=== PATIENT | male | born 1940 | race Caucasian/White ===

== ENCOUNTER 2017-09-05 12:59 | Emergency (ER) | payer MEDICARE, OTHER ==
[2017-09-05 13:29] VITALS: BP 133/52
[2017-09-05] MEDS ORDERED: Take Home: Sulfamethoxazole/Trimethoprim 800-160 MG Tab, 2 Tab Pack PO ONE (13:58)
--- NOTE | 2017-09-05 14:08 | EDM.PDOC ---
ED HPI GENERAL MEDICAL PROBLEM - General Chief Complaint: Genitourinary Problem Stated Complaint: UTI Time Seen by Provider: 09/05/17 13:15 Source of Information: Reports: Patient History Limitations: Reports: No Limitations - History of Present Illness INITIAL COMMENTS - FREE TEXT/NARRATIVE: Patient comes into the emergency department today with a history of 3 or 4 days of foul-smelling urine and cloudy urine. Patient uses a straight catheter to urinate 3-4 times a day. 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 In order to drain out the one pocket he must catheterize 3 times a day to clear that pocket out. He is still able to urinate normally to drain the other bladder pocket. He has a long-standing history with UTIs. His last antibiotic course has been greater than 3 months ago. He last used Bactrim with great success. He would like to evaluate and use this medication again if at all possible. He denies any fever denies any burning denies any low pelvic pain or flank pain denies any nausea vomiting or diarrhea. Onset: Sudden Quality: Reports: Dull, Pressure Severity: Mild - Related Data Allergies Allergy/AdvReac Type Severity Reaction Status Date / Time Iodinated Contrast- Oral and Allergy Severe Anaphylactic Verified 09/05/17 13:20 IV Dye Shock shellfish derived Allergy Severe Anaphylactic Verified 09/05/17 13:20 Shock Lcyadms-Erf-Goi Reductase Allergy Intermediate Liver Verified 09/05/17 13:20 Inhibitor Problems iodine Allergy Unknown Cannot Verified 09/05/17 13:20 Remember Home Meds: Home Meds Sulfamethoxazole/Trimethoprim [Bactrim Ds Tablet] 1 each PO BID 2 Days #4 tablet 09/05/17 [Rx] Past Medical History Genitourinary History: Reports: Renal Disease Other Genitourinary History: Stage 2 Endocrine/Metabolic History: Reports: Diabetes, Type II Oncologic (Cancer) History: Reports: Other (See Below) Other Oncologic History: multiple myeloma Social & Family History - Tobacco Use Smoking Status *Q: Never Smoker - Alcohol Use Days Per Week of Alcohol Use: 0 - Recreational Drug Use Recreational Drug Use: No - Living Situation & Occupation Living situation: Reports: , with Spouse ED ROS GENERAL - Review of Systems Review Of Systems: See Below Constitutional: Reports: No Symptoms HEENT: Reports: No Symptoms Respiratory: Reports: No Symptoms Cardiovascular: Reports: No Symptoms Endocrine: Reports: No Symptoms GI/Abdominal: Reports: No Symptoms : Reports: Urinary Retention, Other (foul smelling urine, cloudy ) Musculoskeletal: Reports: No Symptoms Skin: Reports: No Symptoms ED EXAM, RENAL/ - Physical Exam Exam: See Below Exam Limited By: No Limitations General Appearance: Alert, WD/WN, No Apparent Distress Respiratory/Chest: No Respiratory Distress, No Accessory Muscle Use Cardiovascular: Normal Peripheral Pulses, Regular Rate, Rhythm GI/Abdominal: Normal Bowel Sounds, Soft, Non-Tender, No Distention, No Abnormal Bruit Back Exam: Normal Inspection, Full Range of Motion Extremities: Normal Inspection, Normal Range of Motion, Normal Capillary Refill Neurological: Alert, Oriented, Normal Reflexes Psychiatric: Normal Affect, Normal Mood Skin Exam: Warm, Dry, Intact, Normal Color Course - Vital Signs Last Recorded V/S: Last Vital Signs Temp 37.1 C 09/05/17 13:20 Pulse 79 09/05/17 13:20 Resp 16 09/05/17 13:20 BP 133/52 L 09/05/17 13:20 Pulse Ox 98 09/05/17 13:20 - Orders/Labs/Meds Orders: Active Orders 24 hr Category Date Time Status UA W/MICROSCOPIC [URIN] Stat Lab 09/05/17 13:19 Ordered Sulfamethoxazole/Trimethoprim [Take Home: Sulfameth/ Med 09/05/17 13:58 Once Trimet 800-160MG, 2 Pack] 1 packet PO ONETIME ONE Labs: Laboratory Tests 09/05/17 Range/Units 13:19 Urine Color Yellow (YELLOW) Urine Appearance Cloudy H (CLEAR) Urine pH 5.0 (5.0-8.0) Ur Specific Hiram <=1.005 Urine Protein 100 H (NEGATIVE) mg/dL Urine Glucose (UA) Negative (NEGATIVE) mg/dL Urine Ketones Negative (NEGATIVE) mg/dL Urine Occult Blood Moderate H (NEGATIVE) Urine Nitrite Negative (NEGATIVE) Urine Bilirubin Negative (NEGATIVE) Urine Urobilinogen 0.2 (0.2) EU/dL Ur Leukocyte Esterase Large H (NEGATIVE) Urine RBC 30-40 H (NOT SEEN) /HPF Urine WBC Packed (NOT SEEN) /HPF Ur Squamous Epith Cells Few H (NEGATIVE) /HPF Urine Bacteria Many H (NEGATIVE) /HPF Urine Mucus Not seen (NEGATIVE) /LPF Departure - Departure Time of Disposition: 14:00 Disposition: Home, Self-Care 01 Condition: Good Clinical Impression: UTI (urinary tract infection) Qualifiers: Urinary tract infection type: site unspecified Hematuria presence: without hematuria Qualified Code(s): N39.0 - Urinary tract infection, site not specified - Discharge Information Instructions: Urinary Tract Infection, Adult, Sulfamethoxazole; Trimethoprim, SMX-TMP tablets Referrals: Anny Ribera, [Primary Care Provider] - Additional Instructions: 1. rest 2. increase water intake 3. Can take ibuprofen or Tylenol for pain and discomfort 4. Avoid irritating products 5. Follow up with PCP if not better within a week 6. Did send urine for urine culture will call with results - My Orders Last 24 Hours: My Active Orders 09/05/17 13:19 UA W/MICROSCOPIC [URIN] Stat 09/05/17 13:58 Sulfamethoxazole/Trimethoprim [Take Home: Sulfameth/Trimet 800-160MG, 2 Pack] 1 packet PO ONETIME ONE - Assessment/Plan Last 24 Hours: My Active Orders 09/05/17 13:19 UA W/MICROSCOPIC [URIN] Stat 09/05/17 13:58 Sulfamethoxazole/Trimethoprim [Take Home: Sulfameth/Trimet 800-160MG, 2 Pack] 1 packet PO ONETIME ONE Assessment:: 1. UTI Plan: 1. UA/UC completed in the ER today 2. patient is prescribed Bactrim for 3 days. If culture comes back positive with an organism that is resistant to Bactrim staff will contact the patient and order a different antibiotic per provider who will be on shift 3. Education provided to the patient regarding UTI symptoms and ways to reduce his comfort 4. Patient is advised to follow up with PCP U or urology specialty within the week regarding long-term management if necessary 5. Patient was sent home with 2 Bactrim tablets from the ER today and a prescription for 2 extra days was supplied to be filled on wednesday
== END 2017-09-05 14:15 | disposition home or self-care (01) ==
LOC: VM.ED 12:59
DX: N39.0 Urinary tract infection, site not specified (principal); N32.89 Other specified disorders of bladder; E11.22 Type 2 diabetes mellitus with diabetic chronic kidney disease; N18.2 Chronic kidney disease, stage 2 (mild); Z96.0 Presence of urogenital implants; Z91.041 Radiographic dye allergy status; Z91.013 Allergy to seafood
CPT/HCPCS: 81001; 87086; 87088; 87186; 99283; A9270

== ENCOUNTER 2018-08-22 04:58 | Emergency (ER) | payer MEDICARE, OTHER ==
[2018-08-22] MEDS ORDERED: Sodium Chloride 0.9% 10 ML Syringe FLUSH PRN (05:09)
[2018-08-22] MEDS ORDERED: Furosemide 40 MG/4 ML VIAL IV ONE ×2 (05:11→06:22)
--- NOTE | 2018-08-22 06:06 | EDM.PDOC ---
ED HPI GENERAL MEDICAL PROBLEM - General Chief Complaint: Respiratory Problem Stated Complaint: Shortness of breath Time Seen by Provider: 08/22/18 05:00 Source of Information: Reports: Patient History Limitations: Reports: No Limitations - History of Present Illness INITIAL COMMENTS - FREE TEXT/NARRATIVE: Pt. presents to ER with complaints of respiratory distress. He states that he has had a "cold" for the past several days with cough and chest congestion. He states that he became increasingly short of breath yesterday and last night. Denies any chest pain. No nausea, vomiting, or diarrhea. states that the patient has been chilled. Denies any purulent sputum. Pt. has a history of CAD according to his medical record but he denies this. He also has a history of aortic regurgitation. Last echo shows EF of 60% and dilation of the L ventricle. Pt. was picked up by EMS this AM. He was given a duoneb via EMS. Pt. reports is dyspnea improved since taking the nebulizer. Pt. has a history of chronic peripheral edema and states that this is not worse than normal. He has not been weighing himself. He states that he has been taking his medications as prescribed. Onset Date: 08/21/18 Associated Symptoms: Reports: Shortness of Breath Treatments FISH FRYER: Reports: Breathing Treatments, Oxygen Other Treatments FISH FRYER: Duo neb - Related Data Allergies Allergy/AdvReac Type Severity Reaction Status Date / Time Iodinated Contrast- Oral and Allergy Severe Anaphylactic Verified 08/22/18 05:34 IV Dye Shock shellfish derived Allergy Severe Anaphylactic Verified 08/22/18 05:34 Shock iodine Allergy Unknown Cannot Verified 08/22/18 05:34 Remember Apewdyq-Rht-Fwz Reductase AdvReac Intermediate Liver Verified 08/22/18 05:34 Inhibitor Problems Past Medical History Cardiovascular History: Reports: CAD Genitourinary History: Reports: Renal Disease Other Genitourinary History: Stage 2 Endocrine/Metabolic History: Reports: Diabetes, Type II Oncologic (Cancer) History: Reports: Other (See Below) Other Oncologic History: multiple myeloma Social & Family History - Living Situation & Occupation Living situation: Reports: , with Spouse ED ROS GENERAL - Review of Systems Review Of Systems: See Below Constitutional: Reports: Fever, Chills, Malaise, Fatigue HEENT: Reports: No Symptoms Respiratory: Reports: Shortness of Breath, Cough Cardiovascular: Reports: No Symptoms, Edema, Lightheadedness Endocrine: Reports: No Symptoms GI/Abdominal: Reports: No Symptoms : Reports: No Symptoms Musculoskeletal: Reports: No Symptoms Skin: Reports: No Symptoms Neurological: Reports: No Symptoms Psychiatric: Reports: No Symptoms Hematologic/Lymphatic: Reports: No Symptoms Immunologic: Reports: No Symptoms ED EXAM, GENERAL - Physical Exam Exam: See Below Exam Limited By: No Limitations General Appearance: Alert, WD/WN, No Apparent Distress Throat/Mouth: Normal Inspection, Normal Lips, Normal Teeth, Normal Gums, No Airway Compromise Neck: Normal Inspection, Supple, Non-Tender Respiratory/Chest: No Respiratory Distress, Lungs Clear, Normal Breath Sounds, No Accessory Muscle Use, Chest Non-Tender Cardiovascular: Normal Peripheral Pulses, Regular Rate, Rhythm, No Edema, No Gallop, No JVD, No Murmur, No Rub Peripheral Pulses: 3+: Radial (R) GI/Abdominal: Normal Bowel Sounds, Soft, Non-Tender, No Organomegaly, No Distention (Male) Exam: Deferred Rectal (Males) Exam: Deferred Back Exam: Normal Inspection, Full Range of Motion Extremities: Normal Inspection, Normal Range of Motion Neurological: Alert, Oriented, CN II-XII Intact, Normal Cognition, No Motor/ Sensory Deficits Psychiatric: Normal Affect, Anxious Skin Exam: Warm, Dry, No Rash, Pallor EKG INTERPRETATION Rhythm: NSR [place]: Normal P-Wave: Present QRS: RBBB ST-T: Normal QT: Normal Course - Vital Signs Last Recorded V/S: Last Vital Signs Temp 37.3 C 08/22/18 05:00 Pulse 100 08/22/18 05:00 Resp 20 08/22/18 05:00 BP 165/71 H 08/22/18 05:00 Pulse Ox 96 08/22/18 05:30 - Orders/Labs/Meds Orders: Active Orders 24 hr Category Date Time Status Cardiac Monitoring [RC] CONTINUOUS Care 08/22/18 05:09 Active EKG Documentation Completion [RC] STAT Care 08/22/18 05:09 Active Oxygen Therapy [RC] PRN Care 08/22/18 05:09 Active Chest 1V Frontal [CR] Stat Exams 08/22/18 05:10 Taken CBC WITH AUTO DIFF [HEME] Stat Lab 08/22/18 05:42 Results COMPREHENSIVE METABOLIC PN,CMP [CHEM] Stat Lab 08/22/18 05:42 Received CRP [C-REACTIVE PROTEIN] [CHEM] Stat Lab 08/22/18 05:42 Received LACTIC ACID [CHEM] Stat Lab 08/22/18 05:42 Received MAGNESIUM [CHEM] Stat Lab 08/22/18 05:42 Received MANUAL DIFFERENTIAL QA/NC [HEME] Stat Lab 08/22/18 05:42 Results PHOSPHORUS [CHEM] Stat Lab 08/22/18 05:42 Received PRO B-TYPE NATRIUR PEPT,BNPPRO [CHEM] Stat Lab 08/22/18 05:42 Received TSH ULTRASENSITIVE [CHEM] Stat Lab 08/22/18 05:42 Received Sodium Chloride 0.9% [Saline Flush] Med 08/22/18 05:09 Active 10 ml FLUSH ASDIRECTED PRN Peripheral IV Insertion Adult [OM.PC] Routine Oth 08/22/18 05:10 Ordered Medication Orders Sodium Chloride (Saline Flush) 10 ml FLUSH ASDIRECTED PRN PRN Reason: Keep Vein Open Labs: Laboratory Tests 08/22/18 08/22/18 08/22/18 Range/Units 05:42 05:42 05:48 WBC 4.4 (4.0-10.0) x10^3/uL RBC 2.85 L (4.5-6.0) x10^6/uL Hgb 9.7 L (14.0-18.0) g/dL Hct 29.6 L (40.0-52.0) % MCV 103.9 H (78.0-93.0) fL MCH 34.0 H (26.0-32.0) pg MCHC 32.8 (32.0-36.0) g/dL RDW Coeff of Naz 13.3 (10.0-15.0) % Plt Count 90 L (130-400) x10^3/uL Add Manual Diff Yes PT 11.2 (10.0-12.8) SEC INR 1.0 L (2.0-3.5) POC Troponin I 7.95 H* (0.00-0.08) ng/mL POC Result Comm Called critical res Meds: Medications Generic Name Dose Route Start Last Admin Trade Name Freq PRN Reason Stop Dose Admin Sodium Chloride 10 ml 08/22/18 05:09 Saline Flush FLUSH ASDIRECTED PRN Keep Vein Open Discontinued Medications Generic Name Dose Route Start Last Admin Trade Name Freq PRN Reason Stop Dose Admin Furosemide 40 mg 08/22/18 05:11 Lasix IV 08/22/18 05:12 ONETIME ONE - Radiology Interpretation Free Text/Narrative:: cardiomegaly, no obvious infiltrate or failure pattern. - Re-Assessments/Exams Free Text/Narrative Re-Assessment/Exam: 08/22/18 06:27 Pt. was given 1 duoneb treatment and reported some improvement in dyspnea. Pt. is being given lasix 40mg IV. Free Text/Narrative Re-Assessment/Exam: 08/22/18 06:44 Pt. was given lasix 40mg IV. He was started on heparin 4000u bolus and a 1000u/ hr drip. Departure - Departure Time of Disposition: 06:46 Disposition: Home, Self-Care 01 Clinical Impression: CHF, Congestive heart failure, NSTEMI (non-ST elevated myocardial infarction) - Discharge Information Forms: ED Department Discharge - Problem List Review Problem List Initiated/Reviewed/Updated: Yes - My Orders Last 24 Hours: My Active Orders 08/22/18 05:09 Cardiac Monitoring [RC] CONTINUOUS EKG Documentation Completion [RC] STAT Oxygen Therapy [RC] PRN Sodium Chloride 0.9% [Saline Flush] 10 ml FLUSH ASDIRECTED PRN 08/22/18 05:10 Chest 1V Frontal [CR] Stat Peripheral IV Insertion Adult [OM.PC] Routine 08/22/18 05:42 CBC WITH AUTO DIFF [HEME] Stat COMPREHENSIVE METABOLIC PN,CMP [CHEM] Stat CRP [C-REACTIVE PROTEIN] [CHEM] Stat LACTIC ACID [CHEM] Stat MAGNESIUM [CHEM] Stat MANUAL DIFFERENTIAL QA/NC [HEME] Stat PHOSPHORUS [CHEM] Stat PRO B-TYPE NATRIUR PEPT,BNPPRO [CHEM] Stat TSH ULTRASENSITIVE [CHEM] Stat - Assessment/Plan Last 24 Hours: My Active Orders 08/22/18 05:09 Cardiac Monitoring [RC] CONTINUOUS EKG Documentation Completion [RC] STAT Oxygen Therapy [RC] PRN Sodium Chloride 0.9% [Saline Flush] 10 ml FLUSH ASDIRECTED PRN 08/22/18 05:10 Chest 1V Frontal [CR] Stat Peripheral IV Insertion Adult [OM.PC] Routine 08/22/18 05:42 CBC WITH AUTO DIFF [HEME] Stat COMPREHENSIVE METABOLIC PN,CMP [CHEM] Stat CRP [C-REACTIVE PROTEIN] [CHEM] Stat LACTIC ACID [CHEM] Stat MAGNESIUM [CHEM] Stat MANUAL DIFFERENTIAL QA/NC [HEME] Stat PHOSPHORUS [CHEM] Stat PRO B-TYPE NATRIUR PEPT,BNPPRO [CHEM] Stat TSH ULTRASENSITIVE [CHEM] Stat Plan: Pt. will be transferred via [facility] ground ambulance. Dr. Alcantara accepts the patient in transfer. Will continue telemetry and O2 per NC. Discussed findings with patient and . All questions were answered.
[2018-08-22 06:21] LABS: ANION GAP 19.1 mmol/L (10-20)
[2018-08-22] MEDS ORDERED: Heparin Sodium 5,000 Units/ML Vial IVPUSH ONE ×2 (06:36→06:41)
[2018-08-22] MEDS ORDERED: Heparin Sodium/0.45% NaCl 25,000 UNITS/500 ML BAG IV SCH ×2 (06:45)
--- NOTE | 2018-08-22 08:09 | CR ---
[id number] RAD/RAD Chest PA or AP 1V EXAM: SINGLE VIEW CHEST. INDICATION: SHORTNESS OF BREATH COMPARISON: CORRELATION IS MADE WITH THE EXAM OF MARCH 16, 2018. FINDINGS: The lungs are clear. The cardiomediastinal contour is enlarged but stable. IMPRESSION: NO PNEUMONIA OR EDEMA. Galileo Tripathi MD 08/22/18 0808 Thank you for allowing us to participate in the care of your patient.
[2018-08-22 09:59] VITALS: BP 129/78
== END 2018-08-22 10:20 | disposition home or self-care (01) ==
LOC: VM.ED 04:58
DX: I21.4 Non-ST elevation (NSTEMI) myocardial infarction (principal); I50.9 Heart failure, unspecified; E11.22 Type 2 diabetes mellitus with diabetic chronic kidney disease; N18.2 Chronic kidney disease, stage 2 (mild); I25.10 Atherosclerotic heart disease of native coronary artery without angina pectoris; Z85.828 Personal history of other malignant neoplasm of skin; Z91.013 Allergy to seafood; Z91.09 Other allergy status, other than to drugs and biological substances; Z88.8 Allergy status to other drugs, medicaments and biological substances; Z91.041 Radiographic dye allergy status
CPT/HCPCS: 36415; 71045; 80053; 83605; 83735; 83880; 84100; 84443; 84484; 85025; 85610; 86140; 93005; 93010; 96365; 96366; 96375; 99284-GF; 99285-25; J1644; J1940

== ENCOUNTER 2019-04-15 22:41 | Emergency (ER) | payer MEDICARE, OTHER ==
[2019-04-15 22:49] VITALS: BP 143/64; PULSE 103
[2019-04-15] MEDS ORDERED: Acetaminophen 325 MG Tab PO ONE (22:58)
--- NOTE | 2019-04-15 22:59 | EDM.PDOC ---
ED HPI GENERAL MEDICAL PROBLEM - General Chief Complaint: Fever Stated Complaint: low grade fever Time Seen by Provider: 04/15/19 22:55 Source of Information: Reports: Patient, Family History Limitations: Reports: No Limitations - History of Present Illness INITIAL COMMENTS - FREE TEXT/NARRATIVE: The patient comes in with a fever. He did not take any Tylenol at home. He does have multiple myeloma. His was inquiring about whether or not he got sick when he went to the [facility] for a hamburger. Patient states that that is a possibility. Patient also described to me that he has a complicated bladder and that he has had a history of self cathetering. I did talk to him about prostate issues but he quickly dismissed that and he has a chronic urinary tract infection that he is trying to combat. He has tolerated Bactrim in the past. And with good success. Therefore I was going to put him on that he was unable to give us a urinary specimen. We gave him fluids and water and he was unable to pass his urine. He started sleeping. Chest x-ray was normal. I was concerned about sepsis but he did not have leukocytosis. Patient brought in the urinary specimen the next day and that tested positive for a urinary tract infection culture is pending and I recommended Bactrim. His called back carious of the anabiotic choice and she said that she will be talking to their primary. I also gave him a prescription for and she knew a shot of the Bactrim and tried to reiterate that I did not pick this medication without some Haines and some direction. At any rate I do hope that he will get on the management that he needs. His pulse came down to the 80s after treating his fever. When he left he was afebrile. Having very little suprapubic discomfort or dysuria per say and nothing beyond his baseline. Onset: Today Duration: Getting Worse Location: Reports: Generalized Improves with: Reports: None Worsens with: Reports: None Context: Reports: Sick Contact (maybe today) Associated Symptoms: Reports: Fever/Chills, Loss of Appetite, Malaise - Related Data Allergies Allergy/AdvReac Type Severity Reaction Status Date / Time Iodinated Contrast Media Allergy Severe Anaphylactic Verified 04/15/19 22:43 Shock shellfish derived Allergy Severe Anaphylactic Verified 04/15/19 22:43 Shock iodine Allergy Unknown Cannot Verified 04/15/19 22:43 Remember Clogcsn-Siv-Nhh Reductase AdvReac Intermediate Liver Verified 04/15/19 22:43 Inhibitor Problems Home Meds: Home Meds Betamethasone Dipropionate [Diprosone 0.05% Crm] 1 applic TOP DAILY 09/20/18 [ History] Clotrimazole/Betamethasone Dip [Lotrisone Cream] 1 applic TOP BID PRN 09/20/18 [ History] Cyanocobalamin (Vitamin B-12) [Vitamin B-12] 1 tab PO DAILY 09/20/18 [History] Ergocalciferol (Vitamin D2) [Vitamin D2] 1.25 mg PO Q7D 09/20/18 [History] Gabapentin [Neurontin] 200 mg PO TID 09/20/18 [History] Glucosamine/D3/Boswellia Cris [Glucosamine Daily Complex Tab] 2 tab PO DAILY [History] Isosorbide Dinitrate 20 mg PO TID 09/20/18 [History] L.acidoph,Paracasei, B.lactis [Probiotic] 1 cap PO DAILY 09/20/18 [History] Magnesium Chloride [Mag-64] 64 mg PO QID 09/20/18 [History] Nitroglycerin 0.4 mg SL ASDIRECTED PRN 09/20/18 [History] Rosuvastatin Calcium 20 mg PO BEDTIME 09/20/18 [History] Tamsulosin [Tamsulosin 24 Hr] 0.4 mg PO BEDTIME 09/20/18 [History] Vit B Cmplx NO3/Fa/C/Biot/Zinc [Nephplex Rx] 1 tab PO DAILY 09/20/18 [History] Furosemide [Lasix] 20 mg PO DAILY PRN 04/15/19 [History] Ixazomib Citrate [Ninlaro] 1 tab PO ASDIRECTED 04/15/19 [History] valACYclovir [Valtrex] 1 tab PO DAILY 04/15/19 [History] Sulfamethoxazole/Trimethoprim [Bactrim Ds Tablet] 1 each PO DAILY #10 tablet 12/26 [Rx] Past Medical History Cardiovascular History: Reports: CAD Gastrointestinal History: Reports: GERD Genitourinary History: Reports: Renal Disease Other Genitourinary History: Stage 2 Endocrine/Metabolic History: Reports: Diabetes, Type II Oncologic (Cancer) History: Reports: Other (See Below) Other Oncologic History: multiple myeloma Social & Family History - Tobacco Use Smoking Status *Q: Never Smoker - Living Situation & Occupation Living situation: Reports: , with Spouse ED ROS GENERAL - Review of Systems Review Of Systems: Comprehensive ROS is negative, except as noted in HPI. ED EXAM, GENERAL - Physical Exam Exam: See Below Exam Limited By: No Limitations General Appearance: Alert, Mild Distress Respiratory/Chest: No Respiratory Distress, Lungs Clear Cardiovascular: Normal Peripheral Pulses, Regular Rate, Rhythm GI/Abdominal: Normal Bowel Sounds, Soft, Non-Tender, Other (No pain about the suprapubic area.) Course - Vital Signs Last Recorded V/S: Last Vital Signs Temp 37.6 C 04/16/19 00:50 Pulse 103 H 04/15/19 22:45 Resp 18 04/15/19 22:45 BP 143/64 H 04/15/19 22:45 Pulse Ox 95 04/15/19 22:45 - Orders/Labs/Meds Orders: Active Orders 24 hr Category Date Time Status CULTURE BLOOD [BC] Stat Lab 04/15/19 23:17 Received CULTURE BLOOD [BC] Stat Lab 04/15/19 23:22 Received CULTURE URINE [RM] Stat Lab 04/15/19 23:56 Ordered Blood Culture x2 Reflex Set [OM.PC] Stat Oth 04/15/19 22:56 Ordered Labs: Laboratory Tests 04/15/19 04/15/19 04/15/19 Range/Units 23:17 23:17 23:17 WBC 9.8 (4.0-10.0) x10^3/uL RBC 3.44 L (4.5-6.0) x10^6/uL Hgb 10.9 L (14.0-18.0) g/dL Hct 33.4 L (40.0-52.0) % MCV 97.1 H D (78.0-93.0) fL MCH 31.7 (26.0-32.0) pg MCHC 32.6 (32.0-36.0) g/dL RDW Coeff of Naz 14.9 (10.0-15.0) % Plt Count 154 (130-400) x10^3/uL Neut % (Auto) 83.1 H (50.0-80.0) % Lymph % (Auto) 7.0 L (25.0-50.0) % [place] % (Auto) 9.5 (2.0-11.0) % Eos % (Auto) 0.2 (0.0-4.0) % Baso % (Auto) 0.2 (0.2-1.2) % Sodium 136 (136-145) mmol/L Potassium 5.0 (3.5-5.1) mmol/L Chloride 101 (98-107) mmol/L Carbon Dioxide 20 L (21-32) mmol/L Anion Gap 20.0 (10-20) mmol/L BUN 50 H (7-18) mg/dL Creatinine 3.0 H (0.70-1.30) mg/dL Est Cr Clr Drug Dosing TNP Estimated GFR (MDRD) 20 Glucose 125 H (74-106) mg/dL Lactic Acid 0.9 (0.4-2.0) mmol/L Calcium 9.6 (8.5-10.1) mg/dL Corrected Calcium 10.24 H (8.5-10.1) mg/dL Magnesium 1.6 L (1.8-2.4) mg/dL Total Bilirubin 0.5 (0.2-1.0) mg/dL AST 14 L (15-37) U/L ALT 28 (16-63) U/L Alkaline Phosphatase 95 (46-116) U/L C-Reactive Protein 3.9 H (<=0.9) mg/dL Total Protein 8.0 (6.4-8.2) g/dL Albumin 3.2 L (3.4-5.0) g/dL Globulin 4.8 Albumin/Globulin Ratio 0.67 Meds: Medications Discontinued Medications Generic Name Dose Route Start Last Admin Trade Name Freq PRN Reason Stop Dose Admin Acetaminophen 650 mg 04/15/19 22:58 04/15/19 23:12 Tylenol PO 04/15/19 22:59 650 mg NOW ONE Administration Trimethoprim/Sulfamethoxazole 1 packet 04/16/19 15:28 04/16/19 15:48 Take Home: Sulfameth/Trimet 800-160mg, 2 Pack PO 04/16/19 15:29 1 packet ONETIME ONE Administration Departure - Departure Time of Disposition: 00:47 Disposition: Home, Self-Care 01 Condition: Good Clinical Impression: Dysuria, Febrile illness, acute - Discharge Information *PRESCRIPTION DRUG MONITORING PROGRAM REVIEWED*: Not Applicable *COPY OF PRESCRIPTION DRUG MONITORING REPORT IN PATIENT TRAY: Not Applicable Prescriptions: Sulfamethoxazole/Trimethoprim [Bactrim Ds Tablet] 1 each PO DAILY #10 tablet Referrals: Anny Ribera DO [Primary Care Provider] - Forms: ED Department Discharge Additional Instructions: ED HPI GENERAL MEDICAL PROBLEM - General Chief Complaint: Fever Stated Complaint: low grade fever Time Seen by Provider: 04/15/19 22:55 Source of Information: Reports: Patient, Family History Limitations: Reports: No Limitations - History of Present Illness Onset: Today Duration: Getting Worse Location: Reports: Generalized Improves with: Reports: None Worsens with: Reports: None Context: Reports: Sick Contact (maybe today) Associated Symptoms: Reports: Fever/Chills, Loss of Appetite, Malaise - Related Data Allergies Allergy/AdvReac Type Severity Reaction Status Date / Time Iodinated Contrast Media Allergy Severe Anaphylactic Verified 04/15/19 22:43 Shock shellfish derived Allergy Severe Anaphylactic Verified 04/15/19 22:43 Shock iodine Allergy Unknown Cannot Verified 04/15/19 22:43 Remember Yknhasb-Jzv-Ycq Reductase AdvReac Intermediate Liver Verified 04/15/19 22:43 Inhibitor Problems Home Meds: Home Meds Betamethasone Dipropionate [Diprosone 0.05% Crm] 1 applic TOP DAILY 09/20/18 [ History] Clotrimazole/Betamethasone Dip [Lotrisone Cream] 1 applic TOP BID PRN 09/20/18 [ History] Cyanocobalamin (Vitamin B-12) [Vitamin B-12] 1 tab PO DAILY 09/20/18 [History] Ergocalciferol (Vitamin D2) [Vitamin D2] 1.25 mg PO Q7D 09/20/18 [History] Gabapentin [Neurontin] 200 mg PO TID 09/20/18 [History] Glucosamine/D3/Boswellia Cris [Glucosamine Daily Complex Tab] 2 tab PO DAILY [History] Isosorbide Dinitrate 20 mg PO TID 09/20/18 [History] L.acidoph,Paracasei, B.lactis [Probiotic] 1 cap PO DAILY 09/20/18 [History] Magnesium Chloride [Mag-64] 64 mg PO QID 09/20/18 [History] Nitroglycerin 0.4 mg SL ASDIRECTED PRN 09/20/18 [History] Rosuvastatin Calcium 20 mg PO BEDTIME 09/20/18 [History] Tamsulosin [Tamsulosin 24 Hr] 0.4 mg PO BEDTIME 09/20/18 [History] Vit B Cmplx NO3/Fa/C/Biot/Zinc [Nephplex Rx] 1 tab PO DAILY 09/20/18 [History] Furosemide [Lasix] 20 mg PO DAILY PRN 04/15/19 [History] Ixazomib Citrate [Ninlaro] 1 tab PO ASDIRECTED 04/15/19 [History] valACYclovir [Valtrex] 1 tab PO DAILY 04/15/19 [History] Past Medical History Cardiovascular History: Reports: CAD Gastrointestinal History: Reports: GERD Genitourinary History: Reports: Renal Disease Other Genitourinary History: Stage 2 Endocrine/Metabolic History: Reports: Diabetes, Type II Oncologic (Cancer) History: Reports: Other (See Below) Other Oncologic History: multiple myeloma Social & Family History - Tobacco Use Smoking Status *Q: Never Smoker - Living Situation & Occupation Living situation: Reports: , with Spouse Course - Vital Signs Last Recorded V/S: Last Vital Signs Temp 38.3 C H 04/15/19 22:45 Pulse 103 H 04/15/19 22:45 Resp 18 04/15/19 22:45 BP 143/64 H 04/15/19 22:45 Pulse Ox 95 04/15/19 22:45 - Orders/Labs/Meds Orders: Active Orders 24 hr Category Date Time Status CXR [Chest 1V Frontal] [CR] Stat Exams 04/15/19 22:58 Ordered CBC WITH AUTO DIFF [HEME] Stat Lab 04/15/19 22:56 Ordered COMPREHENSIVE METABOLIC PN,CMP [CHEM] Stat Lab 04/15/19 22:56 Ordered CRP [C-REACTIVE PROTEIN] [CHEM] Stat Lab 04/15/19 22:56 Ordered CULTURE BLOOD [BC] Stat Lab 04/15/19 22:56 Ordered CULTURE BLOOD [BC] Stat Lab 04/15/19 22:56 Ordered LACTIC ACID [CHEM] Stat Lab 04/15/19 22:56 Ordered MAGNESIUM [CHEM] Stat Lab 04/15/19 22:56 Ordered Blood Culture x2 Reflex Set [OM.PC] Stat Oth 04/15/19 22:56 Ordered Meds: Medications Discontinued Medications Generic Name Dose Route Start Last Admin Trade Name Elio PRN Reason Stop Dose Admin Acetaminophen 650 mg 04/15/19 22:58 Tylenol PO 04/15/19 22:59 NOW ONE Departure - Departure Time of Disposition: 22:55 Disposition: Home, Self-Care 01 Condition: Good - Discharge Information *PRESCRIPTION DRUG MONITORING PROGRAM REVIEWED*: Not Applicable *COPY OF PRESCRIPTION DRUG MONITORING REPORT IN PATIENT TRAY: Not Applicable Referrals: Anny Ribera, DO [Primary Care Provider] - Forms: ED Department Discharge - My Orders Last 24 Hours: My Active Orders 04/15/19 22:56 CBC WITH AUTO DIFF [HEME] Stat COMPREHENSIVE METABOLIC PN,CMP [CHEM] Stat CRP [C-REACTIVE PROTEIN] [CHEM] Stat CULTURE BLOOD [BC] Stat CULTURE BLOOD [BC] Stat LACTIC ACID [CHEM] Stat MAGNESIUM [CHEM] Stat Blood Culture x2 Reflex Set [OM.PC] Stat 04/15/19 22:58 CXR [Chest 1V Frontal] [CR] Stat - Assessment/Plan Last 24 Hours: My Active Orders 04/15/19 22:56 CBC WITH AUTO DIFF [HEME] Stat COMPREHENSIVE METABOLIC PN,CMP [CHEM] Stat CRP [C-REACTIVE PROTEIN] [CHEM] Stat CULTURE BLOOD [BC] Stat CULTURE BLOOD [BC] Stat LACTIC ACID [CHEM] Stat MAGNESIUM [CHEM] Stat Blood Culture x2 Reflex Set [OM.PC] Stat 04/15/19 22:58 CXR [Chest 1V Frontal] [CR] Stat Lab work looks good. Chest X-ray appears normal. Take the antibiotics as prescibed. - My Orders Last 24 Hours: My Active Orders 04/15/19 22:56 Blood Culture x2 Reflex Set [OM.PC] Stat 04/15/19 23:17 CULTURE BLOOD [BC] Stat 04/15/19 23:22 CULTURE BLOOD [BC] Stat 04/15/19 23:56 CULTURE URINE [RM] Stat - Assessment/Plan Last 24 Hours: My Active Orders 04/15/19 22:56 Blood Culture x2 Reflex Set [OM.PC] Stat 04/15/19 23:17 CULTURE BLOOD [BC] Stat 04/15/19 23:22 CULTURE BLOOD [BC] Stat 04/15/19 23:56 CULTURE URINE [RM] Stat
[2019-04-15 23:50] LABS: CHLORIDE,CL 101 mmol/L (98-107); SODIUM,NA 136 mmol/L (136-145)
--- NOTE | 2019-04-16 07:10 | CR ---
[id number] RAD/RAD Chest PA or AP 1V EXAM: SINGLE VIEW CHEST. INDICATION: SHORTNESS OF BREATH COMPARISON: CORRELATION IS MADE WITH THE EXAM OF AUGUST 22, 2018 FINDINGS: The lungs are clear. The cardiac silhouette is enlarged but stable IMPRESSION: NO PNEUMONIA OR EDEMA Galileo Tripathi MD 04/16/19 0708 Thank you for allowing us to participate in the care of your patient.
[2019-04-16] MEDS ORDERED: Take Home: Sulfamethoxazole/Trimethoprim 800-160 MG Tab, 2 Tab Pack PO ONE (15:28)
== END 2019-04-16 00:54 | disposition home or self-care (01) ==
LOC: VM.ED 22:41
DX: R50.9 Fever, unspecified (principal); R30.0 Dysuria; E11.9 Type 2 diabetes mellitus without complications; Z88.8 Allergy status to other drugs, medicaments and biological substances; Z91.041 Radiographic dye allergy status; Z91.013 Allergy to seafood
CPT/HCPCS: 36415; 71045; 80053; 83605; 83735; 85025; 86140; 87040; 99284-25; 99284-GF; A9270-GY

== ENCOUNTER 2019-04-17 13:35 | Inpatient (IN) | payer MEDICARE, OTHER ==
[2019-04-17] MEDS ORDERED: Nitroglycerin 0.4 MG Tab.SL SL PRN (17:16)
[2019-04-17] MEDS ORDERED: ZALEPLON 5 MG PO PRN (17:16)
[2019-04-17] MEDS ORDERED: IXAZOMIB CITRATE 3 MG PO SCH (17:30)
[2019-04-17] MEDS ORDERED: Aspirin 81 MG Tab.Chew PO SCH (18:00)
[2019-04-17] MEDS ORDERED: Ergocalciferol (Vitamin D2) 1.25 MG Cap PO SCH (18:00)
[2019-04-17] MEDS: Heparin Sodium 5,000 Units/ML Vial SUBCUT SCH ×2 (18:04→22:19)
[2019-04-17] MEDS: Meropenem 1 GM SDV IVPUSH SCH (18:05)
[2019-04-17] MEDS: SODIUM ZIRCONIUM CYCLOSILICATE 10 GM PO SCH (18:14)
[2019-04-17] MEDS: Magnesium Chloride 64 MG Tab.ER PO SCH (19:27)
[2019-04-17] MEDS: Gabapentin 100 MG Cap PO SCH (19:27)
[2019-04-17] MEDS: Isosorbide Dinitrate 10 MG Tab PO SCH (19:27)
[2019-04-17] MEDS: Sodium Chloride 0.9% 10 ML Syringe FLUSH PRN (19:28)
[2019-04-17] MEDS ORDERED: Gabapentin 100 MG Cap PO SCH (20:00)
[2019-04-17] MEDS ORDERED: atorvaSTATin 40 MG Tab PO SCH (20:00)
[2019-04-17] MEDS ORDERED: Tamsulosin 0.4 MG Cap.ER PO SCH (20:00)
[2019-04-18] MEDS: Heparin Sodium 5,000 Units/ML Vial SUBCUT SCH ×2 (06:27→15:22)
[2019-04-18] MEDS: Sodium Chloride 0.9% 10 ML Syringe FLUSH PRN ×2 (06:27→06:28)
[2019-04-18] MEDS: Meropenem 1 GM SDV IVPUSH SCH (06:27)
[2019-04-18 07:17] LABS: ANION GAP 18.2 mmol/L (10-20)
[2019-04-18] MEDS: Gabapentin 100 MG Cap PO SCH (07:43)
[2019-04-18] MEDS: Isosorbide Dinitrate 10 MG Tab PO SCH ×2 (07:43→11:16)
[2019-04-18] MEDS: Magnesium Chloride 64 MG Tab.ER PO SCH ×3 (07:44→15:22)
[2019-04-18] MEDS ORDERED: Vitamin B Complex Tab.ER PO SCH (08:00)
[2019-04-18] MEDS ORDERED: Lactobacillus Rhamnosus GG (Probiotic) Cap PO SCH (08:00)
[2019-04-18] MEDS ORDERED: valACYclovir 1,000 MG Tab PO SCH (08:00)
[2019-04-18] MEDS ORDERED: Magnesium Sulfate/Water 2 GM in Premix Bag 1 BAG IV ONE (09:12)
--- NOTE | 2019-04-18 10:35 | HP ---
CHIEF COMPLAINT: Urinary tract infection. HISTORY OF PRESENT ILLNESS: This 79-year-old male with multiple myeloma and chronic kidney disease stage 4 with a history of recurrent UTIs with history of urethral stricture. He does straight caths about 4 times at home. He has had previous ESBL, last infection was in December. He had been having a low-grade fever, went into the ER on , but they were unable to get a urine sample. He did collect a specimen, brought it back the next day, which was positive. He admits he is having some burning when he pees normally. He is able to pee some. He pees more as the day goes on, it works better. He has no new low back pain. He has no suprapubic abdominal pain. He has not had any high fevers, but he just does not feel well. Last night he had some pretty bad epigastric pain, but it did not get worse like when he had his heart attack. He tried some soda. It did not help. It lasted maybe an hour. He finally took nitroglycerin and it went away. The patient actually had an [place] back in August. He was recommended for bypass surgery, but given his medical comorbidities, it was decided that he would not have surgery. His EF was 45 to 50% at that time. He has not noticed any trouble breathing. No increased swelling. He actually has nitroglycerin, which he has taken a fair amount of for quite sometime, especially like if he eats later like at 6:30. He is on a new treatment called Ninlaro 1 time a week, which is due today. He has been on this treatment like 6 to 8 weeks for the myeloma. The patient is no longer on steroids. He has quit his Aldactone. He follows with a kidney specialist. Otherwise, he did have 100.4 temp last night. He continues to have urinary frequency. No blood. ALLERGIES: Include contrast dye, iodine, shellfish, statins. MEDICATIONS: His medication list is reviewed and shows Valtrex 500 daily, Ninlaro 3 mg once a week, Neurontin twice a day, Flomax 0.4 at bedtime, Lasix as needed for swelling, Sonata, nitroglycerin, Isordil 20 mg 3 times a day, Sodium Zirconium Cyclosilicate at noon, Drisdol 50,000 units once a week, Culturell 1 cap daily, Crestor 20 mg at bedtime, B12 vitamin, Mag. Other medications include aspirin 81 mg daily. He told the nurse he was taking a probiotic, glucosamine. PAST MEDICAL HISTORY: Includes coronary artery disease and non-ST elevation [place], multivessel disease, 100% RCA. Anemia of chronic kidney disease stage 4, essential hypertension, chronic kidney disease stage 4, diabetic neuropathy and neuropathy with type 2 diabetes, not requiring any medications. Fatty liver disease, gastritis with GERD, hypercalcemia of malignancy in the past, hyperlipidemia, hyperkalemia, mild aortic regurgitation, multiple myeloma, obesity, sleep apnea positional, recurrent UTIs, peripheral vascular disease, urethral stricture. SURGICAL HISTORY: Surgically, the patient had a previous bladder sphincter repair in 1972. Previous colonoscopy. SOCIAL HISTORY: The patient is . He is a retired professor. He lives at home with his . He has never smoked cigarettes, but it appears he smokes cigars on occasion. Does use alcohol on occasion. FAMILY HISTORY: Both parents are . His mother had heart disease and a CABG. REVIEW OF SYSTEMS: General: There has been no major weight changes. No high fevers, but low-grade fevers and some chills. HEENT: No sore throat. Respiratory: No cough. Cardiac: Stated in HPI. No palpitations. GI: Some of that epigastric pain ,but no other nausea or GI symptoms. : As stated in HPI. Otherwise, all systems are reviewed and found to be negative unless otherwise stated. LABORATORY DATA: Lab work did show the troponin elevated at 0.1. His white count was normal at 6.9, hemoglobin 10 which is about his baseline, platelets 157. Glucose 123, BUN 55, creatinine 3.31, recently was 3. Sodium 137, potassium 4.8, chloride 106, bicarb 19, calcium 10. GFR is around 18 in the clinic. EKG reviewed showed normal sinus rhythm, right bundle-branch block and an old anterior infarct which is same as previous EKG. He also had a chest x- ray in the ER which had not showed any acute findings. ASSESSMENT AND PLAN: 1. Complicated urinary tract infection in a patient who does straight catheterizations. 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 At this point, given his history of ESBL, low-grade fevers, I feel he is kind of tired. Fatigue might be contributing somewhat. He is at risk for worsening infection. We will give him some meropenem 0.[address]-elevation myocardial infarction. His chest pain was last night. He is completely asymptomatic right now. I will just put him on DVT prophylaxis doses of heparin and repeat a troponin to see the trend. We will also place him on telemetry. 3. Chronic systolic heart failure. He uses Lasix only p.r.n. I do not feel he is in any heart failure currently, but we will get a proBNP with his next lab work. 4. Chronic kidney disease stage 4 with hyperkalemia. We will continue his home medications. 5. Multiple myeloma. He will receive his weekly medication. I did not see any cause for concern for infections with it. 6. Type 2 diabetes. We will just do some Accu-Cheks and have him on a diabetic diet. 7. Gastroesophageal reflux disease. He is not currently taking any PPI. 8. Neuropathy. He is on Neurontin. 9. Benign prostatic hyperplasia. He is on Flomax. PLAN: The patient will be admitted for acute cares for IV antibiotics. We are awaiting his urine culture, which is already showing gram-negative rods, but the susceptibility should be out tomorrow. We will repeat lab work in the morning. Code level 1, DVT prophylaxis with heparin. MKA: 04/17/2019 21:55:44 MODL: 04/18/2019 01:56:42 /[id number]
--- NOTE | 2019-04-18 11:51 | PN ---
Progress Note for SUE SIMMS Date: 04/18/2019 Room #: VM.204 SUBJECTIVE: This is hospital day #2 for a 79-year-old admitted with a non-ST- elevation GA and a UTI. The patient states he believes the antibiotics are already helping. He is feeling better. He did spike a fever up to 100.9 last evening. He otherwise had no chest pain yesterday, but did have a little trying to get out of bed today. He is not coughing or wheezing. He has no abdominal pain. He has a good appetite. He had a few PVCs on telemetry. He normally takes magnesium at home, it was 1.6 yesterday. OBJECTIVE: Vital Signs: His temperature this morning 98.7, pulse 76, blood pressure 117/53, respiratory rate 16, O2 of 95 on room air. General: He is in no acute distress. Heart: Regular rate and rhythm. S1, S2 without murmur. Lungs: Sounds are clear to auscultation bilaterally without crackles or wheezes. Abdomen: Nondistended, nontender. Extremities: Warm and dry. No edema. Mental Status: Alert and orientated x3. LABORATORY DATA: Lab work does show his white count normal at 5.7, hemoglobin 9.8, platelets 135. Sodium 138, potassium 4.2, chloride 105, bicarb 19, BUN 52, creatinine 3, glucose 131. ProBNP mildly elevated at 1394. Repeat troponin normal now at 0.08, troponin max was 0.1. A urine culture is still showing gram- negative rods. ASSESSMENT: 1. Complicated urinary tract infection with gram-negative rods in a patient who has a history of stricture and does straight catheterizing. Improving now on day 2 IV meropenem. We will continue with the same. His culture results should be available later today. 2. [id number]-fcjileovd myocardial infarction with known coronary artery disease, but not felt to be a coronary artery bypass graft candidate. He had a little bit of angina this morning, but otherwise it has resolved. We will continue to monitor him on telemetry. 3. Chronic systolic heart failure. He has not been using any regular Lasix. I feel his proBNP is probably elevated due to his renal failure. His lungs sound clear. He had a chest x-ray prior to admission that looked okay. We will just continue to monitor. Likely he will be back on his regular Lasix on discharge or p.r.n., which he was doing. 4. Chronic kidney disease, stage 4. Creatinine is at baseline. 5. Multiple myeloma, on treatments. 6. Type 2 diabetes. His blood sugars have not been significantly elevated. 7. Gastroesophageal reflux disease. 8. Neuropathy. 9. BPH, on Flomax. Postvoid residuals were not done as he is already straight catheterizing. PLAN: At this point, the patient will continue acute cares with IV Merrem. We will give him some IV magnesium today. For DVT prophylaxis, he is on heparin. We will get him started on incentive spirometry. He does have nitroglycerin available to take if needed. Anticipate possible discharge home later today. MKA: 04/18/2019 10:55:22 MODL: 04/18/2019 11:43:21 /[id number]
[2019-04-18] MEDS ORDERED: SODIUM ZIRCONIUM CYCLOSILICATE 10 GM PO SCH (12:00)
[2019-04-18] MEDS ORDERED: Meropenem 1 GM in Sodium Chloride 0.9% 100 ML IV ONE (14:00)
[2019-04-18 14:04] VITALS: BP 140/63; PULSE 70
--- NOTE | 2019-04-18 16:44 | PCM.DCSUM1 ---
Discharge Summary - Hospital Course Free Text/Narrative:: Patient admitted from clinic with fever since 04/15 had UA positive on 04/16 clt returned ESBL which he has a history of. He was given IV Merrem. He is now afebrile and feeling better with less dysuria. He normally straight cath at home. He has had many UTi's is on treatment for myeloma which he did receive here. Also had Iv magesium did have PVC's on tele and a little angina this AM but no further significant chest pain and has a known hx of CAD but is not felt to be a candidate for CABG. Troponin initially mildly elevated repeat was 0.8. Lungs were clear and breathing was ok. BNP mildly elevated he had not been using his home lasix. Cr at baseline 3.0 on d/c. No fluids given here. - Discharge Data Discharge Date: 04/18/19 Discharge Disposition: Home, Self-Care 01 Condition: Good - Referral to Home Health Primary Care Physician: Anny Ribera, DO - Discharge Diagnosis/Problem(s) (1) Urinary tract infection due to ESBL Klebsiella SNOMED Code(s): 274528998730908 ICD Code: N39.0 - URINARY TRACT INFECTION, SITE NOT SPECIFIED; B96.89 - OTH BACTERIAL AGENTS THE CAUSE OF DISEASES CLASSD [id number] Status: Acute Priority: High Current Visit: Yes (2) NSTEMI (non-ST elevated myocardial infarction) SNOMED Code(s): 35539791 ICD Code: I21.4 - NON-ST ELEVATION (NSTEMI) MYOCARDIAL INFARCTION Status: Acute Priority: High Current Visit: Yes (3) Hypomagnesemia SNOMED Code(s): 574977262 ICD Code: E83.42 - HYPOMAGNESEMIA Status: Acute Priority: Medium Current Visit: Yes (4) Multiple myeloma SNOMED Code(s): 445940465 ICD Code: C90.00 - MULTIPLE MYELOMA NOT HAVING ACHIEVED REMISSION Status: Chronic Priority: Medium Current Visit: Yes Qualifiers: Multiple myeloma remission status: not in remission Qualified Code(s): C90.00 - Multiple myeloma not having achieved remission (5) CHF, Congestive heart failure SNOMED Code(s): 45216264 ICD Code: I50.9 - HEART FAILURE, UNSPECIFIED Status: Chronic Priority: Medium Current Visit: No (6) Diabetes mellitus type 2 SNOMED Code(s): 58290511 ICD Code: E11.9 - TYPE 2 DIABETES MELLITUS WITHOUT COMPLICATIONS Status: Chronic Priority: Medium Current Visit: No Problem Details: Plan to monitor glucose (7) Renal impairment SNOMED Code(s): 921722342 ICD Code: N28.9 - DISORDER OF KIDNEY AND URETER, UNSPECIFIED Status: Chronic Priority: Medium Current Visit: Yes (8) CAD (coronary artery disease) SNOMED Code(s): 44422160 ICD Code: I25.10 - ATHSCL HEART DISEASE OF [place] CORONARY ARTERY W/O ANG PCTRS Status: Chronic Priority: High Current Visit: Yes Qualifiers: Coronary Disease-Associated Artery/Lesion type: [place] artery [place] vs. transplanted heart: [place] heart Associated angina: with stable angina Qualified Code(s): I25.118 - Atherosclerotic heart disease of [place] coronary artery with other forms of angina pectoris (9) GERD (gastroesophageal reflux disease) SNOMED Code(s): 131807239 ICD Code: K21.9 - GASTRO-ESOPHAGEAL REFLUX DISEASE WITHOUT ESOPHAGITIS Status: Acute Priority: Medium Current Visit: No Qualifiers: Esophagitis presence: without esophagitis Qualified Code(s): K21.9 - Gastro -esophageal reflux disease without esophagitis - Patient Instructions Diet: Usual Diet as Tolerated Activity: As Tolerated Driving: May Drive Today Showering/Bathing: May Shower Notify Provider of: Fever, Increased Pain, Nausea and/or Vomiting - Discharge Plan Prescriptions/Med Rec: levoFLOXacin [Levaquin] 250 mg PO DAILY #12 tab Home Medications: Home Meds Betamethasone Dipropionate [Diprosone 0.05% Crm] 1 applic TOP DAILY PRN [History] Clotrimazole/Betamethasone Dip [Lotrisone Cream] 1 applic TOP BID PRN 09/20/18 [ History] Cyanocobalamin (Vitamin B-12) [Vitamin B-12] 1 tab PO DAILY 09/20/18 [History] Ergocalciferol (Vitamin D2) [Vitamin D2] 1 cap PO Q7D 09/20/18 [History] Glucosamine/D3/Boswellia Cris [Glucosamine Daily Complex Tab] 1 tab PO DAILY [History] Isosorbide Dinitrate 20 mg PO TID 09/20/18 [History] Magnesium Chloride [Mag-64] 64 mg PO QID 09/20/18 [History] Nitroglycerin 0.4 mg SL ASDIRECTED PRN 09/20/18 [History] Rosuvastatin Calcium 20 mg PO BEDTIME 09/20/18 [History] Tamsulosin [Flomax] 0.4 mg PO BEDTIME 09/20/18 [History] Vit B Cmplx NO3/Fa/C/Biot/Zinc [Nephplex Rx] 1 tab PO DAILY 09/20/18 [History] Furosemide [Lasix] 20 mg PO DAILY PRN 04/15/19 [History] Ixazomib Citrate [Ninlaro] 3 mg PO Q7D 04/15/19 [History] valACYclovir [Valtrex] 1 tab PO DAILY 04/15/19 [History] Aspirin 81 mg PO ASDIRECTED 04/17/19 [History] L.acidoph,Paracasei, B.lactis [Probiotic] 1 each PO ASDIRECTED 04/17/19 [History ] Sodium Zirconium Cyclosilicate [Lokelma] 10 gm PO ASDIRECTED 04/17/19 [History] Zaleplon [Sonata] 5 mg PO BEDTIME PRN 04/17/19 [History] Gabapentin [Neurontin] 200 mg PO BID #0 04/18/19 [Rx] levoFLOXacin [Levaquin] 250 mg PO DAILY #12 tab 04/18/19 [Rx] - Discharge Summary/Plan Comment DC Time >30 min.: Yes - General Info Date of Service: 04/18/19 Admission Dx/Problem (Free Text: see dictated note today for exam - Patient Data Vitals - Most Recent: Last Vital Signs Temp 98.5 F 04/18/19 14:00 Pulse 70 04/18/19 14:00 Resp 16 04/18/19 14:00 BP 140/63 04/18/19 14:00 Pulse Ox 98 04/18/19 14:00 Weight - Most Recent: 119.748 kg I&O - Last 24 hours: Intake & Output 04/18/19 04/18/19 04/18/19 06:59 14:59 22:59 Intake Total 320 Balance 320 Lab Results - Last 24 hrs: Laboratory Results - last 24 hr 04/17/19 04/17/19 04/18/19 Range/Units 16:35 19:25 06:40 WBC 5.7 (4.0-10.0) x10^3/uL RBC 3.09 L (4.5-6.0) x10^6/uL Hgb 9.8 L (14.0-18.0) g/dL Hct 30.5 L (40.0-52.0) % MCV 98.7 H (78.0-93.0) fL MCH 31.7 (26.0-32.0) pg MCHC 32.1 (32.0-36.0) g/dL RDW Coeff of Naz 14.9 (10.0-15.0) % Plt Count 135 (130-400) x10^3/uL Neut % (Auto) 72.8 (50.0-80.0) % Lymph % (Auto) 12.1 L (25.0-50.0) % [place] % (Auto) 12.8 H (2.0-11.0) % Eos % (Auto) 2.1 (0.0-4.0) % Baso % (Auto) 0.2 (0.2-1.2) % Sodium (136-145) mmol/L Potassium (3.5-5.1) mmol/L Chloride (98-107) mmol/L Carbon Dioxide (21-32) mmol/L Anion Gap (10-20) mmol/L BUN (7-18) mg/dL Creatinine (0.70-1.30) mg/dL Est Cr Clr Drug Dosing mL/min Estimated GFR (MDRD) Glucose (74-106) mg/dL POC Glucose 163 H 160 H (74-106) mg/dL Calcium (8.5-10.1) mg/dL NT-Pro-B Natriuret Pep (<=450) pg/mL 04/18/19 04/18/19 04/18/19 Range/Units 06:40 06:40 06:41 WBC (4.0-10.0) x10^3/uL RBC (4.5-6.0) x10^6/uL Hgb (14.0-18.0) g/dL Hct (40.0-52.0) % MCV (78.0-93.0) fL MCH (26.0-32.0) pg MCHC (32.0-36.0) g/dL RDW Coeff of Naz (10.0-15.0) % Plt Count (130-400) x10^3/uL Neut % (Auto) (50.0-80.0) % Lymph % (Auto) (25.0-50.0) % [place] % (Auto) (2.0-11.0) % Eos % (Auto) (0.0-4.0) % Baso % (Auto) (0.2-1.2) % Sodium 138 (136-145) mmol/L Potassium 4.2 (3.5-5.1) mmol/L Chloride 105 (98-107) mmol/L Carbon Dioxide 19 L (21-32) mmol/L Anion Gap 18.2 (10-20) mmol/L BUN 52 H (7-18) mg/dL Creatinine 3.0 H (0.70-1.30) mg/dL Est Cr Clr Drug Dosing 19.28 mL/min Estimated GFR (MDRD) 20 Glucose 131 H (74-106) mg/dL POC Glucose 119 H (74-106) mg/dL Calcium 9.1 (8.5-10.1) mg/dL NT-Pro-B Natriuret Pep 1394 H (<=450) pg/mL 04/18/19 Range/Units 11:06 WBC (4.0-10.0) x10^3/uL RBC (4.5-6.0) x10^6/uL Hgb (14.0-18.0) g/dL Hct (40.0-52.0) % MCV (78.0-93.0) fL MCH (26.0-32.0) pg MCHC (32.0-36.0) g/dL RDW Coeff of Naz (10.0-15.0) % Plt Count (130-400) x10^3/uL Neut % (Auto) (50.0-80.0) % Lymph % (Auto) (25.0-50.0) % [place] % (Auto) (2.0-11.0) % Eos % (Auto) (0.0-4.0) % Baso % (Auto) (0.2-1.2) % Sodium (136-145) mmol/L Potassium (3.5-5.1) mmol/L Chloride (98-107) mmol/L Carbon Dioxide (21-32) mmol/L Anion Gap (10-20) mmol/L BUN (7-18) mg/dL Creatinine (0.70-1.30) mg/dL Est Cr Clr Drug Dosing mL/min Estimated GFR (MDRD) Glucose (74-106) mg/dL POC Glucose 155 H (74-106) mg/dL Calcium (8.5-10.1) mg/dL NT-Pro-B Natriuret Pep (<=450) pg/mL Med Orders - Current: Current Medications Aspirin (Aspirin) 81 mg PO WITHDINNER [facility] Last Admin: 04/17/19 18:04 Dose: 81 mg Atorvastatin Calcium (Lipitor) 80 mg PO BEDTIME [facility] Last Admin: 04/17/19 19:27 Dose: 80 mg Ergocalciferol (Vitamin D2) 1.25 mg PO Q7D [facility] Last Admin: 04/17/19 18:06 Dose: Not Given Gabapentin (Neurontin) 200 mg PO BID [facility] Last Admin: 04/18/19 07:43 Dose: 200 mg Heparin Sodium (Porcine) (Heparin Sodium) 5,000 units SUBCUT Q8H [facility] Last Admin: 04/18/19 15:22 Dose: 5,000 units Isosorbide Dinitrate (Isordil) 20 mg PO TID [facility] Last Admin: 04/18/19 11:16 Dose: 20 mg Lactobacillus Rhamnosus (Culturelle) 1 cap PO DAILY [facility] Last Admin: 04/18/19 07:44 Dose: 1 cap Magnesium Chloride (Mag-64) 64 mg PO QID [facility] Last Admin: 04/18/19 15:22 Dose: 64 mg Nitroglycerin (Nitrostat) 0.4 mg SL ASDIRECTED PRN PRN Reason: Chest Pain Ixazomib Citrate [ Ninlaro] 3 Mg # Patient's Own Med# 3 mg PO Q7D [facility] Last Admin: 04/17/19 17:30 Dose: 3 mg Zaleplon 5 Mg # (Patient's Own Med#) 5 mg PO BEDTIME PRN PRN Reason: Insomnia Last Admin: 04/17/19 21:07 Dose: 5 mg Sodium Zirconium Cyclosilicate [ Lokelma] 10 Gm # Patient Own Med# 10 gm PO DAILY@1200 [facility] Last Admin: 04/18/19 11:16 Dose: 10 gm Sodium Chloride (Saline Flush) 10 ml FLUSH ASDIRECTED PRN PRN Reason: Keep Vein Open Last Admin: 04/18/19 06:28 Dose: 10 ml Tamsulosin HCl (Flomax) 0.4 mg PO BEDTIME [facility] Last Admin: 04/17/19 19:27 Dose: 0.4 mg Valacyclovir HCl (Valtrex) 500 mg PO DAILY [facility] Last Admin: 04/18/19 07:44 Dose: 500 mg Vitamin B Complex (Balanced B-50) 1 each PO DAILY [facility] Last Admin: 04/18/19 07:44 Dose: 1 each Discontinued Medications Gabapentin (Neurontin) 200 mg PO TID [facility] Magnesium Sulfate 2 gm/ Premix 50 mls @ 25 mls/hr IV ONETIME ONE Stop: 04/18/19 11:11 Last Admin: 04/18/19 09:30 Dose: 25 mls/hr Meropenem 1 gm/ Sodium (Chloride) 100 mls @ 50 mls/hr IV ONETIME ONE Stop: 04/18/19 15:59 Last Admin: 04/18/19 14:01 Dose: 50 mls/hr Meropenem (Merrem) 0.5 gm IVPUSH Q12H [facility] Last Admin: 04/18/19 06:27 Dose: 0.5 gm Sodium Zirconium Cyclosilicate [ Lokelma] 10 Gm # Patient Own Med# 10 gm PO WITHDINNER [facility] Last Admin: 04/17/19 18:14 Dose: Not Given
== END 2019-04-18 17:00 | disposition home or self-care (01) | DRG 689 ==
LOC: VM.MS 15:20
PROVIDERS: ADMIT Internal Medicine; ATTEND Internal Medicine
DX: N39.0 Urinary tract infection, site not specified (principal); I21.4 Non-ST elevation (NSTEMI) myocardial infarction; I50.22 Chronic systolic (congestive) heart failure; N18.4 Chronic kidney disease, stage 4 (severe); C90.00 Multiple myeloma not having achieved remission; Z68.41 Body mass index [BMI] 40.0-44.9, adult; E87.5 Hyperkalemia; K21.9 Gastro-esophageal reflux disease without esophagitis; N40.0 Benign prostatic hyperplasia without lower urinary tract symptoms; E11.22 Type 2 diabetes mellitus with diabetic chronic kidney disease; B96.1 Klebsiella pneumoniae [K. pneumoniae] as the cause of diseases classified elsewhere; I25.10 Atherosclerotic heart disease of native coronary artery without angina pectoris; E83.42 Hypomagnesemia; I25.118 Atherosclerotic heart disease of native coronary artery with other forms of angina pectoris; D63.1 Anemia in chronic kidney disease; E66.9 Obesity, unspecified; Z79.899 Other long term (current) drug therapy; Z91.013 Allergy to seafood; Z91.041 Radiographic dye allergy status
CPT/HCPCS: 36415; 80048; 82962; 83880; 84484; 85025; A9270-GY; J1644; J2185; J3475; J7050

== ENCOUNTER 2020-04-24 15:48 | Emergency (ER) | payer MEDICARE, OTHER ==
[2020-04-24] MEDS ORDERED: Sodium Chloride 0.9% 10 ML Syringe FLUSH PRN (15:50)
--- NOTE | 2020-04-24 15:53 | EDM.PDOC ---
ED HPI GENERAL MEDICAL PROBLEM - General Stated Complaint: ER Time Seen by Provider: 04/24/20 15:50 Source of Information: Reports: Patient History Limitations: Reports: No Limitations - History of Present Illness INITIAL COMMENTS - FREE TEXT/NARRATIVE: Patient comes to the emergency department today from the cardiac rehab center for evaluation of chest tightness. This patient had a double bypass earlier this fall in February. He has been going to cardiac rehab twice a week. For about the past 3 weeks on his biweekly cardiac rehab session during his physical exertion walking on the treadmill he developed a bandlike chest pressure that is constant around his chest. This typically happens at about 12 to 13 minutes and once he discontinues his physical exercise this resolves. Today when he was ambulating on the treadmill he developed this very similar chest tightness band sensation around his chest at approximately 5 minutes which is not typical for him. He continued to ambulate for the next 2 minutes or so and his pain continued. He sat down and his pain resolved about 5 minutes later for a total of just under 10 minutes of bandlike chest pain. He had no diaphoresis shortness of breath nausea or vomiting. No weakness dizziness lightheadedness. He was brought to the emergency department for further evaluation. Upon arrival the patient is asymptomatic. He has no chest pain chest pressure shortness of breath diaphoresis nausea vomiting. No weakness dizziness lightheadedness. No palpitations. He has felt well over the past couple of days. He has had no acute complaints. No fever no chills. No cough or congestion. No abdominal pain nausea or vomiting. No hematuria dysuria or urinary frequency. No black or tarry stools. No COVID symptoms no COVID exposure. - Related Data Allergies Allergy/AdvReac Type Severity Reaction Status Date / Time Iodinated Contrast Media Allergy Severe Anaphylactic Verified 04/24/20 16:04 Shock shellfish derived Allergy Severe Anaphylactic Verified 04/24/20 16:04 Shock iodine Allergy Unknown Cannot Verified 04/24/20 16:04 Remember Gvungew-Xam-Vcs Reductase AdvReac Intermediate Liver Verified 04/24/20 16:04 Inhibitor Problems Home Meds: Home Meds Betamethasone Dipropionate [Diprosone 0.05% Crm] 1 applic TOP DAILY PRN 09/20/18 [History] Clotrimazole/Betamethasone Dip [Lotrisone Cream] 1 applic TOP DAILY PRN 09/20/18 [History] Ergocalciferol (Vitamin D2) [Vitamin D2] 1 cap PO Q7D 09/20/18 [History] Glucosamine/D3/Boswellia Cris [Glucosamine Daily Complex Tab] 1 tab PO DAILY 09/20/18 [History] Nitroglycerin 0.4 mg SL ASDIRECTED PRN 09/20/18 [History] Tamsulosin [Flomax] 0.4 mg PO BEDTIME 09/20/18 [History] Vit B Cmplx NO3/Fa/C/Biot/Zinc [Nephplex Rx] 1 tab PO ASDIRECTED 09/20/18 [History] Furosemide [Lasix] 20 mg PO DAILY PRN 04/15/19 [History] Ixazomib Citrate [Ninlaro] 2.3 mg PO Q7D 04/15/19 [History] valACYclovir [Valtrex] 1 tab PO DAILY 04/15/19 [History] Aspirin 81 mg PO ASDIRECTED 04/17/19 [History] Sodium Zirconium Cyclosilicate [Lokelma] 10 gm PO ASDIRECTED 04/17/19 [History] Zaleplon [Sonata] 5 mg PO BEDTIME PRN 04/17/19 [History] Ezetimibe 10 mg PO DAILY 01/10/20 [History] Fenofibrate Nanocrystallized [Fenofibrate] 48 mg PO DAILY 01/10/20 [History] Ferrous Sulfate 325 mg PO DAILY 01/10/20 [History] Gabapentin [Neurontin] 200 mg PO TID 01/10/20 [History] Hydrocodone/Acetaminophen [Hydrocodone-Acetamin 5-325 mg] 1 tab PO Q4H PRN 01/10/20 [History] Metoprolol Succinate 50 mg PO DAILY 01/10/20 [History] allopurinoL [Zyloprim] 100 mg PO DAILY 01/10/20 [History] amLODIPine Besylate [Amlodipine Besylate] 5 mg PO DAILY 01/10/20 [History] Past Medical History Cardiovascular History: Reports: CAD Gastrointestinal History: Reports: GERD Genitourinary History: Reports: Renal Disease Other Genitourinary History: Stage 2 Endocrine/Metabolic History: Reports: Diabetes, Type II Oncologic (Cancer) History: Reports: Other (See Below) Other Oncologic History: multiple myeloma Social & Family History - Caffeine Use Caffeine Use: Reports: Coffee, Soda - Living Situation & Occupation Living situation: Reports: , with Spouse ED ROS GENERAL - Review of Systems Review Of Systems: Comprehensive ROS is negative, except as noted in HPI. ED EXAM, GENERAL - Physical Exam Exam: See Below Exam Limited By: No Limitations General Appearance: Alert, WD/WN, No Apparent Distress Ears: Normal External Exam Nose: Normal Inspection Throat/Mouth: Normal Inspection Neck: Normal Inspection Respiratory/Chest: No Respiratory Distress, Lungs Clear Cardiovascular: Normal Peripheral Pulses, Regular Rate, Rhythm, No Edema, No Murmur Peripheral Pulses: 2+: Radial (L), Radial (R), Posterior Tibial (L), Posterior Tibial (R), Dorsalis Pedis (L), Dorsalis Pedis (R) GI/Abdominal: Normal Bowel Sounds, Soft, Non-Tender, Pelvis Stable (Male) Exam: Deferred Rectal (Males) Exam: Deferred Back Exam: Normal Inspection, Full Range of Motion Extremities: Normal Inspection, Normal Range of Motion, Pedal Edema (trace bilateral edema) Neurological: Alert, Oriented, Normal Cognition, No Motor/Sensory Deficits, [place]/Motor Deficit Psychiatric: Normal Affect Skin Exam: Warm, Dry, Intact, Normal Color, No Rash #1 Interpretation EKG Date: 04/24/20 Time: 15:41 Rhythm: NSR Rate (Beats/Min): 81 [place]: Normal P-Wave: Present QRS: RBBB ST-T: Normal QT: Normal Comparison: No Change Course - Vital Signs Last Recorded V/S: Last Vital Signs Temp 98.7 F 04/24/20 15:48 Pulse 80 04/24/20 17:52 Resp 14 04/24/20 17:52 BP 148/72 H 04/24/20 17:52 Pulse Ox 96 04/24/20 17:52 - Orders/Labs/Meds Orders: Active Orders 24 hr Category Date Time Status EKG 12 Lead [EKG Documentation Completion] [RC] URGENT Care 04/24/20 15:50 Active Sodium Chloride 0.9% [Saline Flush] Med 04/24/20 15:50 Active 10 ml FLUSH ASDIRECTED PRN Peripheral IV Insertion Adult [OM.PC] Stat Oth 04/24/20 15:50 Ordered Medication Orders Sodium Chloride (Saline Flush) 10 ml FLUSH ASDIRECTED PRN PRN Reason: Keep Vein Open Labs: Laboratory Tests 04/24/20 04/24/20 04/24/20 Range/Units 16:13 16:13 16:13 WBC 5.6 (4.0-10.0) x10^3/uL RBC 2.98 L (4.5-6.0) x10^6/uL Hgb 9.7 L (14.0-18.0) g/dL Hct 30.4 L (40.0-52.0) % MCV 102.0 H D (78.0-93.0) fL MCH 32.6 H (26.0-32.0) pg MCHC 31.9 L (32.0-36.0) g/dL RDW Coeff of Naz 15.3 H (10.0-15.0) % Plt Count 157 (130-400) x10^3/uL Neut % (Auto) 73.4 (50.0-80.0) % Lymph % (Auto) 13.2 L (25.0-50.0) % [place] % (Auto) 11.3 H (2.0-11.0) % Eos % (Auto) 1.6 (0.0-4.0) % Baso % (Auto) 0.5 (0.2-1.2) % PT 10.1 (9.5-12.3) SEC INR 0.9 L (2.0-3.5) APTT 26.7 (25.6-32.8) SEC Sodium 137 (136-145) mmol/L Potassium 4.5 (3.5-5.1) mmol/L Chloride 104 (98-107) mmol/L Carbon Dioxide 22 (21-32) mmol/L Anion Gap 15.5 (10-20) mmol/L BUN 44 H (7-18) mg/dL Creatinine 3.4 H* (0.70-1.30) mg/dL Est Cr Clr Drug Dosing TNP Estimated GFR (MDRD) 18 Glucose 107 H (74-106) mg/dL Calcium 9.2 (8.5-10.1) mg/dL Corrected Calcium 10.00 (8.5-10.1) mg/dL Total Bilirubin 0.2 (0.2-1.0) mg/dL AST 17 (15-37) U/L ALT 22 (16-63) U/L Alkaline Phosphatase 86 (46-116) U/L Troponin I 0.024 (<=0.056) ng/mL Total Protein 7.3 (6.4-8.2) g/dL Albumin 3.0 L (3.4-5.0) g/dL Globulin 4.3 Albumin/Globulin Ratio 0.70 12/16/20 Range/Units 19:51 WBC (4.0-10.0) x10^3/uL RBC (4.5-6.0) x10^6/uL Hgb (14.0-18.0) g/dL Hct (40.0-52.0) % MCV (78.0-93.0) fL MCH (26.0-32.0) pg MCHC (32.0-36.0) g/dL RDW Coeff of Naz (10.0-15.0) % Plt Count (130-400) x10^3/uL Neut % (Auto) (50.0-80.0) % Lymph % (Auto) (25.0-50.0) % [place] % (Auto) (2.0-11.0) % Eos % (Auto) (0.0-4.0) % Baso % (Auto) (0.2-1.2) % PT (9.5-12.3) SEC INR (2.0-3.5) APTT (25.6-32.8) SEC Sodium (136-145) mmol/L Potassium (3.5-5.1) mmol/L Chloride (98-107) mmol/L Carbon Dioxide (21-32) mmol/L Anion Gap (10-20) mmol/L BUN (7-18) mg/dL Creatinine (0.70-1.30) mg/dL Est Cr Clr Drug Dosing Estimated GFR (MDRD) Glucose (74-106) mg/dL Calcium (8.5-10.1) mg/dL Corrected Calcium (8.5-10.1) mg/dL Total Bilirubin (0.2-1.0) mg/dL AST (15-37) U/L ALT (16-63) U/L Alkaline Phosphatase (46-116) U/L Troponin I 0.029 (<=0.056) ng/mL Total Protein (6.4-8.2) g/dL Albumin (3.4-5.0) g/dL Globulin Albumin/Globulin Ratio Meds: Medications Generic Name Dose Route Start Last Admin Trade Name Freq PRN Reason Stop Dose Admin Sodium Chloride 10 ml 04/24/20 15:50 Saline Flush FLUSH ASDIRECTED PRN Keep Vein Open Discontinued Medications Generic Name Dose Route Start Last Admin Trade Name Freq PRN Reason Stop Dose Admin Aspirin 324 mg 04/24/20 15:53 04/24/20 15:54 Aspirin PO 04/24/20 15:54 324 mg ONETIME ONE Administration - Re-Assessments/Exams Free Text/Narrative Re-Assessment/Exam: 04/24/20 16:26 The patient has no pain on arrival. EKG unchanged from previous in early 2018. No ST elevation or depression when reviewed extemporaneously by myself. 324 oral chewable aspirin given to the patient. 04/24/20 20:35 His initial troponin was within the normal range is 0.024. He does have some chronic renal failure with a creatinine of 3.5. Although this is about his baseline for his creatinine. As he presented shortly after his chest pain although this has resolved in about 10 minutes after the development of it we should repeat his troponin. He rested in the emergency department over the next 4 hours. He had no re currence of chest pain or shortness of breath or no other symptoms. We repeated his troponin it was 0.029 which is not elevating. He has not had any continued chest pain. This is the presentation of stable angina. Although this is still somewhat concerning as he has had an abrupt change in the amount of physical exercise that he is able to tolerate a cardiac rehab. He was able to go about 15 to 20 minutes previously but now he is only at about 7 minutes. We will have him go home and rest tonight and contact his primary care provider tomorrow for consideration of further evaluation and possible stress test or further intervention. He is comfortable with this plan his questions are answered. Departure - Departure Time of Disposition: 20:22 Disposition: Home, Self-Care 01 Clinical Impression: Stable angina CRF (chronic renal failure) Qualifiers: Chronic kidney disease stage: unspecified stage Qualified Code(s): N18.9 - Chronic kidney disease, unspecified Instructions: Angina, [id number] Additional Instructions: Continue with your cardiac rehab. Medications as before. Contact your PCP tomorrow by phone to discuss your continued symptoms of stable angina. Use your nitro as previously for chest pain that does not resolve after discontinuation of physical exertion. Return to the ED if pain not resolved with nitro or discontinuation of the physical exertion. Follow up by phone tomorrow with your PCP with the continued concerns. Sepsis Event Note (ED) - Focused Exam Vital Signs: Vital Signs Temp Pulse Resp BP Pulse Ox 04/24/20 17:52 80 14 148/72 H 96 04/24/20 15:48 98.7 F 76 18 153/70 H 96 - My Orders Last 24 Hours: My Active Orders 04/24/20 15:50 EKG 12 Lead [EKG Documentation Completion] [RC] URGENT Sodium Chloride 0.9% [Saline Flush] 10 ml FLUSH ASDIRECTED PRN Peripheral IV Insertion Adult [OM.PC] Stat - Assessment/Plan Last 24 Hours: My Active Orders 04/24/20 15:50 EKG 12 Lead [EKG Documentation Completion] [RC] URGENT Sodium Chloride 0.9% [Saline Flush] 10 ml FLUSH ASDIRECTED PRN Peripheral IV Insertion Adult [OM.PC] Stat
[2020-04-24] MEDS: Aspirin 81 MG Tab.Chew PO ONE (15:54)
--- NOTE | 2020-04-24 16:29 | CR ---
[id number] RAD/RAD Chest PA And Lateral EXAM: FRONTAL AND LATERAL CHEST INDICATION: CHEST PAIN. COMPARISON: April 15, 2019. DISCUSSION: Mild scarring or atelectasis in the left lung base. Soft tissue attenuation limits assessment, but no infiltrates are identified. Borderline heart size without evidence of congestive heart failure. Sternotomy. No effusions are detected, but the posterior costophrenic angles are excluded from the [id number] of the lateral view. IMPRESSION: 1. Mild left base subsegmental atelectasis or scarring. No definite acute infiltrates. Miguel Guevara MD 04/24/20 [id number] Thank you for allowing us to participate in the care of your patient.
[2020-04-24 16:41] LABS: CHLORIDE,CL 104 mmol/L (98-107); PTT,PARTIAL THROMBOPLSTIN TIME 26.7 SEC (25.6-32.8); SODIUM,NA 137 mmol/L (136-145)
[2020-04-24 16:43] LABS: ANION GAP 15.5 mmol/L (10-20)
[2020-04-24 17:53] VITALS: BP 148/72; PULSE 80
== END 2020-04-24 20:40 | disposition home or self-care (01) ==
LOC: VM.ED 15:48
DX: I20.8 Other forms of angina pectoris (principal); E11.22 Type 2 diabetes mellitus with diabetic chronic kidney disease; N18.9 Chronic kidney disease, unspecified; I25.10 Atherosclerotic heart disease of native coronary artery without angina pectoris; Z91.041 Radiographic dye allergy status; Z91.013 Allergy to seafood; Z91.048 Other nonmedicinal substance allergy status; Z79.82 Long term (current) use of aspirin; Z79.899 Other long term (current) drug therapy
CPT/HCPCS: 36415; 71046; 80053; 84484; 85025; 85610; 85730; 93005; 93010; 99284; 99285-25; A9270-GY

== ENCOUNTER 2020-08-25 01:02 | Inpatient (IN) | payer MEDICARE, OTHER ==
[2020-08-25 02:17] LABS: CHLORIDE,CL 101 mmol/L (98-107); SODIUM,NA 135 mmol/L (136-145)
[2020-08-25 02:18] LABS: ANION GAP 11.4 mmol/L (5-15)
[2020-08-25] MEDS ORDERED: Zolpidem 5 MG Tab PO PRN (03:29)
--- NOTE | 2020-08-25 03:29 | EDM.PDOC ---
ED HPI GENERAL MEDICAL PROBLEM - General Chief Complaint: Genitourinary Problem Stated Complaint: Swelling scrotum/testicles, difficulty self cath Time Seen by Provider: 08/25/20 01:10 Source of Information: Reports: Patient History Limitations: Reports: No Limitations - History of Present Illness INITIAL COMMENTS - FREE TEXT/NARRATIVE: Pt. presents to ER with complaints of scrotum swelling, foreskin edema, and difficulty with self catheterization. Pt. has been self cathing for years due to urethral stricture. Pt. is currently being treated for orchitis with Levaquin. He also has a urinary tract infection. His urine cultures grew resistant e coli and ESBL klebsiella, but resistant to levaquin. Pt. states that he is unable to perform self catheterization due to swelling of the genitalia/foreskin. Denies any fever or chills. No abdominal pain. Denies any chest pain or shortness of breath. Denies any flank pain. Pt. states that he has not been diaphoretic. Onset: Today Location: Reports: Pelvis scrotum/testicles Pain Score (Numeric/FACES): 5 - Related Data Allergies Allergy/AdvReac Type Severity Reaction Status Date / Time Iodinated Contrast Media Allergy Severe Anaphylactic Verified 08/25/20 03:11 Shock shellfish derived Allergy Severe Anaphylactic Verified 08/25/20 03:11 Shock iodine Allergy Unknown Cannot Verified 08/25/20 03:11 Remember Mjqrrzh-Wdh-Mta Reductase AdvReac Intermediate Liver Verified 08/25/20 03:11 Inhibitor Problems Home Meds: Home Meds Betamethasone Dipropionate [Diprosone 0.05% Crm] 1 applic TOP DAILY PRN 09/20/18 [History] Ergocalciferol (Vitamin D2) [Vitamin D2] 50,000 units PO Q7D 09/20/18 [History] Glucosamine/D3/Boswellia Cris [Glucosamine Daily Complex Tab] 1 tab PO DAILY 09/20/18 [History] Nitroglycerin 0.4 mg SL ASDIRECTED PRN 09/20/18 [History] Tamsulosin [Flomax] 0.4 mg PO BEDTIME 09/20/18 [History] Vit B Cmplx NO3/Fa/C/Biot/Zinc [Nephplex Rx] 1 tab PO ASDIRECTED 09/20/18 [History] Furosemide [Lasix] 20 mg PO DAILY PRN 04/15/19 [History] Ixazomib Citrate [Ninlaro] 2.3 mg PO Q7D 04/15/19 [History] valACYclovir [Valtrex] 1 tab PO DAILY 04/15/19 [History] Aspirin 81 mg PO ASDIRECTED 04/17/19 [History] Zaleplon [Sonata] 5 mg PO BEDTIME PRN 04/17/19 [History] Ezetimibe 10 mg PO DAILY 01/10/20 [History] Fenofibrate Nanocrystallized [Fenofibrate] 48 mg PO DAILY 01/10/20 [History] Ferrous Sulfate 325 mg PO DAILY 01/10/20 [History] Gabapentin [Neurontin] 200 mg PO TID 01/10/20 [History] Metoprolol Succinate 12.5 mg PO DAILY 01/10/20 [History] allopurinoL [Zyloprim] 100 mg PO DAILY 01/10/20 [History] Ascorbic Acid [Vitamin C] 500 mg PO DAILY 06/11/20 [History] Calcium Carbonate/Vitamin D3 [Calcium 600-Vit D3 800 Caplet] 1 each PO DAILY 06/11/20 [History] Cyanocobalamin (Vitamin B-12) [B-12] 1,000 mcg PO MOWEFR 06/11/20 [History] D-Mannose 1,500 mg PO DAILY 06/11/20 [History] Sodium Zirconium Cyclosilicate [Lokelma] 10 gm PO 1200 06/11/20 [History] Ubidecarenone [Coq-10] 100 mg PO DAILY 06/11/20 [History] Vitamin E 400 unit PO DAILY 06/11/20 [History] Zinc 50 mg PO DAILY 06/11/20 [History] hydrALAZINE [Apresoline] 12.5 mg PO Q12HR 06/11/20 [History] Past Medical History HEENT History: Reports: Cataract Cardiovascular History: Reports: Angina, CAD, Cardiomyopathy, Heart Failure, High Cholesterol, Hypertension, MO, PVD, Other (See Below) Other Cardiovascular History: aortic regurgitation, abnormal stress test, orthostatic hypotension Respiratory History: Reports: Sleep Apnea Gastrointestinal History: Reports: Fatty Liver, Gastritis, GERD Genitourinary History: Reports: Renal Disease, UTI, Recurrent, Other (See Below) Other Genitourinary History: Stage 2, ED, urethral stricture, acute kidney injury, dysuria Neurological History: Reports: Neuropathy, Diabetic, Neuropathy, Peripheral Endocrine/Metabolic History: Reports: Diabetes, Type II, Hypomagnesemia, Obesity/BMI 30+, Other (See Below) Other Endocrine/Metabolic History: hyperkalemia, gout, hypercalcemia Hematologic History: Reports: Anemia Immunologic History: Reports: Other (See Below) Other Immunologic History: monoclonal paraproteinemia, MGUS, chemotherapy induced neutropenia Oncologic (Cancer) History: Reports: Other (See Below) Other Oncologic History: multiple myeloma - Infectious Disease History Infectious Disease History: Reports: Shingles - Past Surgical History Cardiovascular Surgical History: Reports: Coronary Artery Bypass GI Surgical History: Reports: Colonoscopy Male Surgical History: Reports: Other (See Below) Other Male Surgeries/Procedures: bladder sphincter repair 1972 Social & Family History - Tobacco Use Tobacco Use Status *Q: Unknown Ever Used Tobacco - Caffeine Use Caffeine Use: Reports: Coffee, Soda - Living Situation & Occupation Living situation: Reports: , with Spouse ED ROS GENERAL - Review of Systems Review Of Systems: See Below Constitutional: Reports: No Symptoms. Denies: Fever, Chills, Malaise, Weakness, Fatigue, Diaphoresis HEENT: Reports: No Symptoms Respiratory: Reports: No Symptoms Cardiovascular: Reports: No Symptoms Endocrine: Reports: No Symptoms GI/Abdominal: Reports: No Symptoms : Reports: Other (see hpi) Musculoskeletal: Reports: No Symptoms Skin: Reports: No Symptoms Neurological: Reports: No Symptoms Psychiatric: Reports: No Symptoms Hematologic/Lymphatic: Reports: No Symptoms Immunologic: Reports: No Symptoms ED EXAM, GENERAL - Physical Exam Exam: See Below Exam Limited By: No Limitations General Appearance: Alert, WD/WN, No Apparent Distress Respiratory/Chest: No Respiratory Distress, Lungs Clear, Normal Breath Sounds, No Accessory Muscle Use, Chest Non-Tender Cardiovascular: Normal Peripheral Pulses, Regular Rate, Rhythm, No Edema, No Gallop, No JVD, No Murmur, No Rub Peripheral Pulses: 4+: Radial (L) GI/Abdominal: Soft, Non-Tender, No Organomegaly, No Distention, No Mass (Male) Exam: Scrotal Swelling, Scrotum Tenderness (L), Scrotum Tenderness (R), Testicular Tenderness (L), Testicular Tenderness (R) Rectal (Males) Exam: Deferred Back Exam: Normal Inspection, Full Range of Motion Extremities: Normal Inspection, Normal Range of Motion Neurological: Alert, Oriented, CN II-XII Intact, Normal Cognition, Normal Gait, Normal Reflexes, No Motor/Sensory Deficits Psychiatric: Normal Affect, Normal Mood Skin Exam: Warm, Dry, Intact, No Rash, Pallor Course - Vital Signs Last Recorded V/S: Last Vital Signs Temp 37.4 C 08/25/20 01:02 Pulse 79 08/25/20 01:02 Resp 16 08/25/20 01:02 BP 139/49 L 08/25/20 01:02 Pulse Ox 97 08/25/20 01:02 - Orders/Labs/Meds Orders: Active Orders 24 hr Category Date Time Status Patient Status [ADT] Routine ADT 08/25/20 02:46 Active Bladder Scan [RC] ASDIRECTED Care 08/25/20 01:19 Active CORONAVIRUS COVID-19 ESEQUIEL [MOLEC] Stat Lab 08/25/20 03:00 Received LACTATE SEPSIS W/ REFLEX [CHEM] Stat Lab 08/25/20 01:40 Received Medication Orders Meropenem 500 mg/ Sodium (Chloride) 100 mls @ 33 mls/hr IV Q12H ERNA Labs: Laboratory Tests 08/25/20 08/25/20 08/25/20 Range/Units 01:40 01:40 01:40 WBC 11.3 H (4.0-10.0) x10^3/uL RBC 2.62 L (4.5-6.0) x10^6/uL Hgb 9.8 L (14.0-18.0) g/dL Hct 28.7 L (40.0-52.0) % MCV 109.5 H D (78.0-93.0) fL MCH 37.4 H (26.0-32.0) pg MCHC 34.1 (32.0-36.0) g/dL RDW Coeff of Naz 12.3 (10.0-15.0) % Plt Count 149 (130-400) x10^3/uL Neut % (Auto) 81.1 H (50.0-80.0) % Lymph % (Auto) 6.4 L (25.0-50.0) % Grady % (Auto) 12.0 H (2.0-11.0) % Eos % (Auto) 0.3 (0.0-4.0) % Baso % (Auto) 0.2 (0.2-1.2) % Sodium 135 L (136-145) mmol/L Potassium 4.4 (3.5-5.1) mmol/L Chloride 101 (98-107) mmol/L Carbon Dioxide 27 (21-32) mmol/L Anion Gap 11.4 (5-15) mmol/L BUN 44 H (7-18) mg/dL Creatinine 3.6 H* (0.70-1.30) mg/dL Est Cr Clr Drug Dosing TNP Estimated GFR (MDRD) 16 Glucose 101 H (70-99) mg/dL Calcium 8.8 (8.5-10.1) mg/dL Corrected Calcium 9.68 (8.5-10.1) mg/dL Total Bilirubin 0.3 (0.2-1.0) mg/dL AST 20 (15-37) U/L ALT 19 (16-63) U/L Alkaline Phosphatase 74 (46-116) U/L C-Reactive Protein 6.5 H (<=0.9) mg/dL NT-Pro-B Natriuret Pep 6171 H (<=450) pg/mL Total Protein 7.2 (6.4-8.2) g/dL Albumin 2.9 L (3.4-5.0) g/dL Globulin 4.3 Albumin/Globulin Ratio 0.67 Meds: Medications Generic Name Dose Route Start Last Admin Trade Name Freq PRN Reason Stop Dose Admin Meropenem 500 mg/ Sodium 100 mls @ 33 mls/hr 08/25/20 03:30 Chloride IV Q12H [facility] [place] - Re-Assessments/Exams Free Text/Narrative Re-Assessment/Exam: 08/25/20 03:34 Coude catheter was placed with great difficulty. Once placed, excellent urine return was noted. Departure - Departure Time of Disposition: 03:33 Disposition: Refer to Observation Clinical Impression: Retention of urine, Orchitis, UTI due to extended-spectrum beta lactamase (ESBL) producing Escherichia coli - Discharge Information Sepsis Event Note (ED) - Evaluation Sepsis Screening Result: No Definite Risk - Focused Exam Vital Signs: Vital Signs Temp Pulse Resp BP Pulse Ox 08/25/20 01:02 37.4 C 79 16 139/49 L 97 - My Orders Last 24 Hours: My Active Orders 08/25/20 01:19 Bladder Scan [RC] ASDIRECTED 08/25/20 01:40 LACTATE SEPSIS W/ REFLEX [CHEM] Stat 08/25/20 02:46 Patient Status [ADT] Routine 08/25/20 03:00 CORONAVIRUS COVID-19 ESEQUIEL [MOLEC] Stat - Assessment/Plan Admission H&P: Please use this note as an admission H&P Last 24 Hours: My Active Orders 08/25/20 01:19 Bladder Scan [RC] ASDIRECTED 08/25/20 01:40 LACTATE SEPSIS W/ REFLEX [CHEM] Stat 08/25/20 02:46 Patient Status [ADT] Routine 08/25/20 03:00 CORONAVIRUS COVID-19 ESEQUIEL [MOLEC] Stat Plan: Pt. will be admitted observation. 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 He is a code 2, DNR/DNI. Diabetic diet. Vitals Q 4. Pt. will be started on meropenem. The Klebsiella growin in his urine is susce ptible to meropenem. ID will be contacted in the AM regarding his cultures. Lactic acid will be trended. Pt. wants Sonata for sleep which is not on our formulary. Pt. will be started on ambien.
[2020-08-25] MEDS: Meropenem 500 MG in Sodium Chloride 0.9% 100 ML IV SCH ×2 (04:07→15:10)
[2020-08-25] MEDS ORDERED: Nitroglycerin 0.4 MG Tab.SL SL PRN (09:43)
[2020-08-25] MEDS: Furosemide 20 MG Tab PO SCH (11:20)
[2020-08-25] MEDS: Metoprolol Succinate 25 MG Tab.ER PO SCH (11:20)
[2020-08-25] MEDS: Gabapentin 100 MG Cap PO SCH ×2 (11:20→20:55)
[2020-08-25] MEDS: Allopurinol 100 MG Tab PO SCH (11:21)
[2020-08-25 11:30] LABS: ANION GAP 13.1 mmol/L (5-15)
[2020-08-25] MEDS ORDERED: Heparin Sodium 5,000 Units/ML Vial SUBCUT SCH ×2 (12:00→20:00)
[2020-08-25] MEDS ORDERED: ISOSORBIDE DINITRATE 20 MG PO SCH (12:00)
[2020-08-25] MEDS ORDERED: SODIUM ZIRCONIUM CYCLOSILICATE PO SCH (12:00)
--- NOTE | 2020-08-25 12:50 | HP ---
CHIEF COMPLAINT: Trouble urinating. HISTORY OF PRESENT ILLNESS: This is a 80-year-old with well known history of urinary stricture, who self caths at home, who has been on antibiotics with Levaquin since the 08/12, which he has had in the past. He did undergo an ultrasound on the , which showed the fluid collection, but he was clinically improving, so recommendations were given to complete 3 weeks of antibiotics. In the meantime, his urine culture did come back with resistant bacteria. However, that is not new for him and he has required ertapenem in the past. He is not having any urine symptoms such as burning. He has the Klebsiella and Escherichia coli in his culture. He just said that his scrotum swelled up to the point where he could not pass urine and he had a 1000 of urine output after Mars was placed during the night. He was not having any fever. His white count was mildly elevated at 11.3, but lactic was normal. He is having some scrotal pain. Decision was made to keep him locally to consult with specialists in [place], who recommended continued antibiotics and a repeat ultrasound. ALLERGIES: Contrast media, shellfish, statins, iodine. MEDICATIONS: His medication list is quite extensive and does include allopurinol; aspirin; betamethasone; calcium and D; coenzyme Q10; D-mannose, Zetia 10 mg daily; fenofibrate 48 mg daily; Lasix 20 mg every day as needed for swelling; Neurontin 200 three times a day; hydralazine 12.5 b.i.d.; glucosamine chondroitin; isosorbide 20 mg 3 times a day; Levaquin 250 daily; Lokelma 10 g packet daily; metoprolol 25 mg daily; Ninlaro 2.3 capsule every 1 day per week per chemotherapy cycle, he is due again tomorrow; nitroglycerin as needed for chest pain; Flomax 0.4 daily; Valtrex 500 daily; vitamin C 500; vitamin D 50,000 units daily; vitamin E 400 daily; zolpidem 5 mg as needed for insomnia; he did get an Ambien this morning; zinc 50 mg daily. PAST MEDICAL HISTORY: Includes history of diabetes, but mostly in remission now after treatment for multiple myeloma and weight loss; congestive heart failure; chronic kidney disease with creatinine around 3 at baseline; multiple myeloma, longstanding, on treatment; recurrent UTIs with stricture requiring self- catheterization; GERD; coronary artery disease, status post CABG after a non-ST- elevation SC; history of orchitis back in 2016; obesity; iron-deficiency anemia; fatty liver; essential hypertension; gout; gastritis. PAST SURGICAL HISTORY: The patient has had bypass surgery, colonoscopies, bladder surgery. FAMILY HISTORY: His father had heart disease, kidney disease, and diabetes. Mother had heart disease. Both parents are . SOCIAL HISTORY: He does smoke some cigars and use occasional alcohol. He is . He is retired. REVIEW OF SYSTEMS: General: The patient has not had any fever or chills. He has not had any weight changes. HEENT: No trouble swallowing. Cardiac: No chest pain. No palpitations. Respiratory: No cough. No shortness of breath. GI: No nausea, vomiting, diarrhea. : He has had the scrotal swelling and pain, and trouble passing urine. Otherwise, all systems reviewed and found to be negative unless otherwise stated. PHYSICAL EXAMINATION: Vital Signs: This a.m., temp 99.1, pulse 75, blood pressure 122/45, respiratory rate 20, O2 96% on room air. General: He is in no acute distress. Heart: Regular rate and rhythm. S1, S2. He has a murmur. Lungs: Lung sounds are clear to auscultation bilaterally without crackles or wheezes. Abdomen: Positive bowel sounds. Soft, nondistended, nontender. Extremities: Warm and dry. No edema. : He does have a scrotum that is slightly red. Left scrotum is soft, no swelling. Right testicle is firm, hard, and tender. His penis is normal, not significantly swollen, with a catheter in place which is draining clear urine. Mental Status: He is alert, he is orientated x3. It should also be noted that he is not on any steroids. LABORATORY DATA: Lactic had been normal x2. White count this morning down to 10, hemoglobin 10, platelets 138. Sodium 135, potassium 4.1, chloride 102, bicarbonate 24, BUN 45, creatinine 3.5, improved slightly. Glucose 104. CRP up slightly to 7.8. COVID testing on admission negative. ASSESSMENT AND PLAN: 1. Orchitis with a small abscess by ultrasound. Discussed with Urology and Infectious Disease. Ultimately, he will need surgery. However, it is not emergent and we would like to have him medically optimized. Therefore, we will treat him with IV meropenem and repeat an ultrasound tomorrow. 2. Acute on chronic renal failure. He has had a slight bump in creatinine. This is presumably due to his retention. It is already coming down. He has not gotten any extra IV fluids. Given his history of heart failure, we will just monitor this. 3. Chronic combined systolic and diastolic heart failure. He is on p.r.n. Lasix. Given his edema in his scrotum, I will continue it daily. 4. Multiple myeloma, on treatments. He is due for treatment tomorrow. We can reach out to his oncologist to see if there is any reason to hold it given that he has active infection. 5. History of gout. We will continue his allopurinol. 6. Chronic anemia. His hemoglobin is stable. 7. Essential hypertension. He is on his blood pressure medications. Blood pressure is controlled. 8. Hyperlipidemia. We will continue his Zetia. 9. Coronary artery disease. We will continue his medical management. 10. Diabetes well controlled PLAN: The patient is admitted now to acute cares for IV antibiotics. Repeat ultrasound and lab monitoring. For deep venous thrombosis prophylaxis given his decreased GFR, we will put him on heparin twice daily as he has had no signs of active bleeding. He is a code level 2. MKA: 08/25/2020 11:42:03 MODL: 08/25/2020 12:45:24 /[id number] MTDGaston
[2020-08-25] MEDS: Isosorbide Dinitrate 10 MG Tab PO SCH ×2 (15:10→20:51)
[2020-08-25] MEDS: hydrALAZINE 25 MG Tab PO SCH (20:52)
[2020-08-25] MEDS: Tamsulosin 0.4 MG Cap.ER PO SCH (20:54)
[2020-08-25] MEDS: ZALEPLON 5 MG PO PRN (21:46)
[2020-08-26] MEDS: Meropenem 500 MG in Sodium Chloride 0.9% 100 ML IV SCH ×2 (03:55→15:45)
[2020-08-26 07:51] LABS: ANION GAP 14.4 mmol/L (5-15)
[2020-08-26] MEDS: Isosorbide Dinitrate 10 MG Tab PO SCH ×3 (09:10→20:43)
[2020-08-26] MEDS: Gabapentin 100 MG Cap PO SCH ×3 (09:11→20:42)
[2020-08-26] MEDS: Allopurinol 100 MG Tab PO SCH (09:11)
[2020-08-26] MEDS: Metoprolol Succinate 25 MG Tab.ER PO SCH (09:11)
[2020-08-26] MEDS: Furosemide 20 MG Tab PO SCH (09:12)
[2020-08-26] MEDS: hydrALAZINE 25 MG Tab PO SCH ×2 (09:12→20:43)
[2020-08-26] MEDS: Ezetimibe 10 MG Tab PO SCH (09:12)
[2020-08-26] MEDS: VALACYCLOVIR 500 MG PO SCH (09:13)
--- NOTE | 2020-08-26 12:31 | US ---
[id number] US/US Scrotum and Testicle Exam: US Scrotum and Testicle Indication:ORCHITIS. Comparison: No prior imaging for comparison. Discussion/Impression: Right testicle measures 19 x 19 x 27 mm. 17 x 16 x 23 mm exophytic solid-appearing mass arising from the right testicle. There is internal mineralization within the mass. There appears to be vascularity within the mass as well. Surgical consultation recommended. Visualize normal right testicle parenchyma demonstrates normal color Doppler flow and spectral waveform morphology. Left testicle measures 15 x 18 x 13 mm with normal color flow and spectral waveform morphology. Echogenicity is slightly heterogeneous. However, no underlying mass. No epididymal abnormality. Ruel Jaramillo MD 08/26/20 0076 Thank you for allowing us to participate in the care of your patient.
--- NOTE | 2020-08-26 17:20 | PN ---
Progress Note for [facility]UE SIMMS Date: 08/26/2020 Room #: VM.203 SUBJECTIVE: This is hospital day #2 on a 80-year-old admitted with an orchitis on the right testicle. He underwent an ultrasound today which did not show any increase in size of this 17 x 16 x 23 mm exophytic solid appearing mass arising from the right testicle. Urology is waiting for images to be sent down to [place] to review. Eventually, he will need surgery, but he has been afebrile. He still has discomfort in the area, but it has not been worsening pain. He has been on IV antibiotics and his white count has improved. Urine function has also slightly improved with the Mars catheter in. He has had good oral intake. Otherwise, he is due for his treatment today, [place] for multiple myeloma. I have reached out to his oncologist regarding that. The patient is on day #2 full day of meropenem. OBJECTIVE: Vital Signs: This morning, the patient's temperature is 97.9, pulse 80, blood pressure 158/69, respiratory rate 17, O2 of 97% on room air. General: He is in no acute distress. Heart: Regular rate and rhythm with murmur noted. Lungs: Sounds are clear to auscultation bilaterally without crackles or wheezes. Abdomen: Nondistended, nontender. Extremities: Warm and dry. No edema. Genitourinary: Catheter in place. His right testicle is palpated, it is tender and red and firm. Did not appreciate any warmth so through the glove. Mental Status: He is alert, he is orientated x3. LABORATORY DATA: White count went up slightly to 10.8, hemoglobin stable at 10.3, platelets 138. Sodium 133, potassium 4.4, chloride 100, bicarb 23, BUN 47, creatinine 3.4, glucose 105, calcium 8.9. ASSESSMENT AND PLAN: 1. Orchitis, failing outpatient antibiotics. We will get a repeat ultrasound today and determine when his surgery will be planned or whether he needs an acute transfer. He will continue IV meropenem. 2. Essential hypertension, elevated. We will increase his Isordil to 20 mg t.i.d. that is what he was taking at home. 3. Acute on chronic renal failure probably due to urinary retention. This is improving. He has not even gotten any fluids. 4. Chronic combined systolic and diastolic heart failure. The patient is known EF of 50%, recently improved. We will continue with his furosemide. 5. Dyslipidemia. He is on his Zetia. 6. Multiple myeloma. He is due for treatment today. I have reached out to Oncology. 7. Chronic anemia, stable. 8. History of gout. He is on allopurinol. 9. Coronary artery disease, on medical management. 10.Diabetes, well controlled, not on any medications. The patient will continue acute cares with IV antibiotics. We have stopped heparin for DVT prophylaxis as he did have some bloody urine in his catheter bag. We will repeat lab work tomorrow. We will get him on some SCDs. MKA: 08/26/2020 16:35:27 MODL: 08/26/2020 17:15:25 /[id number]
[2020-08-26] MEDS: Tamsulosin 0.4 MG Cap.ER PO SCH (20:42)
[2020-08-26] MEDS: ZALEPLON 5 MG PO PRN (22:44)
[2020-08-27] MEDS: Meropenem 500 MG in Sodium Chloride 0.9% 100 ML IV SCH ×2 (03:27→03:28)
[2020-08-27 07:19] LABS: ANION GAP 15.5 mmol/L (5-15)
[2020-08-27] MEDS: VALACYCLOVIR 500 MG PO SCH (09:15)
[2020-08-27] MEDS: Metoprolol Succinate 25 MG Tab.ER PO SCH (09:23)
[2020-08-27] MEDS: Gabapentin 100 MG Cap PO SCH ×2 (09:23→13:16)
[2020-08-27] MEDS: Isosorbide Dinitrate 10 MG Tab PO SCH ×2 (09:23→13:16)
[2020-08-27] MEDS: hydrALAZINE 25 MG Tab PO SCH (09:24)
[2020-08-27] MEDS: Allopurinol 100 MG Tab PO SCH (09:24)
[2020-08-27] MEDS: Ezetimibe 10 MG Tab PO SCH (09:24)
[2020-08-27 09:26] VITALS: PULSE 99
[2020-08-27] MEDS: Furosemide 20 MG Tab PO SCH (09:26)
[2020-08-27] MEDS ORDERED: Ertapenem 1 GM Vial IVPUSH SCH (13:00)
[2020-08-27 13:18] VITALS: BP 160/85
--- NOTE | 2020-08-27 13:49 | DISCH ---
PRIMARY DISCHARGE DIAGNOSES: 1. Urinary retention due to scrotal swelling. 2. Orchitis with abscess, planning to undergo surgical treatment. 3. Cpqgl-ws-zirbxpe renal failure. Discharging creatinine is 3.6 with a GFR of 16. His baseline creatinine is around 3.1 with GFR of 19. 4. Multiple myeloma on treatments, but holding that until after his surgical treatment. He did not get Ninlaro on Wednesday. 5. Essential hypertension with elevated blood pressures. He had been taking lower doses of Isordil. 6. Coronary artery disease, stable without any angina. He is status post a CABG. 7. Diet-controlled diabetes. Blood sugars were excellent during his stay. He did not require any insulin. 8. Chronic diastolic heart failure. EF is 50%. He had no symptoms of heart failure. He was diuresing extremely well. 9. Dyslipidemia. 10.History of gout. 11.Chronic anemia with stable hemoglobin. 12.Mild hematuria. This was noted after getting heparin for deep venous thrombosis prophylaxis. He had no further doses after Wednesday. 13.Obesity. 14.Remote history of orchitis, like 5 years ago. REASON FOR ADMISSION: On the date of admission, this 80-year-old male who had been receiving outpatient Levaquin for orchitis since 08/16/2020 came into the ER because of increased scrotal swelling and inability to void. He has had some history of urethral stricture, so normally does straight cath. The patient had not had any urinary symptoms, but has had previous recurrent UTIs. His culture did grow the ESBL Klebsiella and E. coli, but he was clinically improving, so antibiotics were not changed. However, when he came into the emergency room, his white count was elevated to 11.3, and therefore he was placed on IV meropenem. Discussion was had with ID and Infectious Disease. An outpatient surgical treatment for this was arranged. The plan was to get an ultrasound on Wednesday, which we did, which did not show a significant worsening of the abscess. Otherwise, the patient would have been acutely transferred. The patient is feeling much better and catheter will be left in place until his surgery. The patient is feeling like he will be able to return home. His creatinine that was up to 3.6 on admission did trend down to 3.4, is up to 3.6 again today. He has had excellent urine output and did have good intake over 2 L on the and out 5 L, but yesterday only around 1000 of intake and out 2.5. He has been receiving Lasix daily here to help with his edema and he has had mildly elevated blood pressures as well. No chest pain. No coughing. No breathing trouble. The patient is eating and drinking well 100% of his meals. He has had bowel movements. He does have pain in his scrotal area. He has not even taken any pain pills for it, but may have Tylenol if needed for discomfort. The patient is also on Flomax. Decision was made since he was discharging to switch him over to ertapenem today 500 mg at 1 o'clock and to get another dose tomorrow at 1 p.m. and surgery on where he will visit with the urologist prior to surgery. He also has followup with his oncologist, Dr. Gordon on Wednesday, but that may need to be rescheduled and the patient's treatments are on hold until after surgery. Further antibiotics will be determined by the Urology and Infectious Disease. PHYSICAL EXAMINATION: Vital Signs: Discharging vitals included temperature 98.9, pulse 77, blood pressure 157/66, respiratory rate 20, and O2 of 95% on room air. His T-max in the last 24 hours was 99.4 at 2 a.m. General: He is in no acute distress. Heart: Regular rate and rhythm. S1, S2 with murmur noted. Lungs: Lung sounds are clear to auscultation bilaterally without crackles or wheezes. Abdomen: Positive bowel sounds. Soft, nondistended, nontender. Extremities: Warm and dry. No edema. Mental Status: He is alert. He is orientated x3. Genitourinary: Scrotum is examined. There is just some fine redness just in the scrotum itself. Penis and suprapubic area and legs all normal. No redness there. No open sores. He does have tenderness to that firm area that is just possibly slightly larger than yesterday moving into the sort of the left side now, but had mostly been on the right. DISCHARGE PLANS AND INSTRUCTIONS: The patient will return for IV ertapenem tomorrow. He will have surgery for possible orchiectomy, but at least abscess clearing on . A Mars catheter is to be left in place and it will be removed by the surgeon either at surgery or a couple of days after surgery. The patient may take Tylenol for pain. He has followup lab work due from his oncologist the end of this week or early next week depending if he reschedules. Greater than 30 minutes spent on the discharge process. MKA: 08/27/2020 13:00:20 MODL: 08/27/2020 13:40:53 /[id number]
== END 2020-08-27 15:10 | disposition home or self-care (01) | DRG 728 ==
LOC: VM.ED 01:02 → VM.MS 02:46 → UNDOADMOB 02:50 → VM.MS 02:50 → OBSVTOIN 10:48
PROVIDERS: ADMIT Internal Medicine; ATTEND Internal Medicine
DX: N39.0 Urinary tract infection, site not specified (principal); B96.20 Unspecified Escherichia coli [E. coli] as the cause of diseases classified elsewhere; B96.89 Other specified bacterial agents as the cause of diseases classified elsewhere; N45.2 Orchitis; Z16.23 Resistance to quinolones and fluoroquinolones; N17.9 Acute kidney failure, unspecified; I13.0 Hypertensive heart and chronic kidney disease with heart failure and stage 1 through stage 4 chronic kidney disease, or unspecified chronic kidney disease; E78.00 Pure hypercholesterolemia, unspecified; I42.9 Cardiomyopathy, unspecified; L25.2 Unspecified contact dermatitis due to dyes; I73.9 Peripheral vascular disease, unspecified; I35.1 Nonrheumatic aortic (valve) insufficiency; G47.30 Sleep apnea, unspecified; K21.9 Gastro-esophageal reflux disease without esophagitis; K76.0 Fatty (change of) liver, not elsewhere classified; E11.40 Type 2 diabetes mellitus with diabetic neuropathy, unspecified; E11.42 Type 2 diabetes mellitus with diabetic polyneuropathy; I50.42 Chronic combined systolic (congestive) and diastolic (congestive) heart failure; D47.2 Monoclonal gammopathy; C90.00 Multiple myeloma not having achieved remission; N18.9 Chronic kidney disease, unspecified; R33.9 Retention of urine, unspecified; N18.2 Chronic kidney disease, stage 2 (mild); I25.10 Atherosclerotic heart disease of native coronary artery without angina pectoris; Z95.1 Presence of aortocoronary bypass graft; E11.22 Type 2 diabetes mellitus with diabetic chronic kidney disease; Z88.8 Allergy status to other drugs, medicaments and biological substances; Z91.041 Radiographic dye allergy status; Z91.013 Allergy to seafood; Z79.82 Long term (current) use of aspirin; Z79.899 Other long term (current) drug therapy; E78.5 Hyperlipidemia, unspecified; M10.9 Gout, unspecified; D64.9 Anemia, unspecified; R31.9 Hematuria, unspecified; E66.9 Obesity, unspecified; Z20.822 Contact with and (suspected) exposure to COVID-19
CPT/HCPCS: 36415; 51702; 76870; 80048; 80053; 82947; 83605; 83880; 85025; 85652; 86140; 99284; 99284-25; A9270-GY; J1335; J1644; J2185; U0002

== ENCOUNTER 2020-08-29 20:25 | Emergency (ER) | payer MEDICARE, OTHER ==
--- NOTE | 2020-08-29 21:16 | EDM.PDOC ---
ED HPI GENERAL MEDICAL PROBLEM - General Time Seen by Provider: 08/29/20 20:38 Source of Information: Reports: Patient - History of Present Illness INITIAL COMMENTS - FREE TEXT/NARRATIVE: Coleman is a 80 y/o male who comes to the ER and is concerned that his marcelo catheter os not really draining much. He had an outpatient surgery today about 2 pm that removed one of his testicles. He is supposed to have the marcelo in place until Wednesday when he returns to the Urology office. He denies being uncomfortable, but was concerned that he had very little output. He denies any trauma to the catheter. After arriving to the ER he remembered that he had not taken his diuretics like usual because of his surgery today. - Related Data Allergies Allergy/AdvReac Type Severity Reaction Status Date / Time Iodinated Contrast Media Allergy Severe Anaphylactic Verified 08/28/20 13:34 Shock shellfish derived Allergy Severe Anaphylactic Verified 08/28/20 13:34 Shock iodine Allergy Unknown Cannot Verified 08/28/20 13:34 Remember Topvvkp-Cwa-Ilb Reductase AdvReac Intermediate Liver Verified 08/28/20 13:34 Inhibitor Problems Home Meds: Home Meds Betamethasone Dipropionate [Diprosone 0.05% Crm] 1 applic TOP DAILY PRN 09/20/18 [History] Ergocalciferol (Vitamin D2) [Vitamin D2] 50,000 units PO Q7D 09/20/18 [History] Glucosamine/D3/Boswellia Cris [Glucosamine Daily Complex Tab] 1 tab PO DAILY 09/20/18 [History] Nitroglycerin 0.4 mg SL ASDIRECTED PRN 09/20/18 [History] Tamsulosin [Flomax] 0.4 mg PO BEDTIME 09/20/18 [History] Vit B Cmplx NO3/Fa/C/Biot/Zinc [Nephplex Rx] 1 tab PO ASDIRECTED 09/20/18 [History] Furosemide [Lasix] 20 mg PO DAILY PRN 04/15/19 [History] Ixazomib Citrate [Ninlaro] 2.3 mg PO Q7D 04/15/19 [History] valACYclovir [Valtrex] 1 tab PO DAILY 04/15/19 [History] Aspirin 81 mg PO ASDIRECTED 04/17/19 [History] Zaleplon [Sonata] 5 mg PO BEDTIME PRN 12/09/19 [History] Ezetimibe 10 mg PO DAILY 01/10/20 [History] Fenofibrate Nanocrystallized [Fenofibrate] 48 mg PO DAILY 01/10/20 [History] Gabapentin [Neurontin] 200 mg PO TID 01/10/20 [History] Metoprolol Succinate 25 mg PO DAILY 01/10/20 [History] allopurinoL [Zyloprim] 100 mg PO DAILY 01/10/20 [History] Ascorbic Acid [Vitamin C] 500 mg PO DAILY 06/11/20 [History] Calcium Carbonate/Vitamin D3 [Calcium 600-Vit D3 800 Caplet] 1 each PO DAILY 06/11/20 [History] Cyanocobalamin (Vitamin B-12) [B-12] 1,000 mcg PO MOWEFR 06/11/20 [History] D-Mannose 1,500 mg PO DAILY 06/11/20 [History] Sodium Zirconium Cyclosilicate [Lokelma] 10 gm PO 1200 06/11/20 [History] Ubidecarenone [Coq-10] 100 mg PO DAILY 06/11/20 [History] Vitamin E 400 unit PO DAILY 06/11/20 [History] Zinc 50 mg PO DAILY 06/11/20 [History] hydrALAZINE [Apresoline] 12.5 mg PO Q12HR 06/11/20 [History] Isosorbide Dinitrate 20 mg PO TID 08/25/20 [History] Ertapenem [INVanz] 0.5 gm IVPUSH DAILY@1300 vial 08/27/20 [Rx] Past Medical History HEENT History: Reports: Cataract Cardiovascular History: Reports: Angina, CAD, Cardiomyopathy, Heart Failure, High Cholesterol, Hypertension, [place], PVD, Other (See Below) Other Cardiovascular History: aortic regurgitation, abnormal stress test, orthostatic hypotension Respiratory History: Reports: Sleep Apnea Gastrointestinal History: Reports: Fatty Liver, Gastritis, GERD Genitourinary History: Reports: Renal Disease, UTI, Recurrent, Other (See Below) Other Genitourinary History: Stage 2, ED, urethral stricture, acute kidney injury, dysuria Neurological History: Reports: Neuropathy, Diabetic, Neuropathy, Peripheral Endocrine/Metabolic History: Reports: Diabetes, Type II, Hypomagnesemia, Obesity/BMI 30+, Other (See Below) Other Endocrine/Metabolic History: hyperkalemia, gout, hypercalcemia Hematologic History: Reports: Anemia Immunologic History: Reports: Other (See Below) Other Immunologic History: monoclonal paraproteinemia, MGUS, chemotherapy induced neutropenia Oncologic (Cancer) History: Reports: Other (See Below) Other Oncologic History: multiple myeloma - Infectious Disease History Infectious Disease History: Reports: Shingles - Past Surgical History Cardiovascular Surgical History: Reports: Coronary Artery Bypass GI Surgical History: Reports: Colonoscopy Male Surgical History: Reports: Other (See Below) Other Male Surgeries/Procedures: bladder sphincter repair 1973 Social & Family History - Caffeine Use Caffeine Use: Reports: Coffee - Living Situation & Occupation Living situation: Reports: , with Spouse Review of Systems - Review of Systems Review Of Systems: See Below Constitutional: Reports: No Symptoms Eyes: Reports: No Symptoms Ears: Reports: No Symptoms Nose: Reports: No Symptoms Mouth/Throat: Reports: No Symptoms Respiratory: Reports: No Symptoms Cardiovascular: Reports: No Symptoms GI/Abdominal: Reports: No Symptoms Genitourinary: Reports: Other (Decreased urine output) Musculoskeletal: Reports: No Symptoms Skin: Reports: No Symptoms Neurological: Reports: No Symptoms Psychiatric: Reports: No Symptoms ED EXAM, GENERAL - Physical Exam Exam: See Below General Appearance: Alert, WD/WN, No Apparent Distress (Elderly male) Course - Vital Signs Text/Narrative:: 2037 The patient was seen by the PIPE PRODUCTION WORKER. RN scanned bladder x2 and noted 349ml and 263ml with scanner. Marcelo was flushed and had good return into collection bag. Suspect his output is less today due to his CKD and the fact that he has not take his diuretics as usual due to surgery. Patient was reassured to continue with marcelo cares and follow up with Urology as instructed. He left the ER in stable condition after written instructions were given. Departure - Departure Time of Disposition: 21:14 Disposition: Home, Self-Care 01 Condition: Good Clinical Impression: Marcelo catheter in place CRF (chronic renal failure) Qualifiers: Chronic kidney disease stage: unspecified stage Qualified Code(s): N18.9 - Chronic kidney disease, unspecified - Discharge Information Instructions: Indwelling Urinary Catheter Care, Adult Additional Instructions: -Continue marcelo cares as instructed -Resume medications as prescribed -Keep follow up appts -Return to the ER for any concerns
[2020-08-30 00:11] VITALS: BP 120/51; PULSE 67
== END 2020-08-29 21:25 | disposition home or self-care (01) ==
LOC: VM.ED 20:25
DX: I13.0 Hypertensive heart and chronic kidney disease with heart failure and stage 1 through stage 4 chronic kidney disease, or unspecified chronic kidney disease (principal); I50.9 Heart failure, unspecified; N18.2 Chronic kidney disease, stage 2 (mild); E11.22 Type 2 diabetes mellitus with diabetic chronic kidney disease; E11.42 Type 2 diabetes mellitus with diabetic polyneuropathy; I25.10 Atherosclerotic heart disease of native coronary artery without angina pectoris; E78.00 Pure hypercholesterolemia, unspecified; M10.9 Gout, unspecified; E66.9 Obesity, unspecified; Z68.37 Body mass index [BMI] 37.0-37.9, adult; Z91.041 Radiographic dye allergy status; Z91.013 Allergy to seafood; Z91.048 Other nonmedicinal substance allergy status; Z79.82 Long term (current) use of aspirin; Z79.899 Other long term (current) drug therapy
CPT/HCPCS: 51700; 99283-25; 99284

== ENCOUNTER 2020-08-30 04:13 | Emergency (ER) | payer MEDICARE, OTHER ==
--- NOTE | 2020-08-30 04:50 | EDM.PDOC ---
ED HPI GENERAL MEDICAL PROBLEM - General Chief Complaint: Genitourinary Problem Stated Complaint: Catheter not draining Time Seen by Provider: 08/30/20 04:26 Source of Information: Reports: Patient - History of Present Illness INITIAL COMMENTS - FREE TEXT/NARRATIVE: Coleman is a 80 y/o male who returns to the ER with his marcelo catheter not draining any urine. He was just in earlier this evening and the catheter was flushed. He has not had any output since leaving and he has been getting more uncomfortable. - Related Data Allergies Allergy/AdvReac Type Severity Reaction Status Date / Time Iodinated Contrast Media Allergy Severe Anaphylactic Verified 08/30/20 00:10 Shock shellfish derived Allergy Severe Anaphylactic Verified 08/30/20 00:10 Shock iodine Allergy Unknown Cannot Verified 08/30/20 00:10 Remember Cmfqsvq-Jff-Jbt Reductase AdvReac Intermediate Liver Verified 08/30/20 00:10 Inhibitor Problems Home Meds: Home Meds Betamethasone Dipropionate [Diprosone 0.05% Crm] 1 applic TOP DAILY PRN 09/20/18 [History] Ergocalciferol (Vitamin D2) [Vitamin D2] 50,000 units PO Q7D 09/20/18 [History] Glucosamine/D3/Boswellia Cris [Glucosamine Daily Complex Tab] 1 tab PO DAILY 09/20/18 [History] Nitroglycerin 0.4 mg SL ASDIRECTED PRN 09/20/18 [History] Tamsulosin [Flomax] 0.4 mg PO BEDTIME 09/20/18 [History] Vit B Cmplx NO3/Fa/C/Biot/Zinc [Nephplex Rx] 1 tab PO ASDIRECTED 09/20/18 [History] Furosemide [Lasix] 20 mg PO DAILY PRN 04/15/19 [History] Ixazomib Citrate [Ninlaro] 2.3 mg PO Q7D 04/15/19 [History] valACYclovir [Valtrex] 1 tab PO DAILY 04/15/19 [History] Aspirin 81 mg PO ASDIRECTED 04/17/19 [History] Zaleplon [Sonata] 5 mg PO BEDTIME PRN 04/17/19 [History] Ezetimibe 10 mg PO DAILY 01/10/20 [History] Fenofibrate Nanocrystallized [Fenofibrate] 48 mg PO DAILY 01/10/20 [History] Gabapentin [Neurontin] 200 mg PO TID 01/10/20 [History] Metoprolol Succinate 25 mg PO DAILY 01/10/20 [History] allopurinoL [Zyloprim] 100 mg PO DAILY 01/10/20 [History] Ascorbic Acid [Vitamin C] 500 mg PO DAILY 06/11/20 [History] Calcium Carbonate/Vitamin D3 [Calcium 600-Vit D3 800 Caplet] 1 each PO DAILY 06/11/20 [History] Cyanocobalamin (Vitamin B-12) [B-12] 1,000 mcg PO MOWEFR 06/11/20 [History] D-Mannose 1,500 mg PO DAILY 06/11/20 [History] Sodium Zirconium Cyclosilicate [Lokelma] 10 gm PO 1200 06/11/20 [History] Ubidecarenone [Coq-10] 100 mg PO DAILY 06/11/20 [History] Vitamin E 400 unit PO DAILY 06/11/20 [History] Zinc 50 mg PO DAILY 06/11/20 [History] hydrALAZINE [Apresoline] 12.5 mg PO Q12HR 06/11/20 [History] Isosorbide Dinitrate 20 mg PO TID 08/25/20 [History] Ertapenem [INVanz] 0.5 gm IVPUSH DAILY@1300 vial 08/27/20 [Rx] Past Medical History HEENT History: Reports: Cataract Cardiovascular History: Reports: Angina, CAD, Cardiomyopathy, Heart Failure, High Cholesterol, Hypertension, [place], PVD, Other (See Below) Other Cardiovascular History: aortic regurgitation, abnormal stress test, orthostatic hypotension Respiratory History: Reports: Sleep Apnea Gastrointestinal History: Reports: Fatty Liver, Gastritis, GERD Genitourinary History: Reports: Renal Disease, UTI, Recurrent, Other (See Below) Other Genitourinary History: Stage 2, ED, urethral stricture, acute kidney injury, dysuria Neurological History: Reports: Neuropathy, Diabetic, Neuropathy, Peripheral Endocrine/Metabolic History: Reports: Diabetes, Type II, Hypomagnesemia, Obesity/BMI 30+, Other (See Below) Other Endocrine/Metabolic History: hyperkalemia, gout, hypercalcemia Hematologic History: Reports: Anemia Immunologic History: Reports: Other (See Below) Other Immunologic History: monoclonal paraproteinemia, MGUS, chemotherapy induced neutropenia Oncologic (Cancer) History: Reports: Other (See Below) Other Oncologic History: multiple myeloma - Infectious Disease History Infectious Disease History: Reports: Shingles - Past Surgical History Cardiovascular Surgical History: Reports: Coronary Artery Bypass GI Surgical History: Reports: Colonoscopy Male Surgical History: Reports: Other (See Below) Other Male Surgeries/Procedures: bladder sphincter repair 1972 Social & Family History - Caffeine Use Caffeine Use: Reports: Coffee - Living Situation & Occupation Living situation: Reports: , with Spouse Review of Systems - Review of Systems Review Of Systems: See Below Constitutional: Reports: No Symptoms Eyes: Reports: No Symptoms Ears: Reports: No Symptoms Nose: Reports: No Symptoms Mouth/Throat: Reports: No Symptoms Respiratory: Reports: No Symptoms Cardiovascular: Reports: No Symptoms GI/Abdominal: Reports: No Symptoms Genitourinary: Reports: Other (marcelo not draining) Musculoskeletal: Reports: No Symptoms Skin: Reports: No Symptoms ED EXAM, GENERAL - Physical Exam Exam: See Below General Appearance: Alert, WD/WN, No Apparent Distress (Elderly male) Ears: Hearing Grossly Normal Nose: Normal Inspection Throat/Mouth: Normal Lips, Normal Teeth, Normal Voice Head: Atraumatic, Normocephalic Respiratory/Chest: No Respiratory Distress GI/Abdominal: Distended, Tender (Male) Exam: Other (Surgical drain intact) Rectal (Males) Exam: Deferred Extremities: Normal Inspection Neurological: Alert, Oriented, CN II-XII Intact Psychiatric: Normal Affect Skin Exam: Warm, Dry, Intact, Normal Color Course - Vital Signs Text/Narrative:: 0427 The patient was seen by the BEVERAGE MANAGER. RN used bladder scanner and noted 750ml in bladder. Marcelo was then manipulated and balloon deflated and re-inflated and then noted flores urine flowing in tubing. Noted 1300ml of urine in collection bag and patient reported relief of abdominal tenderness. He was given discharge instructions and left the ER in stable condition. Departure - Departure Time of Disposition: 04:50 Disposition: Home, Self-Care 01 Condition: Good Clinical Impression: Marcelo catheter in place - Discharge Information Instructions: Indwelling Urinary Catheter Care, Adult Additional Instructions: -Continue post op instructions. -Keep follow ups as scheduled -Return as needed to ER
[2020-08-30 05:38] VITALS: BP 148/55; PULSE 67
== END 2020-08-30 04:58 | disposition home or self-care (01) ==
LOC: VM.ED 04:13
DX: T83.091A Other mechanical complication of indwelling urethral catheter, initial encounter (principal); I25.10 Atherosclerotic heart disease of native coronary artery without angina pectoris; I11.0 Hypertensive heart disease with heart failure; I50.9 Heart failure, unspecified; E78.00 Pure hypercholesterolemia, unspecified; I25.2 Old myocardial infarction; E11.40 Type 2 diabetes mellitus with diabetic neuropathy, unspecified; E66.9 Obesity, unspecified; Z95.1 Presence of aortocoronary bypass graft; Z68.30 Body mass index [BMI] 30.0-30.9, adult; Z79.82 Long term (current) use of aspirin; Z79.899 Other long term (current) drug therapy; Z91.041 Radiographic dye allergy status; Z91.013 Allergy to seafood; Z88.8 Allergy status to other drugs, medicaments and biological substances
CPT/HCPCS: 99283

== ENCOUNTER 2020-09-01 03:15 | Emergency (ER) | payer MEDICARE, OTHER ==
--- NOTE | 2020-09-01 03:58 | EDM.PDOC ---
ED HPI GENERAL MEDICAL PROBLEM - General Chief Complaint: Genitourinary Problem Stated Complaint: urinary cath not draining Time Seen by Provider: 09/01/20 03:49 Source of Information: Reports: Patient, Family - History of Present Illness INITIAL COMMENTS - FREE TEXT/NARRATIVE: Coleman is a 80 y/o male who returns again to night with his marcelo plugged and not draining very well. He had it placed on after a Urology procedure. He has had to come the ER twice already to have it irrigated. Seems to be the same issue again. - Related Data Allergies Allergy/AdvReac Type Severity Reaction Status Date / Time Iodinated Contrast Media Allergy Severe Anaphylactic Verified 08/30/20 05:38 Shock shellfish derived Allergy Severe Anaphylactic Verified 08/30/20 05:38 Shock iodine Allergy Unknown Cannot Verified 08/30/20 05:38 Remember Dwsbljo-Tdx-Wbi Reductase AdvReac Intermediate Liver Verified 08/30/20 05:38 Inhibitor Problems Home Meds: Home Meds Betamethasone Dipropionate [Diprosone 0.05% Crm] 1 applic TOP DAILY PRN 09/20/18 [History] Ergocalciferol (Vitamin D2) [Vitamin D2] 50,000 units PO Q7D 09/20/18 [History] Glucosamine/D3/Boswellia Cris [Glucosamine Daily Complex Tab] 1 tab PO DAILY 09/20/18 [History] Nitroglycerin 0.4 mg SL ASDIRECTED PRN 09/20/18 [History] Tamsulosin [Flomax] 0.4 mg PO BEDTIME 09/20/18 [History] Vit B Cmplx NO3/Fa/C/Biot/Zinc [Nephplex Rx] 1 tab PO ASDIRECTED 09/20/18 [History] Furosemide [Lasix] 20 mg PO DAILY PRN 04/15/19 [History] Ixazomib Citrate [Ninlaro] 2.3 mg PO Q7D 04/15/19 [History] valACYclovir [Valtrex] 1 tab PO DAILY 04/15/19 [History] Aspirin 81 mg PO ASDIRECTED 04/17/19 [History] Zaleplon [Sonata] 5 mg PO BEDTIME PRN 04/17/19 [History] Ezetimibe 10 mg PO DAILY 01/10/20 [History] Fenofibrate Nanocrystallized [Fenofibrate] 48 mg PO DAILY 01/10/20 [History] Gabapentin [Neurontin] 200 mg PO TID 01/10/20 [History] Metoprolol Succinate 25 mg PO DAILY 01/10/20 [History] allopurinoL [Zyloprim] 100 mg PO DAILY 01/10/20 [History] Ascorbic Acid [Vitamin C] 500 mg PO DAILY 06/11/20 [History] Calcium Carbonate/Vitamin D3 [Calcium 600-Vit D3 800 Caplet] 1 each PO DAILY 06/11/20 [History] Cyanocobalamin (Vitamin B-12) [B-12] 1,000 mcg PO MOWEFR 06/11/20 [History] D-Mannose 1,500 mg PO DAILY 06/11/20 [History] Sodium Zirconium Cyclosilicate [Lokelma] 10 gm PO 1200 06/11/20 [History] Ubidecarenone [Coq-10] 100 mg PO DAILY 06/11/20 [History] Vitamin E 400 unit PO DAILY 06/11/20 [History] Zinc 50 mg PO DAILY 06/11/20 [History] hydrALAZINE [Apresoline] 12.5 mg PO Q12HR 06/11/20 [History] Isosorbide Dinitrate 20 mg PO TID 08/25/20 [History] Ertapenem [INVanz] 0.5 gm IVPUSH DAILY@1300 vial 08/27/20 [Rx] Past Medical History HEENT History: Reports: Cataract Cardiovascular History: Reports: Angina, CAD, Cardiomyopathy, Heart Failure, High Cholesterol, Hypertension, [place], PVD, Other (See Below) Other Cardiovascular History: aortic regurgitation, abnormal stress test, orthostatic hypotension Respiratory History: Reports: Sleep Apnea Gastrointestinal History: Reports: Fatty Liver, Gastritis, GERD Genitourinary History: Reports: Renal Disease, UTI, Recurrent, Other (See Below) Other Genitourinary History: Stage 2, ED, urethral stricture, acute kidney injury, dysuria Neurological History: Reports: Neuropathy, Diabetic, Neuropathy, Peripheral Endocrine/Metabolic History: Reports: Diabetes, Type II, Hypomagnesemia, Obesity/BMI 30+, Other (See Below) Other Endocrine/Metabolic History: hyperkalemia, gout, hypercalcemia Hematologic History: Reports: Anemia Immunologic History: Reports: Other (See Below) Other Immunologic History: monoclonal paraproteinemia, MGUS, chemotherapy induced neutropenia Oncologic (Cancer) History: Reports: Other (See Below) Other Oncologic History: multiple myeloma - Infectious Disease History Infectious Disease History: Reports: Shingles - Past Surgical History Cardiovascular Surgical History: Reports: Coronary Artery Bypass GI Surgical History: Reports: Colonoscopy Male Surgical History: Reports: Other (See Below) Other Male Surgeries/Procedures: bladder sphincter repair 1972 Social & Family History - Caffeine Use Caffeine Use: Reports: Coffee - Living Situation & Occupation Living situation: Reports: , with Spouse Review of Systems - Review of Systems Review Of Systems: See Below Constitutional: Reports: No Symptoms Eyes: Reports: No Symptoms Ears: Reports: No Symptoms Nose: Reports: No Symptoms Mouth/Throat: Reports: No Symptoms Respiratory: Reports: No Symptoms Cardiovascular: Reports: No Symptoms GI/Abdominal: Reports: No Symptoms Genitourinary: Reports: Other (marcelo not draining) Musculoskeletal: Reports: No Symptoms Skin: Reports: No Symptoms Neurological: Reports: No Symptoms Psychiatric: Reports: No Symptoms ED EXAM, GENERAL - Physical Exam Exam: See Below General Appearance: Alert, WD/WN, No Apparent Distress (Elderly male) Head: Atraumatic, Normocephalic Respiratory/Chest: No Respiratory Distress GI/Abdominal: Soft, Non-Tender, Other (obese, difficult to assess bladder distention) (Male) Exam: Other (indwelling marcelo intact) Rectal (Males) Exam: Deferred Extremities: Normal Inspection Neurological: Alert, Oriented, CN II-XII Intact, Normal Cognition, No Motor/Sensory Deficits Skin Exam: Warm, Dry, Intact, Normal Color Course - Vital Signs Text/Narrative:: 0349 The patient was seen by the BUSINESS INITIATIVES MANAGER. RN scanned bladder and reported 700ml present. RN then irrigated and readjusted the marcelo and immediately got 100ml of clear yellow urine returned in the collection bag. Patient and his were given instructions and he left the ER in stable condition. Departure - Departure Time of Disposition: 04:05 Disposition: Home, Self-Care 01 Preliminary Cause of *Q: Cardiac Arrest Condition: Good Clinical Impression: Obstructed Marcelo catheter Qualifiers: Encounter type: subsequent encounter Qualified Code(s): T83.091D - Other mec hanical complication of indwelling urethral catheter, subsequent encounter - Discharge Information Instructions: Indwelling Urinary Catheter Care, Adult Forms: ED Department Discharge Additional Instructions: -Keep appt with Urology as scheduled -Make sure marcelo continues to drain -Continue post op cares as instructed -Return as needed to the ER
== END 2020-09-01 04:06 | disposition home or self-care (01) ==
LOC: VM.ED 03:15
DX: T83.091D Other mechanical complication of indwelling urethral catheter, subsequent encounter (principal); I25.10 Atherosclerotic heart disease of native coronary artery without angina pectoris; I11.0 Hypertensive heart disease with heart failure; I50.9 Heart failure, unspecified; I25.2 Old myocardial infarction; E78.00 Pure hypercholesterolemia, unspecified; E11.40 Type 2 diabetes mellitus with diabetic neuropathy, unspecified; E66.9 Obesity, unspecified; K21.9 Gastro-esophageal reflux disease without esophagitis; Z95.1 Presence of aortocoronary bypass graft; Z91.041 Radiographic dye allergy status; Z79.82 Long term (current) use of aspirin; Z79.899 Other long term (current) drug therapy; Z91.013 Allergy to seafood; Z88.8 Allergy status to other drugs, medicaments and biological substances; Z68.30 Body mass index [BMI] 30.0-30.9, adult
CPT/HCPCS: 51700; 99283; 99283-25

== ENCOUNTER 2021-03-16 16:36 | Inpatient (IN) | payer MEDICARE, OTHER ==
[2021-03-16] MEDS ORDERED: cefTRIAXone 1 GM Vial IVPUSH ONE (16:55)
--- NOTE | 2021-03-16 17:02 | EDM.PDOC ---
ED HPI GENERAL MEDICAL PROBLEM - General Stated Complaint: FEVER Time Seen by Provider: 03/16/21 16:52 Source of Information: Reports: Family - History of Present Illness INITIAL COMMENTS - FREE TEXT/NARRATIVE: Coleman is a 81 y/o male who is brought to the ER by his . She reports that they were at a concert in [place] this afternoon when he all of a sudden became confused and felt warm. He had been fine earlier this AM. He has gotten the COVID vaccine, denies any known exposures. His brought him right to the ER. - Related Data Allergies Allergy/AdvReac Type Severity Reaction Status Date / Time Iodinated Contrast Media Allergy Severe Anaphylactic Verified 03/16/21 19:45 Shock shellfish derived Allergy Severe Anaphylactic Verified 03/16/21 19:45 Shock iodine Allergy Unknown Cannot Verified 03/16/21 19:45 Remember Rtptxtk-UMI-DgF Reductase AdvReac Intermediate Liver Verified 03/16/21 19:45 Inhibitor Problems [Oiiwjmg-Zny-Trl Reductase Inhibitor] Home Meds: Home Meds Betamethasone Dipropionate [Diprosone 0.05% Crm] 1 applic TOP DAILY PRN 09/20/18 [History] Ergocalciferol (Vitamin D2) [Vitamin D2] 50,000 units PO Q7D 09/20/18 [History] Glucosamine/D3/Boswellia Cris [Glucosamine Daily Complex Tab] 1 tab PO DAILY 09/20/18 [History] Nitroglycerin 0.4 mg SL ASDIRECTED PRN 09/20/18 [History] Tamsulosin [Flomax] 0.4 mg PO BEDTIME 09/20/18 [History] Vit B Cmplx NO3/Fa/C/Biot/Zinc [Nephplex Rx] 1 tab PO ASDIRECTED 09/20/18 [History] Furosemide [Lasix] 20 mg PO DAILY PRN 04/15/19 [History] Ixazomib Citrate [Ninlaro] 2.3 mg PO Q7D 04/15/19 [History] valACYclovir [Valtrex] 1 tab PO DAILY 04/15/19 [History] Aspirin 81 mg PO ASDIRECTED 04/17/19 [History] Zaleplon [Sonata] 5 mg PO BEDTIME PRN 04/17/19 [History] Ezetimibe 10 mg PO DAILY 01/10/20 [History] Fenofibrate Nanocrystallized [Fenofibrate] 48 mg PO DAILY 01/10/20 [History] Gabapentin [Neurontin] 200 mg PO TID 01/10/20 [History] Metoprolol Succinate 25 mg PO DAILY 01/10/20 [History] allopurinoL [Zyloprim] 100 mg PO DAILY 01/10/20 [History] Ascorbic Acid [Vitamin C] 500 mg PO DAILY 06/11/20 [History] Calcium Carbonate/Vitamin D3 [Calcium 600-Vit D3 800 Caplet] 1 each PO DAILY 06/11/20 [History] Cyanocobalamin (Vitamin B-12) [B-12] 1,000 mcg PO MOWEFR 06/11/20 [History] D-Mannose 1,500 mg PO DAILY 06/11/20 [History] Sodium Zirconium Cyclosilicate [Lokelma] 10 gm PO 1200 06/11/20 [History] Ubidecarenone [Coq-10] 100 mg PO DAILY 06/11/20 [History] Vitamin E 400 unit PO DAILY 06/11/20 [History] Zinc 50 mg PO DAILY 06/11/20 [History] hydrALAZINE [Apresoline] 12.5 mg PO Q12HR 06/11/20 [History] Isosorbide Dinitrate 20 mg PO TID 08/25/20 [History] Ertapenem [INVanz] 0.5 gm IVPUSH DAILY@1300 vial 08/27/20 [Rx] Past Medical History HEENT History: Reports: Cataract Cardiovascular History: Reports: Angina, CAD, Cardiomyopathy, Heart Failure, High Cholesterol, Hypertension, CA, PVD, Other (See Below) Other Cardiovascular History: aortic regurgitation, abnormal stress test, orthostatic hypotension Respiratory History: Reports: Sleep Apnea Gastrointestinal History: Reports: Fatty Liver, Gastritis, GERD Genitourinary History: Reports: Renal Disease, UTI, Recurrent, Other (See Below) Other Genitourinary History: Stage 2, ED, urethral stricture, acute kidney injury, dysuria Neurological History: Reports: Neuropathy, Diabetic, Neuropathy, Peripheral Endocrine/Metabolic History: Reports: Diabetes, Type II, Hypomagnesemia, Obesity/BMI 30+, Other (See Below) Other Endocrine/Metabolic History: hyperkalemia, gout, hypercalcemia Hematologic History: Reports: Anemia Immunologic History: Reports: Other (See Below) Other Immunologic History: monoclonal paraproteinemia, MGUS, chemotherapy induced neutropenia Oncologic (Cancer) History: Reports: Other (See Below) Other Oncologic History: multiple myeloma - Infectious Disease History Infectious Disease History: Reports: Shingles - Past Surgical History Cardiovascular Surgical History: Reports: Coronary Artery Bypass GI Surgical History: Reports: Colonoscopy Male Surgical History: Reports: Other (See Below) Other Male Surgeries/Procedures: bladder sphincter repair 1973 Social & Family History - Family History Family Medical History: No Pertinent Family History - Caffeine Use Caffeine Use: Reports: Coffee - Living Situation & Occupation Living situation: Reports: , with Spouse Review of Systems - Review of Systems Review Of Systems: See Below Constitutional: Reports: Fever, Weakness Eyes: Reports: No Symptoms Ears: Reports: No Symptoms Nose: Reports: No Symptoms Mouth/Throat: Reports: No Symptoms Respiratory: Reports: No Symptoms GI/Abdominal: Reports: No Symptoms Genitourinary: Reports: No Symptoms Musculoskeletal: Reports: No Symptoms Skin: Reports: No Symptoms Neurological: Reports: Confusion, Weakness Psychiatric: Reports: No Symptoms ED EXAM, GENERAL - Physical Exam Exam: See Below General Appearance: Alert, WD/WN (Elderly male, neatly dressed and sitting in wheelchair, very weak and hard to trasnfer to cart. Does not answer anything more than yes or no.) Eye Exam: Bilateral Eye: PERRL Ears: Normal External Exam, Normal Canal, Hearing Grossly Normal, Normal TMs Nose: Normal Inspection, Normal Mucosa Throat/Mouth: Normal Inspection, Normal Lips, Normal Oropharynx, Normal Voice Head: Atraumatic, Normocephalic Neck: Normal Inspection, Supple Respiratory/Chest: No Respiratory Distress, No Accessory Muscle Use, Crackles (RLL) Cardiovascular: Normal Peripheral Pulses, Regular Rate, Rhythm, No Murmur GI/Abdominal: Normal Bowel Sounds, Soft, Non-Tender (Male) Exam: Deferred Rectal (Males) Exam: Deferred Back Exam: Normal Inspection Extremities: Normal Inspection, Normal Range of Motion, Normal Capillary Refill, Other (LO hose on) Neurological: Alert, CN II-XII Intact, Slow to Respond Skin Exam: Dry, Intact, Normal Color, Increased Warmth Lymphatic: No Adenopathy Course - Vital Signs Text/Narrative:: [id number] The patient was seen by the [employer]. Labs, CXR, and EKG ordered. Suspect sepsis with fever of 104.1 and Ceftriaxone 1 gm IVP ordered following exam. 1805 Mars placed due to history of urinary retention. UA sent. [address] bartolo Ribera. Will obtain CTs of Head and Abd/Pelvis. APAP 650mg rectally given. [address], reports pending. Patient moved to Acute Care unit for admission. See orders per Dr Anny Ribera. Last Recorded V/S: Last Vital Signs Temp 40.3 C H 03/16/21 19:41 Pulse 102 H 03/16/21 16:45 Resp 24 H 03/16/21 16:45 BP 149/54 H 03/16/21 16:45 Pulse Ox 96 03/16/21 16:45 - Orders/Labs/Meds Orders: Active Orders 24 hr Category Date Time Status Mars Catheter Insertion [Insert Urinary Catheter] [OM. Care 03/16/21 18:30 Ordered PC] Q24H Urinary Catheter Assessment [RC] ASDIRECTED Care 03/16/21 18:29 Active Abdomen Pelvis wo Cont [CT] Stat Exams 03/16/21 19:19 Taken Head wo Cont [CT] Stat Exams 03/16/21 19:19 Taken CULTURE BLOOD [BC] Routine Lab 03/16/21 17:15 Received CULTURE BLOOD [BC] Stat Lab 03/16/21 17:09 Results CULTURE URINE [RM] Stat Lab 03/16/21 18:45 Received Sodium Chloride 0.9% [Saline Flush] Med 03/16/21 16:54 Active 10 ml FLUSH ASDIRECTED PRN Blood Culture x2 Reflex Set [OM.PC] Stat Oth 03/16/21 16:54 Ordered Saline Lock Insert [OM.PC] Stat Oth 03/16/21 16:54 Ordered Medication Orders Sodium Chloride (Sodium Chloride 0.9% 10 Ml Syringe) 10 ml FLUSH ASDIRECTED PRN PRN Reason: Keep Vein Open Labs: Laboratory Tests 03/16/21 03/16/21 03/16/21 Range/Units 16:59 17:15 17:15 WBC 8.6 (4.0-10.0) x10^3/uL RBC 2.84 L (4.5-6.0) x10^6/uL Hgb 10.9 L (14.0-18.0) g/dL Hct 31.2 L (40.0-52.0) % MCV 109.9 H (78.0-93.0) fL MCH 38.4 H (26.0-32.0) pg MCHC 34.9 (32.0-36.0) g/dL RDW Coeff of Naz 12.1 (10.0-15.0) % Plt Count 128 L (130-400) x10^3/uL Immature Gran % (Auto) 0.10 (0.00-0.43) % Neut % (Auto) 93.1 H (50.0-80.0) % Lymph % (Auto) 4.8 L (25.0-50.0) % [place] % (Auto) 1.6 L (2.0-11.0) % Eos % (Auto) 0.2 (0.0-4.0) % Baso % (Auto) 0.2 (0.2-1.2) % Neut # (Auto) 8.0 H (1.8-7.7) x10^3/uL Lymph # (Auto) 0.4 L (1.0-4.8) x10^3/uL [place] # (Auto) 0.1 (0.0-0.8) x10^3/uL Eos # (Auto) 0.0 (0.0-0.5) x10^3/uL Baso # (Auto) 0.0 (0.0-0.2) x10^3/uL Immature Gran # (Auto) 0.01 (0.00-0.07) x10^3/uL PT 10.2 (9.9-12.5) SEC INR 0.9 L (2.0-3.5) APTT 21.8 L (25.6-32.8) SEC Sodium (136-145) mmol/L Potassium (3.5-5.1) mmol/L Chloride (98-107) mmol/L Carbon Dioxide (21-32) mmol/L Anion Gap (5-15) mmol/L BUN (7-18) mg/dL Creatinine (0.70-1.30) mg/dL Est Cr Clr Drug Dosing Estimated GFR (MDRD) Glucose (70-99) mg/dL Lactic Acid (0.4-2.0) mmol/L Calcium (8.5-10.1) mg/dL Corrected Calcium (8.5-10.1) mg/dL Magnesium (1.8-2.4) mg/dL Total Bilirubin (0.2-1.0) mg/dL AST (15-37) U/L ALT (16-63) U/L Alkaline Phosphatase (46-116) U/L Troponin I High Sens (<=76) ng/L C-Reactive Protein (<=0.9) mg/dL NT-Pro-B Natriuret Pep (<=450) pg/mL Total Protein (6.4-8.2) g/dL Albumin (3.4-5.0) g/dL Globulin Albumin/Globulin Ratio Procalcitonin (0.1-0.50) ng/mL Urine Color (YELLOW) Urine Appearance (CLEAR) Urine pH (5.0-8.0) Ur Specific [place] Urine Protein (NEGATIVE) mg/dL Urine Glucose (UA) (NEGATIVE) mg/dL Urine Ketones (NEGATIVE) mg/dL Urine Occult Blood (NEGATIVE) Urine Nitrite (NEGATIVE) Urine Bilirubin (NEGATIVE) Urine Urobilinogen (0.2) EU/dL Ur Leukocyte Esterase (NEGATIVE) U Hyaline Cast (Auto) Urine RBC (NOT SEEN) /HPF Urine WBC (NOT SEEN) /HPF Ur Squamous Epith Cells (NOT SEEN) /HPF Amorphous Sediment Urine Bacteria (NOT SEEN) /HPF Urine Mucus (NOT SEEN) /LPF Influenza Type A RNA Negative (NEGATIVE) Influenza Type B RNA Negative (NEGATIVE) SARS-CoV-2 RNA (ESEQUIEL) Negative (NEGATIVE) 03/16/21 03/16/21 03/16/21 Range/Units 17:15 17:15 17:15 WBC (4.0-10.0) x10^3/uL RBC (4.5-6.0) x10^6/uL Hgb (14.0-18.0) g/dL Hct (40.0-52.0) % MCV (78.0-93.0) fL MCH (26.0-32.0) pg MCHC (32.0-36.0) g/dL RDW Coeff of Naz (10.0-15.0) % Plt Count (130-400) x10^3/uL Immature Gran % (Auto) (0.00-0.43) % Neut % (Auto) (50.0-80.0) % Lymph % (Auto) (25.0-50.0) % [place] % (Auto) (2.0-11.0) % Eos % (Auto) (0.0-4.0) % Baso % (Auto) (0.2-1.2) % Neut # (Auto) (1.8-7.7) x10^3/uL Lymph # (Auto) (1.0-4.8) x10^3/uL [place] # (Auto) (0.0-0.8) x10^3/uL Eos # (Auto) (0.0-0.5) x10^3/uL Baso # (Auto) (0.0-0.2) x10^3/uL Immature Gran # (Auto) (0.00-0.07) x10^3/uL PT (9.9-12.5) SEC INR (2.0-3.5) APTT (25.6-32.8) SEC Sodium 142 (136-145) mmol/L Potassium 4.5 (3.5-5.1) mmol/L Chloride 106 (98-107) mmol/L Carbon Dioxide 24 (21-32) mmol/L Anion Gap 16.5 H (5-15) mmol/L BUN 56 H (7-18) mg/dL Creatinine 3.7 H* (0.70-1.30) mg/dL Est Cr Clr Drug Dosing TNP Estimated GFR (MDRD) 16 Glucose 95 (70-99) mg/dL Lactic Acid 2.0 (0.4-2.0) mmol/L Calcium 9.1 (8.5-10.1) mg/dL Corrected Calcium 9.7 (8.5-10.1) mg/dL Magnesium 1.7 L (1.8-2.4) mg/dL Total Bilirubin 0.4 (0.2-1.0) mg/dL AST 16 (15-37) U/L ALT 25 (16-63) U/L Alkaline Phosphatase 91 (46-116) U/L Troponin I High Sens 26 (<=76) ng/L C-Reactive Protein < 0.2 (<=0.9) mg/dL NT-Pro-B Natriuret Pep 2462 H (<=450) pg/mL Total Protein 7.2 (6.4-8.2) g/dL Albumin 3.2 L (3.4-5.0) g/dL Globulin 4.0 Albumin/Globulin Ratio 0.80 Procalcitonin 0.05 L (0.1-0.50) ng/mL Urine Color (YELLOW) Urine Appearance (CLEAR) Urine pH (5.0-8.0) Ur Specific [place] Urine Protein (NEGATIVE) mg/dL Urine Glucose (UA) (NEGATIVE) mg/dL Urine Ketones (NEGATIVE) mg/dL Urine Occult Blood (NEGATIVE) Urine Nitrite (NEGATIVE) Urine Bilirubin (NEGATIVE) Urine Urobilinogen (0.2) EU/dL Ur Leukocyte Esterase (NEGATIVE) U Hyaline Cast (Auto) Urine RBC (NOT SEEN) /HPF Urine WBC (NOT SEEN) /HPF Ur Squamous Epith Cells (NOT SEEN) /HPF Amorphous Sediment Urine Bacteria (NOT SEEN) /HPF Urine Mucus (NOT SEEN) /LPF Influenza Type A RNA (NEGATIVE) Influenza Type B RNA (NEGATIVE) SARS-CoV-2 RNA (ESEQUIEL) (NEGATIVE) 03/16/21 Range/Units 18:45 WBC (4.0-10.0) x10^3/uL RBC (4.5-6.0) x10^6/uL Hgb (14.0-18.0) g/dL Hct (40.0-52.0) % MCV (78.0-93.0) fL MCH (26.0-32.0) pg MCHC (32.0-36.0) g/dL RDW Coeff of Naz (10.0-15.0) % Plt Count (130-400) x10^3/uL Immature Gran % (Auto) (0.00-0.43) % Neut % (Auto) (50.0-80.0) % Lymph % (Auto) (25.0-50.0) % [place] % (Auto) (2.0-11.0) % Eos % (Auto) (0.0-4.0) % Baso % (Auto) (0.2-1.2) % Neut # (Auto) (1.8-7.7) x10^3/uL Lymph # (Auto) (1.0-4.8) x10^3/uL [place] # (Auto) (0.0-0.8) x10^3/uL Eos # (Auto) (0.0-0.5) x10^3/uL Baso # (Auto) (0.0-0.2) x10^3/uL Immature Gran # (Auto) (0.00-0.07) x10^3/uL PT (9.9-12.5) SEC INR (2.0-3.5) APTT (25.6-32.8) SEC Sodium (136-145) mmol/L Potassium (3.5-5.1) mmol/L Chloride (98-107) mmol/L Carbon Dioxide (21-32) mmol/L Anion Gap (5-15) mmol/L BUN (7-18) mg/dL Creatinine (0.70-1.30) mg/dL Est Cr Clr Drug Dosing Estimated GFR (MDRD) Glucose (70-99) mg/dL Lactic Acid (0.4-2.0) mmol/L Calcium (8.5-10.1) mg/dL Corrected Calcium (8.5-10.1) mg/dL Magnesium (1.8-2.4) mg/dL Total Bilirubin (0.2-1.0) mg/dL AST (15-37) U/L ALT (16-63) U/L Alkaline Phosphatase (46-116) U/L Troponin I High Sens (<=76) ng/L C-Reactive Protein (<=0.9) mg/dL NT-Pro-B Natriuret Pep (<=450) pg/mL Total Protein (6.4-8.2) g/dL Albumin (3.4-5.0) g/dL Globulin Albumin/Globulin Ratio Procalcitonin (0.1-0.50) ng/mL Urine Color Light yellow (YELLOW) Urine Appearance Cloudy H (CLEAR) Urine pH 7.0 (5.0-8.0) Ur Specific [place] 1.020 Urine Protein >=300 H (NEGATIVE) mg/dL Urine Glucose (UA) Negative (NEGATIVE) mg/dL Urine Ketones Negative (NEGATIVE) mg/dL Urine Occult Blood Trace-intact H (NEGATIVE) Urine Nitrite Negative (NEGATIVE) Urine Bilirubin Negative (NEGATIVE) Urine Urobilinogen 0.2 (0.2) EU/dL Ur Leukocyte Esterase Moderate H (NEGATIVE) U Hyaline Cast (Auto) Few Urine RBC 5-10 H (NOT SEEN) /HPF Urine WBC 40-50 H (NOT SEEN) /HPF Ur Squamous Epith Cells Few H (NOT SEEN) /HPF Amorphous Sediment Occasional Urine Bacteria Many H (NOT SEEN) /HPF Urine Mucus Few H (NOT SEEN) /LPF Influenza Type A RNA (NEGATIVE) Influenza Type B RNA (NEGATIVE) SARS-CoV-2 RNA (ESEQUIEL) (NEGATIVE) Meds: Medications Generic Name Dose Route Start Last Admin Trade Name Freq PRN Reason Stop Dose Admin Sodium Chloride 10 ml 03/16/21 16:54 Sodium Chloride 0.9% 10 Ml Syringe FLUSH ASDIRECTED PRN Keep Vein Open Discontinued Medications Generic Name Dose Route Start Last Admin Trade Name Freq PRN Reason Stop Dose Admin Acetaminophen 650 mg 03/16/21 19:14 03/16/21 19:41 Acetaminophen 650 Mg Supp RECTAL 03/16/21 19:15 650 mg NOW ONE Administration Ceftriaxone Sodium 1 gm 03/16/21 16:55 03/16/21 17:15 Ceftriaxone 1 Gm Vial IVPUSH 03/16/21 16:56 1 gm STAT ONE Administration Ertapenem 1 gm 03/16/21 20:16 Ertapenem 1 Gm Vial IVPUSH 03/16/21 20:17 STAT ONE Sodium Chloride 1,000 mls @ 999 mls/hr 03/16/21 17:10 Normal Saline IV 03/16/21 18:10 ONETIME ONE Departure - Departure Time of Disposition: 20:21 Disposition: Admitted As Inpatient 68 Condition: Good Clinical Impression: Confusion Fever Qualifiers: Fever type: unspecified Qualified Code(s): R50.9 - Fever, unspecified - Discharge Information Sepsis Event Note (ED) - Focused Exam Vital Signs: Vital Signs Temp Pulse Resp BP Pulse Ox 03/16/21 19:00 40.3 C H 03/16/21 16:45 40.4 C H 102 H 24 H 149/54 H 96 - Problem List & Annotations (1) Confusion SNOMED Code(s): 884538025 Code(s): R41.0 - DISORIENTATION, UNSPECIFIED Status: Acute Current Visit: Yes Annotation/Comment:: Head CT pending. Can be secondary to fever. (2) Fever SNOMED Code(s): 616660803 Code(s): R50.9 - FEVER, UNSPECIFIED Status: Acute Current Visit: Yes Annotation/Comment:: Lactic Acid=2.0, Neuts=93.1%. Fever 103-104.5 in ER. APAP given. Blood Cx pending. Abd/Pelvis CT to exclude other differentials. Suspect UTI, received Ceftriaxone in ER. Qualifiers: Fever type: unspecified Qualified Code(s): R50.9 - Fever, unspecified - Problem List Review Problem List Initiated/Reviewed/Updated: Yes - My Orders Last 24 Hours: My Active Orders 03/16/21 16:54 Sodium Chloride 0.9% [Saline Flush] 10 ml FLUSH ASDIRECTED PRN Blood Culture x2 Reflex Set [OM.PC] Stat Saline Lock Insert [OM.PC] Stat 03/16/21 17:09 CULTURE BLOOD [BC] Stat 03/16/21 17:15 CULTURE BLOOD [BC] Routine 03/16/21 18:29 Urinary Catheter Assessment [RC] ASDIRECTED 03/16/21 18:30 Mars Catheter Insertion [Insert Urinary Catheter] [OM.PC] Q24H 03/16/21 18:45 CULTURE URINE [RM] Stat 03/16/21 19:19 Abdomen Pelvis wo Cont [CT] Stat Head wo Cont [CT] Stat - Assessment/Plan Last 24 Hours: My Active Orders 03/16/21 16:54 Sodium Chloride 0.9% [Saline Flush] 10 ml FLUSH ASDIRECTED PRN Blood Culture x2 Reflex Set [OM.PC] Stat Saline Lock Insert [OM.PC] Stat 03/16/21 17:09 CULTURE BLOOD [BC] Stat 03/16/21 17:15 CULTURE BLOOD [BC] Routine 03/16/21 18:29 Urinary Catheter Assessment [RC] ASDIRECTED 03/16/21 18:30 Mars Catheter Insertion [Insert Urinary Catheter] [OM.PC] Q24H 03/16/21 18:45 CULTURE URINE [RM] Stat 03/16/21 19:19 Abdomen Pelvis wo Cont [CT] Stat Head wo Cont [CT] Stat Plan: Admit to Acute Care. Dr Anny Ribera to manage patient.
[2021-03-16] MEDS ORDERED: Sodium Chloride 0.9% 1,000 ML IV ONE (17:10)
[2021-03-16 17:47] LABS: PTT,PARTIAL THROMBOPLSTIN TIME 21.8 SEC (25.6-32.8)
[2021-03-16 18:00] LABS: ANION GAP 16.5 mmol/L (5-15); CHLORIDE,CL 106 mmol/L (98-107); SODIUM,NA 142 mmol/L (136-145)
[2021-03-16 18:16] LABS: CORONAVIRUS COVID-19 NAA NEGATIVE (NEGATIVE)
--- NOTE | 2021-03-16 18:41 | CR ---
[id number] RAD/RAD Chest PA or AP 1V EXAM: RAD Chest PA or AP 1V INDICATION: FEVER,CONFUSION. COMPARISON: April 24, 2020. DISCUSSION: Median sternotomy wires. Cardiomediastinal silhouette is normal in size and contour. No infiltrate, effusion, pneumothorax, or edema. IMPRESSION: No acute cardiopulmonary abnormality. Matias Wild DO 03/16/21 1950 Thank you for allowing us to participate in the care of your patient.
[2021-03-16] MEDS ORDERED: Acetaminophen 650 MG Supp RECTAL ONE (19:14)
[2021-03-16] MEDS ORDERED: Ertapenem 1 GM Vial IVPUSH ONE (20:16)
[2021-03-16] MEDS: Sodium Chloride 0.9% 10 ML Syringe FLUSH PRN (21:00)
[2021-03-16] MEDS ORDERED: Sodium Chloride 0.9% 1,000 ML IV SCH (21:30)
[2021-03-16] MEDS ORDERED: VANCOmycin 1.5 GM/300 ML 1.5 GM in Premix Bag 1 BAG IV ONE (21:37)
[2021-03-16] MEDS ORDERED: Acetaminophen 650 MG Supp RECTAL PRN (22:23)
[2021-03-16] MEDS: Metoprolol Tartrate 5 MG/5 ML SDV IVPUSH SCH (22:35)
--- NOTE | 2021-03-16 23:55 | HP ---
CHIEF COMPLAINT: Fever and confusion. HISTORY OF PRESENT ILLNESS: This is a well known 81-year-old male with multiple myeloma on treatment, Ninlaro, due to start a cycle again this week, who had an acute onset of fever and sounds like feeling cold and chilled around 3 to 4 p.m. They had been at a concert in [place] and he started to get a little sleepy and then his said he was a little bit more confused. She brought him straight back to [place] to the ER, and in fact his temp was a 104.7. He denies that he is in any pain. He is a little bit more alert when I saw him than when he presented to the ER. He is able to answer questions yes or no and open his eyes, but not really answer questions in more detail. denies that he has been otherwise sick with any cough or trouble breathing. He had his 3rd COVID dose on 02/28. His COVID and influenza testing were negative. His last admission back in August, he had orchitis and required meropenem as he does have a history of extended spectrum beta-lactamase resistant Klebsiella. He also has recurrent UTIs and self caths at home. ALLERGIES: Include iodinated contrast, shellfish, iodine. MEDICATIONS: Ninlaro 2.3 mg on days 1, 8, 15, and 28 each cycle; hydralazine 25 mg twice daily; copper tablets; Sonata; Zetia 10 mg daily; Tricor 48 mg daily; gabapentin 200 three times a day; Isordil 10 mg 3 times a day; Lokelma packets; allopurinol 100 daily; Lasix 20 mg as needed for swelling; bicarb 1300 t.i.d.; Nephlex daily; Flomax 0.4 at bedtime; D-mannose 1500 daily. PAST MEDICAL HISTORY: Includes multiple myeloma; coronary artery disease, status post CABG; history of diabetes, mostly in remission after weight loss from myeloma; congestive heart failure, EF 50%; chronic kidney disease; baseline creatinine over 3; recurrent UTIs with urinary tract stricture requiring self- catheterization; GERD; history of orchitis previously in 2015; obesity; iron- deficiency anemia; fatty liver disease; essential hypertension; gout; and gastritis. PAST SURGICAL HISTORY: He has had orchiectomy for infection in August. He has had a heart bypass. He has had bladder surgery for the strictures. He has had colonoscopies. FAMILY HISTORY: His father of heart disease. He had kidney disease and diabetes. Mother had heart disease. Both . SOCIAL HISTORY: He does smoke some cigars on occasion. Uses alcohol. He is . He is retired. REVIEW OF SYSTEMS: Unobtainable due to patient's clinical condition. PHYSICAL EXAMINATION: Vital Signs: Current temperature 101.6, T-max 104.7 at 4:45, pulse 102, blood pressure 157/75, respiratory rate 16, and O2 of 89 on room air, previously 96 on arrival. Did receive 1 L of fluids. General: He is in no acute distress. Heart: Regular rate and rhythm. S1, S2 with a murmur noted, which is not new. Lungs: Lung sounds are decreased with poor respiratory effort but no crackles, no wheezes. Abdomen: Positive bowel sounds. Soft, nondistended, nontender. Extremities: Warm and dry. Genitourinary: Scrotum area is examined. Groin folds, there is no redness, no wounds. He also has a Mars in place. Urine is yellow, no blood. Mental Status: He is somnolent. He is able to open his eyes, answer questions. Pupils are equal, red, reactive to light. HEENT: His tongue is dry, but he has no redness or irritation in his throat. IMAGING: Head CT, no acute findings. Chest x-ray, no infiltrates to suggest pneumonia. CT of the abdomen limited by no contrast due to renal failure and allergies. He did have a fluid collection in the left lower quadrant posterior to the bladder, possibly a diverticulum or abscess measuring 1.6 x 4.9 cm. EKG, he had sinus tachycardia with a right bundle-branch block. He has extensive ST changes with ST depression changes. White count 8.6, hemoglobin 10.9, platelets 128. INR 0.9. He actually had 93.1% neutrophils. Sodium 142, potassium 4.5, chloride 106, bicarb 24, BUN 56, creatinine 3.7, nearly identical to his August lab work. Glucose 95, lactic 2, calcium 9.1, magnesium 1.7, bilirubin 0.4, AST 16, ALT 25, alkaline phosphatase 91. Troponin 26. CRP less than 0.2. ESR was not done yet, the one I thought was from August. ProBNP 2462. Troponin is again normal 26. Albumin 3.2. Procalcitonin 0.05. Urine has 5 to 10 rbcs and 40 to 50 wbcs. Again negative COVID and influenza testing. ASSESSMENT AND PLAN: 1. Sepsis with fever and leukocytosis. Source is bladder infection. We will continue IV antibiotics with addition of ertapenem. He already got Rocephin in the ER and due to his severe symptoms, I have given him 1 dose of vancomycin empirically. 2. Chronic kidney disease, stage 4. Creatinine stable. 3. Multiple myeloma on treatments. 4. Confusion, likely due to the fever. Seems to be mentating or at least responding more now that it is coming down. We will continue supportive cares. 5. Heart murmur with known aortic regurgitation. Blood cultures are pending. 6. Coronary artery disease. He is not having any chest pain. I will place him on telemetry. 7. Essential hypertension. He is too somnolent to take medications. I will give him his Lopressor IV. 8. Chronic diastolic heart failure. Ejection fraction is 50%. He is not in any heart failure currently, but for his next liter of fluids, I will give him 100 mL/h and we will monitor in's and out's with his Mars. 9. Recurrent urinary tract infection and urethral stricture. Mars has already been placed. We will continue this for strict in's and out's. We have cultured blood and urine. We will continue IV antibiotics with ertapenem and vancomycin, IV fluids. was updated on the plan of care. The patient is a code level 3. For DVT prophylaxis, I will place him on heparin due to his renal function. MKA: 03/16/2021 22:22:22 MODL: 03/16/2021 23:51:15 /[id number]
[2021-03-17] MEDS: Metoprolol Tartrate 5 MG/5 ML SDV IVPUSH SCH (05:38)
[2021-03-17 07:39] LABS: ANION GAP 16.5 mmol/L (5-15)
--- NOTE | 2021-03-17 07:46 | CT ---
[id number] CT/CT Abdomen Pelvis WO IV Exam: CT Abdomen Pelvis WO IV Clinical Data: FEVER COMPARISON: NO PREVIOUS SIMILAR EXAM IS AVAILABLE FINDINGS: There are gallstones The gallbladder is not distended The small bowel is slightly distended. There is a Mars catheter in the urinary bladder. There is no free air There is diverticular disease of the sigmoid colon There is minimal stranding of the mesenteric fat surrounding the sigmoid colon. The appendix appears normal. There are bilateral renal cysts with no hydronephrosis. The liver and spleen, aorta, adrenals, and pancreas show no acute abnormalities There is a 2 cm hypodensity in the left lower quadrant on image 129, series 2. This could represent a small abscess. IMPRESSION: DIVERTICULOSIS WITH PROBABLE EARLY DIVERTICULITIS QUESTION OF SMALL LEFT LOWER QUADRANT ABSCESS CONSIDER FOLLOW-UP CAT SCAN WITH ORAL CONTRAST Galileo Tripathi MD 03/17/21 [id number] Thank you for allowing us to participate in the care of your patient.
--- NOTE | 2021-03-17 07:49 | CT ---
[id number] CT/CT Head WO IV EXAM: CT Head WO IV CLINICAL DATA: FEVER CHANGE IN MENTAL STATUS COMPARISON: No previous similar exam is available for comparison. FINDINGS: There is an air-fluid level in the left frontal sinus. There is opacification of the left maxillary sinus. The superior ophthalmic veins are prominent. There is no mass or mass effect There is no hemorrhage or hydrocephalus There are no extra-axial fluid collections Report provided at time of exam. IMPRESSION: Left frontal sinusitis Left maxillary sinus opacification Prominent superior ophthalmic vein bilaterally Consider follow-up contrast CT Question raised if there is any evidence to suggest cavernous sinus thrombosis Galileo Tripathi MD 03/17/21 0748 Thank you for allowing us to participate in the care of your patient.
[2021-03-17] MEDS: Sodium Chloride 0.9% 10 ML Syringe FLUSH PRN ×2 (08:59→18:25)
[2021-03-17] MEDS: Heparin Sodium 5,000 Units/ML Vial SUBCUT SCH ×2 (09:00→20:33)
[2021-03-17] MEDS ORDERED: Nitroglycerin 0.4 MG Tab.SL SL PRN (10:51)
[2021-03-17] MEDS ORDERED: Furosemide 20 MG Tab PO PRN (10:51)
[2021-03-17] MEDS ORDERED: BETAMETHASONE DIPROPIONATE TOP PRN (10:51)
[2021-03-17] MEDS ORDERED: Zolpidem 5 MG Tab PO PRN (11:19)
[2021-03-17] MEDS ORDERED: Cyanocobalamin (Vitamin B12) 1,000 MCG Tab PO SCH (11:30)
[2021-03-17] MEDS ORDERED: ISOSORBIDE DINITRATE 20 MG PO SCH (12:00)
[2021-03-17] MEDS: Allopurinol 100 MG Tab PO SCH (12:05)
[2021-03-17] MEDS: Isosorbide Dinitrate 10 MG Tab PO SCH ×2 (12:05→20:33)
[2021-03-17] MEDS: Calcium Carbonate/Vitamin D3 1250 MG-5 MCG Tab PO SCH (12:05)
[2021-03-17] MEDS: Sodium Bicarbonate 650 MG Tab PO SCH ×2 (12:06→20:35)
[2021-03-17] MEDS: Gabapentin 100 MG Cap PO SCH ×2 (12:06→20:35)
--- NOTE | 2021-03-17 12:18 | PN ---
Progress Note for SUE SIMMS Date: 03/17/2021 Room #: VM.212 SUBJECTIVE: This is hospital day #2 on a 81-year-old admitted with 104.7 fever and confusion last night with working diagnosis of severe sepsis which started approximately yesterday with chills, and his got him to the emergency room within hours. He was not very alert last night, answering only a few questions, but this morning, he is up. He is answering questions. He has already ate breakfast. He is denying any pain. He did say that he was having some increased urination during the night as his only change. He normally does use some straight cathing and had had recurrent urinary tract infections, but has not had one since around August when he actually had orchitis. He has not had any cough. No shortness of breath. He was given IV Rocephin, IV ertapenem, and IV vancomycin last night, and his fever did resolve. Mars catheter was placed which is draining well with no blood. CT was suspicious for a bladder abscess versus diverticulum. OBJECTIVE: Vital Signs: This morning, his temperature is 98.4, pulse 68, blood pressure 99/47, respiratory rate 18, and O2 of 95% on 2 L. General: He is in no acute distress. Heart: Regular rate and rhythm. S1 and S2. He does have a murmur. Lungs: Lung sounds are decreased, but no crackles. No wheezes. Abdomen: Positive bowel sounds. It is soft, nondistended, and nontender. Extremities: Warm and dry. No edema. Mental Status: He is alert, orientated x3, answering all questions appropriately. LABORATORY DATA: His lab work today did show his white count up to 15.5, it was normal on admission; hemoglobin 10, which is stable; platelets 112, which is stable. ESR is 77. His sodium is 143; potassium 4.5; chloride 110; bicarbonate 21; BUN 54; creatinine 3.7, stable since yesterday; and glucose 107. Lactic 1.1 on repeat. Calcium 8.6. Magnesium was 1.7 on admission. Bilirubin 0.4, AST 45, ALT 29, and alkaline phosphatase 64. CK 464. CRP up to 5.6. Albumin 2.8, decreased. Procalcitonin up to 31 from 0.05. Urine had 40 to 50 wbc's and is already growing gram-negative rods. Blood cultures are also showing 2/3 gram- negative rods at 7 a.m. this morning, so within probably about 12 hours. ASSESSMENT: 1. Gram-negative bacteremia with urine the likely source. He has had extended spectrum beta-lactamase Klebsiella in the past which ertapenem should cover, so we will continue with that 500 daily adjusted for renal function. He has actually had also E coli in his urine in the past as well. 2. Urinary retention due to some urethral strictures. For now, we will keep the Mars in place. 3. Multiple myeloma. He is due to start his treatment cycle again today. I have reached out to Oncology. The medication is actually not even available currently as it did not come in the mail. 4. Hyperglycemia in the past with diabetes. We are monitoring Accu-Cheks. Blood sugars are acceptable. He is on no medications for that. 5. Mildly elevated CK. He is given IV fluids. We have been holding his cholesterol medications. 6. Coronary artery disease. He has not had any chest pain. 7. Mild hypoxia with chronic diastolic heart failure. He has Lasix p.r.n. His last EF in May was 50%. We have stopped his IV fluids. He is eating and drinking on his own. 8. Essential hypertension. He will continue his home medications, but hold if any hypotension. 9. Anemia due to chronic kidney disease. 10.Chronic kidney disease, stage 4. His creatinine is at baseline. 11.For deep venous thrombosis prophylaxis, he is on heparin. PLAN: The patient will continue on acute cares with IV antibiotics to now include ertapenem. We will discontinue vancomycin due to gram negatives already in the urine. Anticipate he will need at least a couple days of IV antibiotics while awaiting culture and potentially even outpatient IV antibiotics due to his ESBL history. Overall, he is clinically improved, and we will continue to follow lab work with repeat procalcitonin also tomorrow. MKA: 03/17/2021 11:47:58 MODL: 03/17/2021 12:12:13 /[id number]
[2021-03-17] MEDS: Cyanocobalamin (Vitamin B12) 1,000 MCG Tab PO SCH (13:04)
[2021-03-17] MEDS: SODIUM ZIRCONIUM CYCLOSILICATE PO SCH (13:04)
[2021-03-17] MEDS: Aspirin 81 MG Tab.Chew PO SCH (18:21)
[2021-03-17] MEDS: Ertapenem 1 GM Vial IVPUSH SCH (18:22)
[2021-03-17] MEDS: Tamsulosin 0.4 MG Cap.ER PO SCH (20:33)
[2021-03-17] MEDS: hydrALAZINE 25 MG Tab PO SCH (20:34)
[2021-03-18 07:09] LABS: ANION GAP 16.3 mmol/L (5-15)
[2021-03-18] MEDS: Gabapentin 100 MG Cap PO SCH ×3 (07:57→20:15)
[2021-03-18] MEDS: valACYclovir 1,000 MG Tab PO SCH (07:57)
[2021-03-18] MEDS: Sodium Bicarbonate 650 MG Tab PO SCH ×3 (07:58→20:15)
[2021-03-18] MEDS: hydrALAZINE 25 MG Tab PO SCH ×2 (07:58→20:20)
[2021-03-18] MEDS: Zinc Sulfate 220 MG Cap PO SCH (08:01)
[2021-03-18] MEDS: Isosorbide Dinitrate 10 MG Tab PO SCH ×3 (08:01→20:20)
[2021-03-18] MEDS: Allopurinol 100 MG Tab PO SCH (08:02)
[2021-03-18] MEDS: Calcium Carbonate/Vitamin D3 1250 MG-5 MCG Tab PO SCH (08:03)
[2021-03-18] MEDS: Metoprolol Succinate 25 MG Tab.ER PO SCH (08:06)
[2021-03-18] MEDS: Heparin Sodium 5,000 Units/ML Vial SUBCUT SCH ×2 (08:09→20:16)
[2021-03-18] MEDS: CHONDROITIN PO SCH (08:12)
[2021-03-18] MEDS: COPPER GLUCONATE 2 MG PO SCH (08:12)
[2021-03-18] MEDS: GLUCOSAMINE PO SCH (08:12)
[2021-03-18] MEDS: D MANNOSE 1 GM PO SCH (08:12)
[2021-03-18] MEDS ORDERED: buPROPion 100 MG Tab.SR PO ONE (09:29)
[2021-03-18] MEDS: UBIDECARENONE 100 MG PO SCH (09:51)
[2021-03-18] MEDS: Folic Acid/Vitamin B Complex With C Cap PO SCH (09:51)
--- NOTE | 2021-03-18 10:14 | PN ---
Progress Note for SUE SIMMS Date: 03/18/2021 Room #: VM.212 SUBJECTIVE: This is hospital day #3 on a 81-year-old admitted with severe sepsis due to gram-negative bacteremia from a UTI. His urine culture did grow ESBL Klebsiella and E coli. His blood cultures were positive for E coli. He has been afebrile now with last T-max of 101.6 at 8 p.m. on 03/16. He has had some 99 fevers. He is having a little mild shortness of breath. He is requiring 1 L of oxygen. A little bit of a cough, but no pneumonia on his initial x-ray. He is not having any pain other than discomfort and not being able to rest well in the bed. He says he has been having some dreams like he is working on a computer. He has not gotten any of his Ambien. He has taken Sonata in the past at home. He is willing to try something here to help rest better. He also was very paranoid that his was sort of out to get him killed even though the discussion I had with him was related to the fact that his advance directive paperwork was on file in the clinic and if he were to deteriorate with his acute medical condition when he came in that there was no bed in the state to send him to. had reported he had been sort of more irritable even before he got sick. He does have a Mars catheter in place, it is draining well. He is off IV fluids. He is eating 100% of his meals. His urine output has been excellent, but he has not quite gotten out of bed yet. OBJECTIVE: Vital Signs: Today, his temperature is 98.5, pulse 70, blood pressure 142/66, respiratory rate 16, and O2 of 95 on 1 L. General: He is in no acute distress. Heart: Regular rate and rhythm with murmur. Lungs: Sounds are clear to auscultation bilaterally without crackles or wheezes. Abdomen: Nondistended. Positive bowel sounds. Soft, nontender. Extremities: Warm and dry. No edema. Mental Status: He is alert. He is orientated x3. He is conversing appropriately. LABORATORY DATA: Lab work shows white count 6.4, hemoglobin 9.5, platelets 104. Sodium 140; potassium 4.3; chloride 107; bicarb 21; BUN 51; creatinine 3.5, improved; glucose 112; calcium 9.2. Procalcitonin still 35.2. ASSESSMENT AND PLAN: 1. Escherichia coli bacteremia secondary to urinary tract infection. 2. Complicated urinary tract infection with Escherichia coli and Klebsiella extended spectrum beta-lactamase, on day #3 of ertapenem. 3. Severe sepsis due to bacteremia and urinary tract infection, resolving. 4. Multiple myeloma, due to start treatments, but recommended to wait until his infection improves. 5. Delirium due to his acute infection, probably underlying depression. He is agreeable to try something. I will give him a dose of Wellbutrin this morning. I will also have Seroquel p.r.n. tonight instead of the Ambien. 6. Urinary retention with urethral strictures. Mars catheter in place. We will likely remove tomorrow for a voiding trial before discharge. He also does self-cath at home. 7. Hyperglycemia and history of diabetes. Blood sugars have been excellent. 8. Mildly elevated CK. He has been on cholesterol pills. This was likely due to his acute infection. We will repeat a level tomorrow and restart medications if able. 9. Coronary artery disease. 10.Cough and mild hypoxia. We will get a chest x-ray today. 11.Chronic diastolic heart failure. His Lasix is p.r.n. His ejection fraction is 50%. We will check a proBNP. 12.Essential hypertension, controlled. 13.Anemia due to chronic kidney disease. 14.Chronic kidney disease, stage 4. Creatinine is at baseline. 15.Deep venous thrombosis prophylaxis, on heparin. PLAN: Patient will continue with acute cares. He will continue on IV ertapenem. He will need at least a 7-day course. I anticipate his discharge will be as soon as tomorrow, and he may need to just return for outpatient IV antibiotics. We will continue to redirect him and focus on mood, and I will update his again later today. Patient does elect to be a code level 1. MKA: 03/18/2021 09:35:26 MODL: 03/18/2021 10:06:33 /[id number]
--- NOTE | 2021-03-18 11:25 | CR ---
[id number] RAD/RAD Chest PA And Lateral EXAM: RAD Chest PA And Lateral INDICATION: COUGH. COMPARISON: March 16, 2021. DISCUSSION: Cardiomegaly. Central vascular enlargement suggesting pulmonary hypertension without current evidence of edema. Hyperinflation compatible chronic obstructive pulmonary disease. No effusions. Sternotomy. IMPRESSION: 1. No acute findings. Miguel Guevara MD 03/18/21 1124 Thank you for allowing us to participate in the care of your patient.
[2021-03-18] MEDS: Magnesium Oxide 400 MG Tab PO SCH (11:43)
[2021-03-18] MEDS: SODIUM ZIRCONIUM CYCLOSILICATE PO SCH (11:58)
[2021-03-18] MEDS: Ertapenem 1 GM Vial IVPUSH SCH (19:11)
[2021-03-18] MEDS: Aspirin 81 MG Tab.Chew PO SCH (19:11)
[2021-03-18] MEDS ORDERED: QUEtiapine 25 MG Tab PO SCH (20:00)
[2021-03-18] MEDS: Tamsulosin 0.4 MG Cap.ER PO SCH (20:15)
[2021-03-18] MEDS: Sodium Chloride 0.9% 10 ML Syringe FLUSH PRN (20:18)
[2021-03-19] MEDS ORDERED: ALPRAZolam 0.5 MG Tab PO ONE (01:12)
[2021-03-19 07:41] LABS: ANION GAP 15.8 mmol/L (5-15)
[2021-03-19] MEDS: Heparin Sodium 5,000 Units/ML Vial SUBCUT SCH (08:10)
[2021-03-19] MEDS: valACYclovir 1,000 MG Tab PO SCH (08:12)
[2021-03-19] MEDS: Calcium Carbonate/Vitamin D3 1250 MG-5 MCG Tab PO SCH (08:12)
[2021-03-19] MEDS: Metoprolol Succinate 25 MG Tab.ER PO SCH (08:12)
[2021-03-19] MEDS: Cyanocobalamin (Vitamin B12) 1,000 MCG Tab PO SCH (08:13)
[2021-03-19] MEDS: Zinc Sulfate 220 MG Cap PO SCH (08:13)
[2021-03-19] MEDS: hydrALAZINE 25 MG Tab PO SCH (08:13)
[2021-03-19] MEDS: Gabapentin 100 MG Cap PO SCH ×2 (08:13→11:29)
[2021-03-19] MEDS: Magnesium Oxide 400 MG Tab PO SCH (08:14)
[2021-03-19] MEDS: Sodium Bicarbonate 650 MG Tab PO SCH ×2 (08:14→11:29)
[2021-03-19] MEDS: Allopurinol 100 MG Tab PO SCH (08:14)
[2021-03-19] MEDS: Isosorbide Dinitrate 10 MG Tab PO SCH ×2 (08:15→11:30)
[2021-03-19] MEDS: Folic Acid/Vitamin B Complex With C Cap PO SCH (08:16)
[2021-03-19] MEDS: CHONDROITIN PO SCH (08:16)
[2021-03-19] MEDS: GLUCOSAMINE PO SCH (08:16)
[2021-03-19] MEDS: D MANNOSE 1 GM PO SCH (08:16)
[2021-03-19] MEDS: UBIDECARENONE 100 MG PO SCH (08:17)
[2021-03-19] MEDS ORDERED: buPROPion 100 MG Tab.SR PO SCH (09:15)
[2021-03-19] MEDS: COPPER GLUCONATE 2 MG PO SCH (09:47)
[2021-03-19] MEDS: Ertapenem 1 GM Vial IVPUSH SCH (11:32)
[2021-03-19] MEDS: SODIUM ZIRCONIUM CYCLOSILICATE PO SCH (11:33)
[2021-03-19] MEDS: Aspirin 81 MG Tab.Chew PO SCH (17:03)
[2021-03-19] MEDS ORDERED: QUEtiapine 25 MG Tab PO PRN (19:06)
[2021-03-19] MEDS ORDERED: Sodium Chloride 0.9% 1,000 ML IV SCH (19:15)
--- NOTE | 2021-03-19 19:41 | PN ---
Progress Note for SUE SIMMS Date: 03/19/2021 Room #: VM.212 SUBJECTIVE: This is hospital day #4 on a 81-year-old admitted with severe sepsis and gram-negative bacteremia with E. coli, and an E. coli and ESBL Klebsiella UTI. The patient has been afebrile since admission when he was 104.7. His white count did normalize. His procalcitonin is coming down. However, he was a little bit more agitated last night. He was started on Wellbutrin in the morning. He was very much wanting to go home. He got some Seroquel at bedtime, and then he got a dose of Xanax during the night, and he is completely sedated and sleeping this morning. I went back to see him later with his , and he was more alert. He did take his pills this morning but did not eat much today. He was able to answer questions appropriately, and decision was made that he was not medically stable for discharge. The patient was agreeable to this. He did say he just sort of hurt all over. He did have that elevated CK level and his cholesterol medications have been on hold. He has been getting IV Invanz, day #4. He will need that for a 1-week course. Catheter has been draining well. He normally straight caths at home and does have a history of recurrent UTIs. OBJECTIVE: Vital Signs: Currently, his temperature is 99, pulse 60, blood pressure 112/57, respiratory rate 20, and O2 of 94% on room air. General: He is in no acute distress. Heart: Regular rate and rhythm. S1 and S2 with murmur. Lungs: Sounds are clear to auscultation bilaterally without crackles or wheezes. Abdomen: Positive bowel sounds. Soft, nondistended, and nontender. Extremities: Warm and dry. No edema. Mental Status: He is alert. He recognizes his . He answers yes or no, but he does fall back to sleep quite easily. He does not have underlying sleep apnea. He has been here before, and he has been quite sleepy like this as well. LABORATORY DATA: Lab work did show him to have a white count of 8.9, hemoglobin 10.2, platelets 107, and ESR 105. Sodium 139; potassium 4.8; chloride 106; bicarb 22; BUN 48; creatinine 3.3, which has improved; and glucose 116. Magnesium 2. CK down to 358. ProBNP 162,081. Yesterday, x-ray did not show any pneumonia, some pulmonary vascular congestion, but he was able to be weaned off oxygen, and procalcitonin down to 25. ASSESSMENT: 1. Severe sepsis secondary to Escherichia coli bacteremia. 2. Escherichia coli bacteremia secondary to urinary tract infection. 3. Complicated urinary tract infection with Escherichia coli and Klebsiella extended spectrum beta lactamase on day #4 ertapenem, we will plan for 1- week course. 4. Multiple myeloma, due to start treatments, but awaiting at least until the end of his antibiotic course, discussed with Oncology. 5. Delirium due to his acute infection with increased sedation today, likely due to the Seroquel and Xanax he received last night. Therefore, we will place him on 6.25 p.r.n. of Seroquel and avoid further benzos. 6. Mood disorder. We had started him on Wellbutrin yesterday morning, however, this was just SR, and I do not think this contributed to his agitation, as he had already been having more difficulty with sleeping. He got one dose yesterday morning. We will hold tonight's dose and resume likely for discharge. 7. Obesity. 8. Essential hypertension. 9. Chronic diastolic heart failure. He is not currently needing any Lasix, but it is available p.r.n. 10.Deep venous thrombosis prophylaxis, on heparin. 11.Chronic kidney disease, stage 4. 12.Anemia of chronic kidney disease. 13.History of coronary artery disease and coronary artery bypass grafting. 14.Elevated CK. We will start IV fluids. We will continue holding his cholesterol pills. 15.Hyperglycemia with history of diabetes. 16.Urinary retention with urethral stricture. The Mars will remain in place until he is returning home and straight cathing. PLAN: The patient will continue acute cares with IV ertapenem. We will restart IV fluids 125 per hour, and hopefully he will be able to be discharged home tomorrow. Otherwise, he should work with therapies in case he is in need of a swing bed stay. MKA: 03/19/2021 19:10:40 MODL: 03/19/2021 19:34:51 /[id number]
[2021-03-20] MEDS: hydrALAZINE 25 MG Tab PO SCH ×3 (00:11→19:39)
[2021-03-20] MEDS: Sodium Bicarbonate 650 MG Tab PO SCH ×4 (00:11→19:39)
[2021-03-20] MEDS: Tamsulosin 0.4 MG Cap.ER PO SCH ×2 (00:11→19:39)
[2021-03-20] MEDS: Gabapentin 100 MG Cap PO SCH ×4 (00:11→19:38)
[2021-03-20] MEDS: Heparin Sodium 5,000 Units/ML Vial SUBCUT SCH ×3 (00:12→21:35)
[2021-03-20] MEDS: Isosorbide Dinitrate 10 MG Tab PO SCH ×4 (00:13→19:39)
[2021-03-20 07:36] LABS: ANION GAP 14.7 mmol/L (5-15)
[2021-03-20] MEDS: valACYclovir 1,000 MG Tab PO SCH (08:54)
[2021-03-20] MEDS: Allopurinol 100 MG Tab PO SCH (08:55)
[2021-03-20] MEDS: Metoprolol Succinate 25 MG Tab.ER PO SCH (08:55)
[2021-03-20] MEDS: Calcium Carbonate/Vitamin D3 1250 MG-5 MCG Tab PO SCH (08:55)
[2021-03-20] MEDS: Magnesium Oxide 400 MG Tab PO SCH (08:55)
[2021-03-20] MEDS: Zinc Sulfate 220 MG Cap PO SCH (08:56)
[2021-03-20] MEDS: CHONDROITIN PO SCH (08:56)
[2021-03-20] MEDS: COPPER GLUCONATE 2 MG PO SCH (08:56)
[2021-03-20] MEDS: D MANNOSE 1 GM PO SCH (08:56)
[2021-03-20] MEDS: GLUCOSAMINE PO SCH (08:56)
[2021-03-20] MEDS: UBIDECARENONE 100 MG PO SCH (08:57)
[2021-03-20] MEDS: Folic Acid/Vitamin B Complex With C Cap PO SCH (08:57)
--- NOTE | 2021-03-20 09:53 | PN ---
Progress Note for SUE SIMMS Date: 03/20/2021 Room #: VM.212 SUBJECTIVE: The patient is more alert today. He is still calm. He had gotten quite confused with some Ativan that had been given to him the evening before when he was admitted on 03/16/2021. He had come in with fever and confusion and he is known to have chronic kidney disease, so he was placed on IV antibiotics of ertapenem and vancomycin on admission. The plan is for the patient to eventually go home. He was on heparin as he was not as alert. OBJECTIVE: Vital Signs: His temperature is 36.7, pulse 68, blood pressure is 165/67, his sats are 95 on room air, respiratory rate is 18. General: The patient is calmly lying in bed, somewhat quiet. He will answer slowly to questions. Nurse says he is much better, improved with mentation. Heart: Regular rate. Lungs: Clear. Abdomen: Soft. LABORATORY DATA: To note, his lab today shows his white blood cell count 5.7, hemoglobin has dropped to 9.5, segs are 74, lymphs 10, eosinophils 12. Venous blood gases showed pH 7.43, venous pCO2 of 34, venous PO2 of 66, bicarb 22, sats are 94. His sodium is 138, potassium 4.7, creatinine is stable at 3.2, BUN is stable at 51, glucose is 107, calcium 10.6. LFTs are normal. CK is greatly improved to 167 from 358. Procalcitonin is improved to 15.2. IMPRESSION: 1. Confusion, improving. 2. Severe sepsis secondary to Escherichia coli bacteremia. 3. Urinary tract infection. 4. Multiple myeloma. 5. Chronic kidney disease, stage 4, stable. 6. Mood disorder. PLAN: We will have the patient be up, moving around. He is still on ertapenem today and is to be on this at discharge as well per Dr Jagjit Ribera.. Hopefully the patient can be discharged home tomorrow. We will also saline lock his IV fluids right now. GM03/20/2021 09:19:36 MODL: 03/20/2021 09:47:52 /[id number] NADEGE
[2021-03-20] MEDS: Ertapenem 1 GM Vial IVPUSH SCH (12:27)
[2021-03-20] MEDS: SODIUM ZIRCONIUM CYCLOSILICATE PO SCH (12:28)
[2021-03-20] MEDS: Aspirin 81 MG Tab.Chew PO SCH (17:32)
[2021-03-20] MEDS: Sodium Chloride 0.9% 10 ML Syringe FLUSH PRN (19:38)
[2021-03-21 07:33] LABS: ANION GAP 14.4 mmol/L (5-15)
[2021-03-21] MEDS: valACYclovir 1,000 MG Tab PO SCH (08:45)
[2021-03-21] MEDS: Cyanocobalamin (Vitamin B12) 1,000 MCG Tab PO SCH (08:45)
[2021-03-21] MEDS: Zinc Sulfate 220 MG Cap PO SCH (08:45)
[2021-03-21] MEDS: Magnesium Oxide 400 MG Tab PO SCH (08:46)
[2021-03-21] MEDS: Metoprolol Succinate 25 MG Tab.ER PO SCH (08:46)
[2021-03-21] MEDS: Calcium Carbonate/Vitamin D3 1250 MG-5 MCG Tab PO SCH (08:47)
[2021-03-21] MEDS: Allopurinol 100 MG Tab PO SCH (08:47)
[2021-03-21] MEDS: Sodium Bicarbonate 650 MG Tab PO SCH (08:47)
[2021-03-21] MEDS: Isosorbide Dinitrate 10 MG Tab PO SCH (08:48)
[2021-03-21] MEDS: hydrALAZINE 25 MG Tab PO SCH (08:48)
[2021-03-21] MEDS: Gabapentin 100 MG Cap PO SCH (08:49)
[2021-03-21] MEDS: D MANNOSE 1 GM PO SCH (08:49)
[2021-03-21] MEDS: UBIDECARENONE 100 MG PO SCH (08:50)
[2021-03-21] MEDS: GLUCOSAMINE PO SCH (08:50)
[2021-03-21] MEDS: CHONDROITIN PO SCH (08:50)
[2021-03-21] MEDS: Folic Acid/Vitamin B Complex With C Cap PO SCH (08:50)
[2021-03-21] MEDS: Heparin Sodium 5,000 Units/ML Vial SUBCUT SCH (08:52)
[2021-03-21] MEDS: COPPER GLUCONATE 2 MG PO SCH (08:56)
--- NOTE | 2021-03-21 09:31 | PN ---
Progress Note for SUE SIMMS Date: 03/21/2021 Room #: VM.212 SUBJECTIVE: Subjectively, he is much more alert, clear. He was able to go home. Because of the type of infection he has which is gram-negative bacteremia, he needs to have a total of 1 week course of antibiotics. Otherwise, patient feels able to go home. No concerns have been noted overnight. OBJECTIVE: Vital Signs: His temperature is 36.6, pulse is 60. His blood pressure is down to 129/60. Respiratory rate 20. Saturations are 95%. General: He is alert. Heart: Regular rate and rhythm. Lungs: Clear to auscultation. Abdomen: Soft. labs were stable. IMPRESSION: 1. Severe sepsis secondary to E coli bacteremia. 2. Confusion, resolved. 3. Urinary tract infection. 4. Multiple myeloma. 5. Chronic kidney disease stage 4. 6. Mood disorder. PLAN: The patient will be discharged home. He will receive outpatient infusions of Invanz 0.5 mg IV daily until to include 03/24. He is to follow up to see Dr. Anny Ribera in a week's time in the clinic for recheck. GM03/21/2021 08:30:12 MODL: 03/21/2021 09:25:33 /[id number] NADEGE
[2021-03-21] MEDS: Ertapenem 1 GM Vial IVPUSH SCH (10:34)
[2021-03-21 11:50] VITALS: BP 102/48; PULSE 67
--- NOTE | 2021-03-21 13:05 | DISCH ---
DISCHARGE DIAGNOSES: 1. Severe sepsis secondary to Escherichia coli bacteremia. 2. Escherichia coli bacteremia secondary to urinary tract infection. 3. Complicated urinary tract infection with Escherichia coli and Klebsiella. 4. Multiple myeloma. 5. Delirium. 6. Mood disorder. 7. Obesity. 8. Hypertension. 9. Chronic diastolic heart failure. 10.Chronic kidney disease, stage 4. 11.Anemia of chronic disease. 12.History of coronary artery disease. 13.Elevated CK. 14.Hyperglycemia. 15.Urinary retention with urethral stricture. SUMMARY OF ADMIT HISTORY AND PHYSICAL: The patient presented on 03/16/2021 to the emergency department, was found to be having a fever. He suddenly became confused. The patient has been getting dialysis. He was found in the ER to have a temperature of 40.3, pulse 102, respirations 24, blood pressure 149/54, sats 96. Lab showed white blood cell count 8.6, hemoglobin 10.9, platelets 128, 93 segs, 4 lymphocytes, INR 0.9. Negative for influenza A and B. Negative for COVID. Sodium 142, potassium 4.5, creatinine 3.7, GFR 16, BUN 56, glucose 95, lactic acid 2.0, magnesium 1.7. LFTs normal. Troponin normal at 26. CRP less than 2. ProBNP 2462. Procalcitonin 0.05. Urinalysis, cloudy protein, moderate leukocyte esterase, 5 to 10 red blood cells, 40 to 50 white blood cells, many bacteria. The patient received a shot of Rocephin as well as Invanz 1 g IV hydration. SUMMARY OF HOSPITAL COURSE: He was admitted to Acute Care under Dr. Anny Ribera's service. He was on heparin for DVT prophylaxis due to his renal function. The patient is code level 3. The patient on 03/17/2021 was noted to be a little more alert, answering questions. He normally does straight cathing at home, but a Mars was placed due to comfort cares as well as infection. He did have a CT of his abdomen which was suspicious for bladder abscess versus diverticulum. He had vancomycin also started on admission, but this was discontinued. Then, the patient had some restlessness and concerns about his mood. He had switched to becoming code level 1. He did have some difficulty sleeping, so he was started on Wellbutrin again. The patient had gotten overly sedated from some Ativan that was given to help him sleep. The patient at home apparently had been on some Seroquel. By 03/20/2021, he was a little bit more awake, but needed to have him up walking around. By 03/21/2021, he was back to his baseline self. Cultures did come back positive that were taken on 03/16/2021, came back positive on 03/18/2021 showing both Klebsiella pneumonia and E. coli that was both sensitive to ertapenem, that was a urine culture, and then blood cultures came back positive for E. coli. Because of concern with E. coli, he would require 7 days of IV antibiotics and it showed sensitivity to ertapenem. Lab summary showed that his white blood cell count otherwise stayed normal. His hemoglobin at the time of discharge on 03/21/2021 was 10.3. The patient did have venous blood gases on 03/20/2021 which showed pH 7.43, pCO2 of 34, venous PO2 of 66, venous bicarb 22, sats were 94%. The patient's sodium on 03/21/2021 was 138, potassium 4.5, creatinine stable at 3.3, BUN 54, bicarb 24, glucose 107, his CRP was 10.1 up from less than 0.2 on day of admission. The patient's procalcitonin level had been 0.05 on admission, had maxed out on 03/18/2021 up to 35.3 and then had improved by 03/20/2021 to 15.24. The patient's ammonia level had been checked, it was 35 on 03/20/2021. The patient's magnesium had improved to 2.0 by 03/19/2021. RADIOLOGY SUMMARY: Chest x-ray; no acute pulmonary abnormality. Repeat chest x- ray done on 03/18/2021 showed no acute findings. CT of head done on 03/16/2021 came back showing air-fluid level in left frontal sinus, opacified left maxillary sinus. No mass or mass effect noted in brain. No hemorrhage or hydrocephalus. No extra fluid collection. It said consider followup contrast CT for prominent superior ophthalmic veins bilaterally. Abdominal CT done on 03/16/2021 came back showing diverticulosis with probable early diverticulitis, questionable small left lower quadrant abscess. Consider followup CT scan with oral contrast. MEDICATIONS: At the time of discharge will be Diprosone 0.05% cream 1 applicator topical daily as needed, vitamin D 98775 units every 7 days, Flomax 0.4 mg at bedtime, vitamin B- complex 1 pill daily, nitroglycerin 0.4 sublingual q.5 minutes x3 p.r.n., Valtrex 500 mg 1 pill daily, Lasix 40 mg 1 pill daily as needed, aspirin 81 mg daily, Sonata 5 mg at bedtime as needed, allopurinol 100 mg 1 pill daily, metoprolol succinate 25 mg 1 pill daily, fenofibrate 48 mg 1 pill daily, Zetia 10 mg 1 pill daily, Neurontin 200 mg 1 pill 3 times a day, vitamin B12 1000 mcg every Wednesday, Wednesday, Wednesday, Lokelma 10 g daily, D- mannose 1 g powder 1500 mg daily, vitamin C 500 mg daily, vitamin E 400 units daily, CoQ 100 mg 1 pill daily, calcium with vitamin D 600/800 one pill daily. Hydralazine 25 mg, takes half a pill twice a day. Sodium bicarb 650 mg tablets, he takes 2 pills 3 times a day. Copper gluconate 2 mg daily, isosorbide dinitrate 10 mg 1 pill 3 times a day, glucosamine chondroitin 1 pill daily. Ninlaro 2.5 mg capsules, takes 1 pill daily as directed. Zinc 30 mg 1 pill daily. Ertapenem will be 0.5 mg IV push daily at noon through 03/24/2021, then stop. Magnesium 400 mg 1 pill daily, Wellbutrin SR 100 mg 1 pill twice a day. The patient is to follow up with Dr. Anny Ribera in a weeks' time in the clinic for recheck. The patient's code level status at the time of discharge was full code. Over 30 min time was spent in doing discharge planning for pt. GM03/21/2021 11:40:21 MODL: 03/21/2021 12:53:11 /[id number] NADEGE
== END 2021-03-21 11:05 | disposition home or self-care (01) | DRG 871 ==
LOC: VM.ED 16:36 → VM.MS 19:22
PROVIDERS: ADMIT Internal Medicine; ATTEND Internal Medicine
DX: R41.0 Disorientation, unspecified (principal); R50.9 Fever, unspecified; A41.51 Sepsis due to Escherichia coli [E. coli]; G93.41 Metabolic encephalopathy; N18.2 Chronic kidney disease, stage 2 (mild); I50.9 Heart failure, unspecified; N39.0 Urinary tract infection, site not specified; C90.00 Multiple myeloma not having achieved remission; I13.0 Hypertensive heart and chronic kidney disease with heart failure and stage 1 through stage 4 chronic kidney disease, or unspecified chronic kidney disease; I50.32 Chronic diastolic (congestive) heart failure; N18.4 Chronic kidney disease, stage 4 (severe); I42.9 Cardiomyopathy, unspecified; F05 Delirium due to known physiological condition; R65.20 Severe sepsis without septic shock; A41.59 Other Gram-negative sepsis; F39 Unspecified mood [affective] disorder; E66.9 Obesity, unspecified; D63.1 Anemia in chronic kidney disease; Z20.822 Contact with and (suspected) exposure to COVID-19; N35.919 Unspecified urethral stricture, male, unspecified site; R33.9 Retention of urine, unspecified; E11.22 Type 2 diabetes mellitus with diabetic chronic kidney disease; E11.65 Type 2 diabetes mellitus with hyperglycemia; I35.1 Nonrheumatic aortic (valve) insufficiency; I25.10 Atherosclerotic heart disease of native coronary artery without angina pectoris; E78.00 Pure hypercholesterolemia, unspecified; I73.9 Peripheral vascular disease, unspecified; G47.30 Sleep apnea, unspecified; K21.9 Gastro-esophageal reflux disease without esophagitis; K76.0 Fatty (change of) liver, not elsewhere classified; E11.42 Type 2 diabetes mellitus with diabetic polyneuropathy; M10.9 Gout, unspecified; D47.2 Monoclonal gammopathy; Z95.1 Presence of aortocoronary bypass graft; Z91.041 Radiographic dye allergy status; Z91.013 Allergy to seafood; Z79.82 Long term (current) use of aspirin; Z79.899 Other long term (current) drug therapy; I25.2 Old myocardial infarction; Z68.37 Body mass index [BMI] 37.0-37.9, adult; Z88.8 Allergy status to other drugs, medicaments and biological substances
CPT/HCPCS: 0240U; 36415; 51702; 70450; 71045; 71046; 74176; 80048; 80053; 81001; 82140; 82550; 82803; 82947; 83605; 83735; 83880; 84145; 84484; 85025; 85610; 85652; 85730; 86140; 87040; 87077; 87086; 87088; 87186; 93005; 93010; 94760; 96374; 97161-GP; 99284; 99285-25; A9270-GY; J0696; J1335; J1644; J3370; J7030

== ENCOUNTER 2021-06-05 15:35 | Inpatient (IN) | payer MEDICARE, OTHER ==
[2021-06-05] MEDS ORDERED: Sodium Chloride 0.9% 10 ML Syringe FLUSH PRN (15:46)
[2021-06-05] MEDS ORDERED: cefTRIAXone 2 GM Vial IVPUSH ONE (16:39)
[2021-06-05] MEDS ORDERED: Lactated Ringers 1,000 ML IV ONE ×2 (16:43→17:12)
[2021-06-05 16:47] LABS: ANION GAP 18.5 mmol/L (5-15); CHLORIDE,CL 99 mmol/L (98-107); SODIUM,NA 136 mmol/L (136-145)
[2021-06-05] MEDS ORDERED: Aspirin 81 MG Tab.Chew PO ONE (16:55)
[2021-06-05] MEDS ORDERED: Piperacillin/Tazobactam 2.25 GM in Sodium Chloride 0.9% 100 ML IV STA (17:09)
[2021-06-05] MEDS ORDERED: Lactated Ringers 1,000 ML IV SCH (18:15)
[2021-06-05] MEDS ORDERED: Non-Formulary Medication 1 Each (Betamethasone Dipropionate [Diprosone 0.05% Crm] 15 GM Tu TOP PRN (19:49)
[2021-06-05] MEDS ORDERED: Nitroglycerin 0.4 MG Tab.SL SL PRN (19:49)
[2021-06-05] MEDS ORDERED: Furosemide 20 MG Tab PO PRN (19:49)
[2021-06-05] MEDS ORDERED: IXAZOMIB CITRATE 2.3 MG PO SCH (20:00)
[2021-06-05] MEDS: Lactated Ringers 1,000 ML IV SCH (20:20)
[2021-06-05] MEDS: hydrALAZINE 25 MG Tab PO SCH (20:41)
[2021-06-05] MEDS: Isosorbide Dinitrate 10 MG Tab PO SCH (20:43)
[2021-06-05] MEDS: Tamsulosin 0.4 MG Cap.ER PO SCH (20:43)
[2021-06-05] MEDS: Gabapentin 100 MG Cap PO SCH (20:43)
[2021-06-05] MEDS: buPROPion 100 MG Tab.SR PO SCH (20:44)
[2021-06-05] MEDS: Sodium Bicarbonate 650 MG Tab PO SCH (20:44)
[2021-06-05] MEDS: Heparin Sodium 5,000 Units/ML Vial SUBCUT SCH (20:45)
[2021-06-05] MEDS: Acetaminophen 325 MG Tab PO PRN (20:46)
[2021-06-06] MEDS: Lactated Ringers 1,000 ML IV SCH (03:41)
[2021-06-06] MEDS: Piperacillin/Tazobactam 3.375 GM in Sodium Chloride 0.9% 100 ML IV SCH ×2 (06:16→17:43)
[2021-06-06] MEDS: Acetaminophen 325 MG Tab PO PRN ×3 (06:24→21:56)
[2021-06-06] MEDS: Isosorbide Dinitrate 10 MG Tab PO SCH ×3 (07:31→19:38)
[2021-06-06] MEDS: Gabapentin 100 MG Cap PO SCH ×3 (07:31→19:39)
[2021-06-06] MEDS: hydrALAZINE 25 MG Tab PO SCH ×2 (07:32→19:39)
[2021-06-06] MEDS: Calcium Carbonate/Vitamin D3 1250 MG-5 MCG Tab PO SCH (07:33)
[2021-06-06] MEDS: buPROPion 100 MG Tab.SR PO SCH ×2 (07:34→19:39)
[2021-06-06] MEDS: Metoprolol Succinate 25 MG Tab.ER PO SCH (07:34)
[2021-06-06] MEDS: Allopurinol 100 MG Tab PO SCH (07:34)
[2021-06-06] MEDS: Ezetimibe 10 MG Tab PO SCH (07:34)
[2021-06-06] MEDS: Sodium Bicarbonate 650 MG Tab PO SCH ×3 (07:34→19:38)
[2021-06-06] MEDS: Ascorbic Acid 500 MG Tab PO SCH (07:34)
[2021-06-06] MEDS: valACYclovir 1,000 MG Tab PO SCH (07:37)
[2021-06-06] MEDS: FENOFIBRATE NANOCRYSTALLIZED 48 MG PO SCH (07:40)
[2021-06-06] MEDS: VITAMIN E PO SCH (07:41)
[2021-06-06] MEDS: [UNRECOGNIZED DRUG - REMARK] PO SCH (07:41)
[2021-06-06 07:46] LABS: ANION GAP 15.4 mmol/L (5-15)
[2021-06-06] MEDS ORDERED: Ergocalciferol (Vitamin D2) 1.25 MG Cap PO SCH (09:00)
[2021-06-06] MEDS: Cyanocobalamin (Vitamin B12) 1,000 MCG Tab PO SCH (09:23)
[2021-06-06] MEDS: Heparin Sodium 5,000 Units/ML Vial SUBCUT SCH ×2 (09:24→20:19)
[2021-06-06] MEDS ORDERED: Zolpidem 5 MG Tab PO PRN (12:53)
[2021-06-06] MEDS: [UNRECOGNIZED DRUG - OTHER] PO SCH (13:57)
[2021-06-06] MEDS: UBIDECARENONE 300 MG PO SCH (13:57)
[2021-06-06] MEDS: SODIUM ZIRCONIUM CYCLOSILICATE PO SCH (17:01)
[2021-06-06] MEDS: Aspirin 81 MG Tab.Chew PO SCH (17:41)
[2021-06-06] MEDS: Tamsulosin 0.4 MG Cap.ER PO SCH (19:39)
[2021-06-07] MEDS: Piperacillin/Tazobactam 3.375 GM in Sodium Chloride 0.9% 100 ML IV SCH (05:33)
[2021-06-07] MEDS: Sodium Bicarbonate 650 MG Tab PO SCH ×3 (07:40→20:28)
[2021-06-07] MEDS: buPROPion 100 MG Tab.SR PO SCH ×2 (07:40→20:28)
[2021-06-07] MEDS: Calcium Carbonate/Vitamin D3 1250 MG-5 MCG Tab PO SCH (07:40)
[2021-06-07] MEDS: hydrALAZINE 25 MG Tab PO SCH ×2 (07:40→20:28)
[2021-06-07] MEDS: Gabapentin 100 MG Cap PO SCH ×3 (07:40→20:28)
[2021-06-07] MEDS: Ezetimibe 10 MG Tab PO SCH (07:40)
[2021-06-07] MEDS: Allopurinol 100 MG Tab PO SCH (07:41)
[2021-06-07] MEDS: Isosorbide Dinitrate 10 MG Tab PO SCH ×3 (07:41→20:28)
[2021-06-07] MEDS: Ascorbic Acid 500 MG Tab PO SCH (07:41)
[2021-06-07] MEDS: Metoprolol Succinate 25 MG Tab.ER PO SCH (07:41)
[2021-06-07] MEDS: valACYclovir 1,000 MG Tab PO SCH (07:42)
[2021-06-07] MEDS: VITAMIN E PO SCH (07:48)
[2021-06-07] MEDS: [UNRECOGNIZED DRUG - OTHER] PO SCH (07:49)
[2021-06-07] MEDS: FENOFIBRATE NANOCRYSTALLIZED 48 MG PO SCH (07:49)
[2021-06-07] MEDS: [UNRECOGNIZED DRUG - REMARK] PO SCH (07:49)
[2021-06-07] MEDS: UBIDECARENONE 300 MG PO SCH (07:50)
[2021-06-07 08:48] LABS: ANION GAP 16.1 mmol/L (5-15)
[2021-06-07] MEDS: Heparin Sodium 5,000 Units/ML Vial SUBCUT SCH ×2 (09:03→20:29)
[2021-06-07] MEDS ORDERED: diphenhydrAMINE 25 MG Cap PO PRN (11:23)
[2021-06-07] MEDS: Acetaminophen 325 MG Tab PO PRN ×2 (11:41→18:20)
[2021-06-07] MEDS: SODIUM ZIRCONIUM CYCLOSILICATE PO SCH (11:42)
[2021-06-07] MEDS: D MANNOSE 500 MG PO SCH (11:48)
[2021-06-07 12:21] LABS: ANION GAP 15.1 mmol/L (5-15)
[2021-06-07] MEDS: Meropenem 500 MG in Sodium Chloride 0.9% 100 ML IV SCH (13:05)
[2021-06-07] MEDS: Aspirin 81 MG Tab.Chew PO SCH (17:40)
[2021-06-07] MEDS: Tamsulosin 0.4 MG Cap.ER PO SCH (20:28)
[2021-06-08] MEDS: Meropenem 500 MG in Sodium Chloride 0.9% 100 ML IV SCH ×2 (00:58→12:07)
[2021-06-08] MEDS: buPROPion 100 MG Tab.SR PO SCH ×2 (07:43→20:29)
[2021-06-08] MEDS: valACYclovir 1,000 MG Tab PO SCH (07:43)
[2021-06-08] MEDS: Calcium Carbonate/Vitamin D3 1250 MG-5 MCG Tab PO SCH (07:44)
[2021-06-08] MEDS: Ezetimibe 10 MG Tab PO SCH (07:44)
[2021-06-08] MEDS: Gabapentin 100 MG Cap PO SCH ×3 (07:44→20:29)
[2021-06-08] MEDS: hydrALAZINE 25 MG Tab PO SCH ×2 (07:45→20:29)
[2021-06-08] MEDS: Sodium Bicarbonate 650 MG Tab PO SCH ×3 (07:45→20:29)
[2021-06-08] MEDS: Metoprolol Succinate 25 MG Tab.ER PO SCH (07:45)
[2021-06-08] MEDS: Ascorbic Acid 500 MG Tab PO SCH (07:45)
[2021-06-08] MEDS: Isosorbide Dinitrate 10 MG Tab PO SCH ×3 (07:46→20:29)
[2021-06-08] MEDS: Allopurinol 100 MG Tab PO SCH (07:46)
[2021-06-08] MEDS: VITAMIN E PO SCH (07:48)
[2021-06-08] MEDS: UBIDECARENONE 300 MG PO SCH (07:48)
[2021-06-08] MEDS: [UNRECOGNIZED DRUG - OTHER] PO SCH (07:49)
[2021-06-08] MEDS: [UNRECOGNIZED DRUG - REMARK] PO SCH (07:49)
[2021-06-08] MEDS: FENOFIBRATE NANOCRYSTALLIZED 48 MG PO SCH (07:50)
[2021-06-08] MEDS: D MANNOSE 500 MG PO SCH (07:51)
[2021-06-08 08:48] LABS: ANION GAP 14.1 mmol/L (5-15)
[2021-06-08] MEDS: Heparin Sodium 5,000 Units/ML Vial SUBCUT SCH ×2 (09:30→20:30)
[2021-06-08] MEDS: SODIUM ZIRCONIUM CYCLOSILICATE PO SCH (12:05)
[2021-06-08] MEDS ORDERED: Non-Formulary Medication 1 Each PO PRN (16:50)
[2021-06-08] MEDS: Acetaminophen 325 MG Tab PO PRN (17:18)
[2021-06-08] MEDS: Aspirin 81 MG Tab.Chew PO SCH (17:18)
[2021-06-08] MEDS: Tamsulosin 0.4 MG Cap.ER PO SCH (20:29)
[2021-06-09] MEDS: Meropenem 500 MG in Sodium Chloride 0.9% 100 ML IV SCH ×2 (00:11→12:51)
[2021-06-09] MEDS: Gabapentin 100 MG Cap PO SCH ×3 (07:44→20:04)
[2021-06-09] MEDS: Isosorbide Dinitrate 10 MG Tab PO SCH ×3 (07:44→20:03)
[2021-06-09] MEDS: Calcium Carbonate/Vitamin D3 1250 MG-5 MCG Tab PO SCH (07:44)
[2021-06-09] MEDS: Metoprolol Succinate 25 MG Tab.ER PO SCH (07:45)
[2021-06-09] MEDS: hydrALAZINE 25 MG Tab PO SCH ×2 (07:45→20:00)
[2021-06-09] MEDS: Ascorbic Acid 500 MG Tab PO SCH (07:45)
[2021-06-09] MEDS: Ezetimibe 10 MG Tab PO SCH (07:45)
[2021-06-09] MEDS: buPROPion 100 MG Tab.SR PO SCH ×2 (07:45→20:00)
[2021-06-09] MEDS: Allopurinol 100 MG Tab PO SCH (07:45)
[2021-06-09] MEDS: Sodium Bicarbonate 650 MG Tab PO SCH ×3 (07:45→20:04)
[2021-06-09] MEDS: valACYclovir 1,000 MG Tab PO SCH (07:46)
[2021-06-09] MEDS: UBIDECARENONE 300 MG PO SCH (07:51)
[2021-06-09] MEDS: VITAMIN E PO SCH (07:52)
[2021-06-09] MEDS: [UNRECOGNIZED DRUG - OTHER] PO SCH (07:52)
[2021-06-09] MEDS: FENOFIBRATE NANOCRYSTALLIZED 48 MG PO SCH (07:52)
[2021-06-09] MEDS: [UNRECOGNIZED DRUG - REMARK] PO SCH (07:53)
[2021-06-09] MEDS: D MANNOSE 500 MG PO SCH (07:54)
[2021-06-09] MEDS: Acetaminophen 325 MG Tab PO PRN ×2 (09:06→14:08)
[2021-06-09] MEDS: Heparin Sodium 5,000 Units/ML Vial SUBCUT SCH ×2 (09:06→20:00)
[2021-06-09] MEDS: Cyanocobalamin (Vitamin B12) 1,000 MCG Tab PO SCH (10:02)
[2021-06-09] MEDS ORDERED: Lidocaine 4% 1 each Patch TOP PRN (10:03)
[2021-06-09] MEDS ORDERED: LIDOCAINE PATCH TRDERM PRN (10:32)
[2021-06-09] MEDS: SODIUM ZIRCONIUM CYCLOSILICATE PO SCH (13:18)
[2021-06-09] MEDS: Furosemide 20 MG Tab PO SCH (14:08)
[2021-06-09] MEDS: Aspirin 81 MG Tab.Chew PO SCH (17:09)
[2021-06-09] MEDS: Tamsulosin 0.4 MG Cap.ER PO SCH (20:03)
[2021-06-10] MEDS: Meropenem 500 MG in Sodium Chloride 0.9% 100 ML IV SCH ×2 (00:58→12:24)
[2021-06-10] MEDS: valACYclovir 1,000 MG Tab PO SCH (07:27)
[2021-06-10] MEDS: hydrALAZINE 25 MG Tab PO SCH (07:28)
[2021-06-10] MEDS: buPROPion 100 MG Tab.SR PO SCH (07:28)
[2021-06-10] MEDS: Isosorbide Dinitrate 10 MG Tab PO SCH ×2 (07:28→12:22)
[2021-06-10] MEDS: Ascorbic Acid 500 MG Tab PO SCH (07:29)
[2021-06-10] MEDS: Furosemide 20 MG Tab PO SCH (07:29)
[2021-06-10] MEDS: Allopurinol 100 MG Tab PO SCH (07:29)
[2021-06-10] MEDS: Calcium Carbonate/Vitamin D3 1250 MG-5 MCG Tab PO SCH (07:29)
[2021-06-10] MEDS: Ezetimibe 10 MG Tab PO SCH (07:29)
[2021-06-10] MEDS: Sodium Bicarbonate 650 MG Tab PO SCH ×2 (07:29→12:23)
[2021-06-10] MEDS: Gabapentin 100 MG Cap PO SCH ×2 (07:29→12:23)
[2021-06-10] MEDS: Metoprolol Succinate 25 MG Tab.ER PO SCH (07:29)
[2021-06-10] MEDS: [UNRECOGNIZED DRUG - OTHER] PO SCH (07:31)
[2021-06-10] MEDS: [UNRECOGNIZED DRUG - REMARK] PO SCH (07:31)
[2021-06-10] MEDS: VITAMIN E PO SCH (07:32)
[2021-06-10] MEDS: FENOFIBRATE NANOCRYSTALLIZED 48 MG PO SCH (07:32)
[2021-06-10] MEDS: UBIDECARENONE 300 MG PO SCH (07:33)
[2021-06-10] MEDS: D MANNOSE 500 MG PO SCH (07:34)
[2021-06-10] MEDS ORDERED: Furosemide 20 MG Tab PO SCH (09:11)
[2021-06-10] MEDS: Heparin Sodium 5,000 Units/ML Vial SUBCUT SCH (09:30)
[2021-06-10] MEDS: SODIUM ZIRCONIUM CYCLOSILICATE PO SCH (12:04)
[2021-06-10 14:04] VITALS: BP 139/56; PULSE 64
== END 2021-06-10 16:17 | disposition home or self-care (01) | DRG 698 ==
LOC: VM.ED 15:35 → VM.MS 18:39
PROVIDERS: ADMIT Family Medicine; ATTEND Family Medicine
DX: T83.511A Infection and inflammatory reaction due to indwelling urethral catheter, initial encounter (principal); A41.9 Sepsis, unspecified organism; I21.4 Non-ST elevation (NSTEMI) myocardial infarction; G93.40 Encephalopathy, unspecified; A41.51 Sepsis due to Escherichia coli [E. coli]; A41.59 Other Gram-negative sepsis; R65.20 Severe sepsis without septic shock; G93.41 Metabolic encephalopathy; I50.9 Heart failure, unspecified; N17.9 Acute kidney failure, unspecified; Z88.8 Allergy status to other drugs, medicaments and biological substances; N18.4 Chronic kidney disease, stage 4 (severe); Z91.02 Food additives allergy status; C90.00 Multiple myeloma not having achieved remission; I50.32 Chronic diastolic (congestive) heart failure; I13.0 Hypertensive heart and chronic kidney disease with heart failure and stage 1 through stage 4 chronic kidney disease, or unspecified chronic kidney disease; Z20.822 Contact with and (suspected) exposure to COVID-19; Z66 Do not resuscitate; I73.9 Peripheral vascular disease, unspecified; D63.1 Anemia in chronic kidney disease; R33.9 Retention of urine, unspecified; E11.22 Type 2 diabetes mellitus with diabetic chronic kidney disease; E11.40 Type 2 diabetes mellitus with diabetic neuropathy, unspecified; D47.2 Monoclonal gammopathy; Z95.1 Presence of aortocoronary bypass graft; N35.919 Unspecified urethral stricture, male, unspecified site; I25.10 Atherosclerotic heart disease of native coronary artery without angina pectoris; E78.00 Pure hypercholesterolemia, unspecified; K21.9 Gastro-esophageal reflux disease without esophagitis; G47.30 Sleep apnea, unspecified; K76.0 Fatty (change of) liver, not elsewhere classified; M10.9 Gout, unspecified; Z91.013 Allergy to seafood; Z91.041 Radiographic dye allergy status; Z79.82 Long term (current) use of aspirin; Z79.899 Other long term (current) drug therapy; I25.2 Old myocardial infarction
CPT/HCPCS: 36415; 70450; 71045; 72020; 72070; 72128; 80048; 80053; 80307; 81001; 82140; 82550; 83605; 83735; 83880; 84100; 84145; 84484; 85025; 86140; 87040; 87086; 87088; 87186; 93005; 96365; 96375; 97162-GP; 97164-GP; 99285; 99285-25; A9270-GY; J0696; J1644; J2185; J2543; J7120; U0002

== ENCOUNTER 2021-07-24 03:50 | Emergency (ER) | payer MEDICARE, OTHER ==
[2021-07-24 04:09] VITALS: BP 147/58; PULSE 68
[2021-07-24 05:15] LABS: CHLORIDE,CL 105 mmol/L (98-107); SODIUM,NA 137 mmol/L (136-145)
[2021-07-24 05:20] LABS: ANION GAP 17.1 mmol/L (5-15)
[2021-07-24] MEDS ORDERED: Vancomycin 125 MG Cap PO STA (05:31)
[2021-07-24] MEDS ORDERED: Loperamide 2 MG Cap PO ONE (05:31)
== END 2021-07-24 06:01 | disposition home or self-care (01) ==
LOC: VM.ED 03:50
DX: R19.7 Diarrhea, unspecified (principal); I25.119 Atherosclerotic heart disease of native coronary artery with unspecified angina pectoris; E11.42 Type 2 diabetes mellitus with diabetic polyneuropathy; E11.22 Type 2 diabetes mellitus with diabetic chronic kidney disease; I13.0 Hypertensive heart and chronic kidney disease with heart failure and stage 1 through stage 4 chronic kidney disease, or unspecified chronic kidney disease; N18.4 Chronic kidney disease, stage 4 (severe); I50.9 Heart failure, unspecified; I25.2 Old myocardial infarction; M10.9 Gout, unspecified; E66.9 Obesity, unspecified; Z68.36 Body mass index [BMI] 36.0-36.9, adult; Z91.041 Radiographic dye allergy status; Z91.013 Allergy to seafood; Z91.048 Other nonmedicinal substance allergy status; Z88.8 Allergy status to other drugs, medicaments and biological substances; Z79.82 Long term (current) use of aspirin; Z79.899 Other long term (current) drug therapy
CPT/HCPCS: 36415; 80053; 83605; 83735; 85025; 86140; 99284; A9270-GY

== ENCOUNTER 2022-05-07 08:37 | Inpatient (IN) | payer MEDICARE, OTHER ==
[2022-05-07] MEDS ORDERED: Ergocalciferol (Vitamin D2) 1.25 MG Cap PO SCH (09:00)
[2022-05-07] MEDS ORDERED: Sodium Chloride 0.9% 1,000 ML IV SCH (09:15)
[2022-05-07 09:24] LABS: PTT,PARTIAL THROMBOPLSTIN TIME 27.3 SEC (20.5-30.9)
[2022-05-07 09:31] LABS: CHLORIDE,CL 95 mmol/L (98-107); SODIUM,NA 136 mmol/L (136-145)
[2022-05-07 09:39] LABS: ANION GAP 15.6 mmol/L (5-15); ESTIMATED GFR 11 mL/min (>=60)
[2022-05-07] MEDS ORDERED: cefTRIAXone 1 GM Vial IVPUSH ONE (10:06)
[2022-05-07 10:12] LABS: CORONAVIRUS COVID-19 NAA NEGATIVE (NEGATIVE); RESPIRATORY SYNCYTIAL VIR NAA NEGATIVE (NEGATIVE)
[2022-05-07] MEDS ORDERED: Meropenem 500 MG in Sodium Chloride 0.9% 100 ML IV SCH (10:30)
[2022-05-07] MEDS ORDERED: Meropenem 500 MG in Sodium Chloride 0.9% 100 ML IV ONE (10:45)
[2022-05-07] MEDS: Furosemide 40 MG/4 ML VIAL IV SCH ×2 (13:43→15:34)
[2022-05-07] MEDS ORDERED: Nitroglycerin 0.4 MG Tab.SL SL PRN (14:06)
[2022-05-07] MEDS ORDERED: V PO PRN (14:06)
[2022-05-07] MEDS ORDERED: Acetaminophen 325 MG Tab PO ONE (14:06)
[2022-05-07] MEDS: Gabapentin 100 MG Cap PO SCH ×2 (16:40→20:31)
[2022-05-07] MEDS: Isosorbide Dinitrate 10 MG Tab PO SCH ×2 (16:40→20:32)
[2022-05-07] MEDS: D-Mannose 500 MG Cap PO SCH ×2 (16:40→21:29)
[2022-05-07] MEDS: Sodium Bicarbonate 650 MG Tab PO SCH ×3 (16:40→20:31)
[2022-05-07] MEDS ORDERED: IXAZOMIB CITRATE 2.3 MG PO SCH (17:30)
[2022-05-07] MEDS ORDERED: Furosemide 40 MG/4 ML VIAL IV SCH (18:00)
[2022-05-07] MEDS: Aspirin 81 MG Tab.Chew PO SCH (18:26)
[2022-05-07] MEDS: oxyCODONE 5 MG Tab PO PRN (18:30)
[2022-05-07] MEDS: Acetaminophen 325 MG Tab PO PRN (18:32)
[2022-05-07] MEDS: buPROPion 100 MG Tab.SR PO SCH (20:31)
[2022-05-07] MEDS: Tamsulosin 0.4 MG Cap.ER PO SCH (20:32)
[2022-05-07] MEDS: Sodium Chloride 0.9% 10 ML Syringe FLUSH PRN (20:34)
[2022-05-07] MEDS: Meropenem 500 MG in Sodium Chloride 0.9% 100 ML IV SCH (23:13)
[2022-05-08 07:12] LABS: ANION GAP 13.9 mmol/L (5-15)
[2022-05-08] MEDS: Sodium Bicarbonate 650 MG Tab PO SCH ×4 (08:11→20:32)
[2022-05-08] MEDS: Cyanocobalamin (Vitamin B12) 1,000 MCG Tab PO SCH (08:11)
[2022-05-08] MEDS: Allopurinol 100 MG Tab PO SCH (08:12)
[2022-05-08] MEDS: Isosorbide Dinitrate 10 MG Tab PO SCH ×3 (08:12→20:32)
[2022-05-08] MEDS: hydrALAZINE 25 MG Tab PO SCH (08:12)
[2022-05-08] MEDS: buPROPion 100 MG Tab.SR PO SCH ×2 (08:12→20:32)
[2022-05-08] MEDS: Calcium Carbonate/Vitamin D3 1250 MG-5 MCG Tab PO SCH (08:12)
[2022-05-08] MEDS: Gabapentin 100 MG Cap PO SCH ×3 (08:13→20:31)
[2022-05-08] MEDS: valACYclovir 1,000 MG Tab PO SCH (08:13)
[2022-05-08] MEDS: Ezetimibe 10 MG Tab PO SCH (08:13)
[2022-05-08] MEDS: FENOFIBRATE 48 MG PO SCH (08:15)
[2022-05-08] MEDS ORDERED: Metoprolol Succinate 25 MG Tab.ER PO SCH (09:00)
[2022-05-08] MEDS: Bumetanide 2.5 MG/10 ML MDV IVPUSH SCH (09:30)
[2022-05-08] MEDS: Sodium Chloride 0.9% 10 ML Syringe FLUSH PRN (09:31)
[2022-05-08] MEDS ORDERED: Zolpidem 5 MG Tab PO PRN (09:59)
[2022-05-08] MEDS: D-Mannose 500 MG Cap PO SCH ×3 (10:09→20:36)
[2022-05-08] MEDS: Meropenem 500 MG in Sodium Chloride 0.9% 100 ML IV SCH ×2 (11:54→23:48)
[2022-05-08] MEDS: Polyethylene Glycol 3350 Powder 17 GM Packet PO SCH (11:55)
[2022-05-08] MEDS: Aspirin 81 MG Tab.Chew PO SCH (17:38)
[2022-05-08] MEDS: Tamsulosin 0.4 MG Cap.ER PO SCH (20:32)
[2022-05-08] MEDS: oxyCODONE 5 MG Tab PO PRN (22:20)
[2022-05-09] MEDS: hydrALAZINE 25 MG Tab PO SCH (08:17)
[2022-05-09] MEDS: Isosorbide Dinitrate 10 MG Tab PO SCH ×3 (08:18→20:33)
[2022-05-09] MEDS: Gabapentin 100 MG Cap PO SCH ×3 (08:18→20:32)
[2022-05-09] MEDS: valACYclovir 1,000 MG Tab PO SCH (08:19)
[2022-05-09] MEDS: Calcium Carbonate/Vitamin D3 1250 MG-5 MCG Tab PO SCH (08:19)
[2022-05-09] MEDS: Allopurinol 100 MG Tab PO SCH (08:19)
[2022-05-09] MEDS: buPROPion 100 MG Tab.SR PO SCH ×2 (08:19→20:32)
[2022-05-09] MEDS: D-Mannose 500 MG Cap PO SCH ×3 (08:20→20:34)
[2022-05-09] MEDS: Sodium Bicarbonate 650 MG Tab PO SCH ×4 (08:20→20:32)
[2022-05-09] MEDS: Bumetanide 2.5 MG/10 ML MDV IVPUSH SCH (08:20)
[2022-05-09] MEDS: FENOFIBRATE 48 MG PO SCH (08:22)
[2022-05-09] MEDS: Polyethylene Glycol 3350 Powder 17 GM Packet PO SCH (08:24)
[2022-05-09] MEDS: Sodium Chloride 0.9% 10 ML Syringe FLUSH PRN ×3 (08:26→20:36)
[2022-05-09] MEDS: Ezetimibe 10 MG Tab PO SCH (08:34)
[2022-05-09] MEDS: Sodium Zirconium Cyclosilicate 10 GM Packet PO SCH (12:13)
[2022-05-09] MEDS: Meropenem 500 MG in Sodium Chloride 0.9% 100 ML IV SCH ×2 (12:14→22:49)
[2022-05-09] MEDS: Aspirin 81 MG Tab.Chew PO SCH (17:27)
[2022-05-09] MEDS: Tamsulosin 0.4 MG Cap.ER PO SCH (20:33)
[2022-05-10 08:40] LABS: ANION GAP 14.4 mmol/L (5-15)
[2022-05-10] MEDS: Calcium Carbonate/Vitamin D3 1250 MG-5 MCG Tab PO SCH (09:29)
[2022-05-10] MEDS: hydrALAZINE 25 MG Tab PO SCH (09:29)
[2022-05-10] MEDS: Ezetimibe 10 MG Tab PO SCH (09:29)
[2022-05-10] MEDS: Gabapentin 100 MG Cap PO SCH ×3 (09:29→20:06)
[2022-05-10] MEDS: Sodium Bicarbonate 650 MG Tab PO SCH ×4 (09:29→20:08)
[2022-05-10] MEDS: Allopurinol 100 MG Tab PO SCH (09:29)
[2022-05-10] MEDS: Isosorbide Dinitrate 10 MG Tab PO SCH ×3 (09:30→20:04)
[2022-05-10] MEDS: Polyethylene Glycol 3350 Powder 17 GM Packet PO SCH (09:30)
[2022-05-10] MEDS: buPROPion 100 MG Tab.SR PO SCH ×2 (09:30→20:07)
[2022-05-10] MEDS: FENOFIBRATE 48 MG PO SCH (09:31)
[2022-05-10] MEDS: D-Mannose 500 MG Cap PO SCH ×3 (09:31→20:08)
[2022-05-10] MEDS: valACYclovir 1,000 MG Tab PO SCH (09:39)
[2022-05-10] MEDS: Sodium Chloride 0.9% 10 ML Syringe FLUSH PRN ×3 (09:41→23:09)
[2022-05-10] MEDS: Bumetanide 2.5 MG/10 ML MDV IVPUSH SCH (09:45)
[2022-05-10] MEDS: Sodium Zirconium Cyclosilicate 10 GM Packet PO SCH (11:35)
[2022-05-10] MEDS: Meropenem 500 MG in Sodium Chloride 0.9% 100 ML IV SCH ×2 (11:39→23:07)
[2022-05-10] MEDS: Aspirin 81 MG Tab.Chew PO SCH (17:34)
[2022-05-10] MEDS: Tamsulosin 0.4 MG Cap.ER PO SCH (20:07)
[2022-05-11] MEDS: Acetaminophen 325 MG Tab PO PRN (00:01)
[2022-05-11] MEDS: Calcium Carbonate/Vitamin D3 1250 MG-5 MCG Tab PO SCH (08:15)
[2022-05-11] MEDS: buPROPion 100 MG Tab.SR PO SCH (08:18)
[2022-05-11] MEDS: Sodium Bicarbonate 650 MG Tab PO SCH (08:18)
[2022-05-11] MEDS: Cyanocobalamin (Vitamin B12) 1,000 MCG Tab PO SCH (08:19)
[2022-05-11] MEDS: Gabapentin 100 MG Cap PO SCH (08:19)
[2022-05-11] MEDS: Allopurinol 100 MG Tab PO SCH (08:19)
[2022-05-11] MEDS: valACYclovir 1,000 MG Tab PO SCH (08:20)
[2022-05-11] MEDS: Polyethylene Glycol 3350 Powder 17 GM Packet PO SCH (08:21)
[2022-05-11] MEDS: Isosorbide Dinitrate 10 MG Tab PO SCH (08:23)
[2022-05-11] MEDS: Ezetimibe 10 MG Tab PO SCH (08:24)
[2022-05-11] MEDS: hydrALAZINE 25 MG Tab PO SCH (08:25)
[2022-05-11] MEDS: Bumetanide 2.5 MG/10 ML MDV IVPUSH SCH (08:29)
[2022-05-11] MEDS: D-Mannose 500 MG Cap PO SCH (08:29)
[2022-05-11] MEDS: FENOFIBRATE 48 MG PO SCH (08:29)
[2022-05-11 09:09] LABS: ANION GAP 15.5 mmol/L (5-15)
[2022-05-11 11:05] VITALS: BP 152/48; PULSE 48
[2022-05-11] MEDS: Meropenem 500 MG in Sodium Chloride 0.9% 100 ML IV SCH (11:44)
[2022-05-11] MEDS: Sodium Zirconium Cyclosilicate 10 GM Packet PO SCH (12:42)
== END 2022-05-11 13:10 | disposition short-term general hospital (02) | DRG 698 ==
LOC: VM.ED 08:37 → VM.MS 10:27 → UNDODISIN 05-11 13:10
PROVIDERS: ADMIT Internal Medicine; ATTEND Internal Medicine
DX: T83.518A Infection and inflammatory reaction due to other urinary catheter, initial encounter (principal); I50.33 Acute on chronic diastolic (congestive) heart failure; N17.9 Acute kidney failure, unspecified; C90.00 Multiple myeloma not having achieved remission; I13.0 Hypertensive heart and chronic kidney disease with heart failure and stage 1 through stage 4 chronic kidney disease, or unspecified chronic kidney disease; N39.0 Urinary tract infection, site not specified; N18.4 Chronic kidney disease, stage 4 (severe); Z20.822 Contact with and (suspected) exposure to COVID-19; E11.22 Type 2 diabetes mellitus with diabetic chronic kidney disease; E78.00 Pure hypercholesterolemia, unspecified; I25.10 Atherosclerotic heart disease of native coronary artery without angina pectoris; K21.9 Gastro-esophageal reflux disease without esophagitis; E78.5 Hyperlipidemia, unspecified; F17.210 Nicotine dependence, cigarettes, uncomplicated; D63.1 Anemia in chronic kidney disease; K59.09 Other constipation; E11.42 Type 2 diabetes mellitus with diabetic polyneuropathy; R33.9 Retention of urine, unspecified; B96.20 Unspecified Escherichia coli [E. coli] as the cause of diseases classified elsewhere; E87.5 Hyperkalemia; Z79.82 Long term (current) use of aspirin; Z79.899 Other long term (current) drug therapy; Z95.1 Presence of aortocoronary bypass graft; Z88.8 Allergy status to other drugs, medicaments and biological substances; Z91.013 Allergy to seafood; Z98.41 Cataract extraction status, right eye; Z98.42 Cataract extraction status, left eye; I25.2 Old myocardial infarction
CPT/HCPCS: 0241U; 36415; 51702; 71045; 80048; 80053; 81001; 82947; 83605; 83735; 83880; 84100; 84484; 85025; 85610; 85730; 86140; 87040; 87086; 87088; 87186; 93005; 93010; 96360; 97162-GP; 97165-GO; 97535-GO; 99285; 99285-25; A9270-GY; J1940; J2185; J3490; J7030; U0002

== ENCOUNTER 2022-07-10 15:05 | Emergency (ER) | payer MEDICARE, OTHER ==
[2022-07-10 16:19] LABS: ANION GAP 10.1 mmol/L (5-15)
[2022-07-10 17:56] VITALS: BP 150/64; PULSE 81
== END 2022-07-10 18:11 | disposition short-term general hospital (02) ==
LOC: VM.ED 15:05
DX: I13.2 Hypertensive heart and chronic kidney disease with heart failure and with stage 5 chronic kidney disease, or end stage renal disease (principal); E11.22 Type 2 diabetes mellitus with diabetic chronic kidney disease; E11.42 Type 2 diabetes mellitus with diabetic polyneuropathy; N18.9 Chronic kidney disease, unspecified; I50.9 Heart failure, unspecified; R62.7 Adult failure to thrive; I25.119 Atherosclerotic heart disease of native coronary artery with unspecified angina pectoris; E78.00 Pure hypercholesterolemia, unspecified; I25.2 Old myocardial infarction; M10.9 Gout, unspecified; E66.9 Obesity, unspecified; Z68.30 Body mass index [BMI] 30.0-30.9, adult; Z91.041 Radiographic dye allergy status; Z91.013 Allergy to seafood; Z88.8 Allergy status to other drugs, medicaments and biological substances; Z79.82 Long term (current) use of aspirin; Z79.899 Other long term (current) drug therapy
CPT/HCPCS: 36415; 71101-LT; 74018; 80053; 81001; 85025; 87086; 87088; 93005; 93010; 99285

== ENCOUNTER 2022-08-05 15:16 | Emergency (ER) | payer MEDICARE, OTHER ==
[2022-08-05 17:09] LABS: ANION GAP 14.5 mmol/L (5-15)
[2022-08-05 18:07] VITALS: BP 122/58; PULSE 72
== END 2022-08-05 17:38 | disposition home or self-care (01) ==
LOC: VM.ED 15:16 → SUPCPDRO 15:16 → VM.ED 17:38
DX: R55 Syncope and collapse (principal); S00.01XA Abrasion of scalp, initial encounter; I13.2 Hypertensive heart and chronic kidney disease with heart failure and with stage 5 chronic kidney disease, or end stage renal disease; E11.22 Type 2 diabetes mellitus with diabetic chronic kidney disease; N18.6 End stage renal disease; I50.9 Heart failure, unspecified; I25.119 Atherosclerotic heart disease of native coronary artery with unspecified angina pectoris; E78.00 Pure hypercholesterolemia, unspecified; I25.2 Old myocardial infarction; K21.9 Gastro-esophageal reflux disease without esophagitis; E11.42 Type 2 diabetes mellitus with diabetic polyneuropathy; E66.9 Obesity, unspecified; Z68.29 Body mass index [BMI] 29.0-29.9, adult; Z99.2 Dependence on renal dialysis; Z91.041 Radiographic dye allergy status; Z91.013 Allergy to seafood; Z91.018 Allergy to other foods; Z88.8 Allergy status to other drugs, medicaments and biological substances; Z79.899 Other long term (current) drug therapy; Z79.82 Long term (current) use of aspirin; W22.8XXA Striking against or struck by other objects, initial encounter; Y92.009 Unspecified place in unspecified non-institutional (private) residence as the place of occurrence of the external cause
CPT/HCPCS: 36415; 70450; 80053; 84484; 85025; 93005; 93010; 99284; 99285

== ENCOUNTER 2022-08-21 16:36 | Emergency (ER) | payer MEDICARE, OTHER | END 2022-08-21 17:36 | disposition home or self-care (01) | LOC: VM.ED 16:36 | DX: I95.1 Orthostatic hypotension (principal); I25.119 Atherosclerotic heart disease of native coronary artery with unspecified angina pectoris; E78.00 Pure hypercholesterolemia, unspecified; I13.0 Hypertensive heart and chronic kidney disease with heart failure and stage 1 through stage 4 chronic kidney disease, or unspecified chronic kidney disease; E11.22 Type 2 diabetes mellitus with diabetic chronic kidney disease; N18.9 Chronic kidney disease, unspecified; I50.9 Heart failure, unspecified; D63.1 Anemia in chronic kidney disease; E11.42 Type 2 diabetes mellitus with diabetic polyneuropathy; M10.9 Gout, unspecified; E66.9 Obesity, unspecified; Z91.013 Allergy to seafood; Z91.041 Radiographic dye allergy status; Z88.8 Allergy status to other drugs, medicaments and biological substances; Z79.82 Long term (current) use of aspirin; Z79.899 Other long term (current) drug therapy; Z95.1 Presence of aortocoronary bypass graft; Z68.33 Body mass index [BMI] 33.0-33.9, adult | CPT/HCPCS: 99284 ==

== ENCOUNTER 2023-06-26 19:58 | Emergency (ER) | payer MEDICARE, OTHER ==
[2023-06-26 20:55] LABS: BILIRUBIN,URINE SMALL (NEGATIVE); COLOR,URINE DARK YELLOW (YELLOW); GLUCOSE,URINE NEGATIVE (NEGATIVE); KETONES,URINE TRACE mg/dL (NEGATIVE); LEUKOCYTE ESTERASE,URINE LARGE (NEGATIVE); NITRITE,URINE NEGATIVE (NEGATIVE); OCCULT BLOOD,URINE LARGE (NEGATIVE); PROTEIN,URINE >=300 mg/dL (NEGATIVE); UROBILINOGEN,URINE 0.2 EU/dL (0.2)
[2023-06-26 20:57] LABS: APPEARANCE,URINE CLOUDY (CLEAR)
[2023-06-26 21:02] LABS: MUCUS,URINE NOT SEEN /LPF (NOT SEEN); RBC,URINE 50-75 /HPF (NOT SEEN); SQUAMOUS EPITHELIAL CELLS,UR FEW /HPF (NOT SEEN); WBC,URINE 75-100 /HPF (NOT SEEN)
[2023-06-26 21:03] LABS: BACTERIA,URINE MANY /HPF (NOT SEEN)
[2023-06-26 21:07] VITALS: BP 134/60; PULSE 74
[2023-06-26] MEDS: Cephalexin 500 MG Cap PO ONE (21:17)
[2023-06-26] MEDS: Take Home: Cephalexin 500 MG Cap, 6 Cap Pack PO ONE (21:18)
== END 2023-06-26 21:30 | disposition home or self-care (01) ==
LOC: VM.ED 19:58
DX: N39.0 Urinary tract infection, site not specified (principal); I13.0 Hypertensive heart and chronic kidney disease with heart failure and stage 1 through stage 4 chronic kidney disease, or unspecified chronic kidney disease; E11.22 Type 2 diabetes mellitus with diabetic chronic kidney disease; N18.9 Chronic kidney disease, unspecified; I50.9 Heart failure, unspecified; I25.10 Atherosclerotic heart disease of native coronary artery without angina pectoris; K21.9 Gastro-esophageal reflux disease without esophagitis; E11.40 Type 2 diabetes mellitus with diabetic neuropathy, unspecified; M10.9 Gout, unspecified; Z79.82 Long term (current) use of aspirin; Z79.899 Other long term (current) drug therapy; Z95.1 Presence of aortocoronary bypass graft; Z91.041 Radiographic dye allergy status; Z91.013 Allergy to seafood; Z88.8 Allergy status to other drugs, medicaments and biological substances; Z91.018 Allergy to other foods
CPT/HCPCS: 81001; 87086; 87088; 87186; 99283; A9270

== ENCOUNTER 2024-06-29 11:54 | Emergency (ER) | payer MEDICARE, OTHER ==
[2024-06-29] MEDS ORDERED: Sodium Chloride 0.9% 10 ML Syringe FLUSH PRN (12:27)
[2024-06-29] MEDS: HYDROmorphone 1 MG/ML Syringe IVPUSH ONE ×2 (12:36→13:23)
[2024-06-29] MEDS: Ondansetron 4 MG/2 ML SDV IVPUSH ONE (12:36)
[2024-06-29 12:50] LABS: BASOPHILS PERCENT AUTO 0.7 % (0.2-1.2); EOSINOPHILS ABSOLUTE AUTO 0.1 x10^3/uL (0.0-0.5); EOSINOPHILS PERCENT AUTO 1.2 % (0.0-4.0); HEMATOCRIT 32.9 % (40.0-52.0); LYMPHOCYTES ABSOLUTE AUTO 0.4 x10^3/uL (1.0-4.8); LYMPHOCYTES PERCENT AUTO 8.8 % (25.0-50.0); MEAN CORPUSCULAR HEMOGLOBIN 37.9 pg (26.0-32.0); MEAN CORPUSCULAR HGB CONC 33.4 g/dL (32.0-36.0); MEAN CORPUSCULAR VOLUME 113.4 fL (78.0-93.0); MONOCYTES ABSOLUTE AUTO 0.5 x10^3/uL (0.0-0.8); MONOCYTES PERCENT AUTO 11.2 % (2.0-11.0); NEUTROPHILS ABSOLUTE AUTO 3.3 x10^3/uL (1.8-7.7); NEUTROPHILS PERCENT AUTO 78.1 % (50.0-80.0); PLATELET COUNT,PLT 83 x10^3/uL (130-400)
[2024-06-29 12:57] LABS: WHITE BLOOD CELL COUNT,WBC 4.2 x10^3/uL (4.0-10.0)
[2024-06-29] MEDS: ceFAZolin 2 GM Vial IVPUSH ONE (13:04)
[2024-06-29 13:06] LABS: A/G RATIO 0.81; ALBUMIN 2.9 g/dL (3.4-5.0); BILIRUBIN TOTAL 0.6 mg/dL (0.2-1.0); C-REACTIVE PROTEIN 2.27 mg/dL (<=0.50); CALCIUM 8.8 mg/dL (8.5-10.1); EST CRCL DRUG DOSING (CG) 12.12 mL/min; POTASSIUM,K 3.9 mmol/L (3.5-5.1); PROTEIN TOTAL,TP 6.5 g/dL (6.4-8.2)
[2024-06-29 13:07] LABS: ANION GAP 13.9 mmol/L (5-15)
[2024-06-29 13:08] LABS: CREATININE 4.7 mg/dL (0.70-1.30)
[2024-06-29 14:27] VITALS: BP 110/58; PULSE 92
== END 2024-06-29 14:15 | disposition home or self-care (01) ==
LOC: VM.ED 11:54
DX: I87.2 Venous insufficiency (chronic) (peripheral) (principal); L03.115 Cellulitis of right lower limb; L03.116 Cellulitis of left lower limb; I13.0 Hypertensive heart and chronic kidney disease with heart failure and stage 1 through stage 4 chronic kidney disease, or unspecified chronic kidney disease; I50.9 Heart failure, unspecified; N18.9 Chronic kidney disease, unspecified; I25.10 Atherosclerotic heart disease of native coronary artery without angina pectoris; I25.2 Old myocardial infarction; E78.00 Pure hypercholesterolemia, unspecified; E11.42 Type 2 diabetes mellitus with diabetic polyneuropathy; E11.22 Type 2 diabetes mellitus with diabetic chronic kidney disease; E66.9 Obesity, unspecified; Z91.013 Allergy to seafood; Z91.041 Radiographic dye allergy status; Z88.6 Allergy status to analgesic agent; Z91.018 Allergy to other foods; Z79.82 Long term (current) use of aspirin; Z79.899 Other long term (current) drug therapy; Z95.1 Presence of aortocoronary bypass graft; Z68.34 Body mass index [BMI] 34.0-34.9, adult
CPT/HCPCS: 36415; 80053; 83605; 85025; 86140; 87040; 87070; 87077; 87147; 87186; 96374; 96375; 96376; 99283-25; 99284; J0690; J1171; J2405

== ENCOUNTER 2024-10-10 14:39 | Emergency (ER) | payer MEDICARE, OTHER ==
[2024-10-10 15:17] LABS: BASOPHILS PERCENT AUTO 0.9 % (0.2-1.2); EOSINOPHILS ABSOLUTE AUTO 0.1 x10^3/uL (0.0-0.5); EOSINOPHILS PERCENT AUTO 1.6 % (0.0-4.0); HEMATOCRIT 30.3 % (40.0-52.0); HEMOGLOBIN 10.3 g/dL (14.0-18.0); IMMATURE GRAN ABSOLUTE AUTO 0.01 x10^3/uL (0.00-0.07); LYMPHOCYTES ABSOLUTE AUTO 0.5 x10^3/uL (1.0-4.8); LYMPHOCYTES PERCENT AUTO 10.3 % (25.0-50.0); MEAN CORPUSCULAR HEMOGLOBIN 39.6 pg (26.0-32.0); MEAN CORPUSCULAR VOLUME 116.5 fL (78.0-93.0); MONOCYTES ABSOLUTE AUTO 0.7 x10^3/uL (0.0-0.8); MONOCYTES PERCENT AUTO 15.2 % (2.0-11.0); NEUTROPHILS ABSOLUTE AUTO 3.2 x10^3/uL (1.8-7.7); NEUTROPHILS PERCENT AUTO 71.8 % (50.0-80.0); WHITE BLOOD CELL COUNT,WBC 4.5 x10^3/uL (4.0-10.0)
[2024-10-10 15:22] VITALS: BP 105/56; PULSE 88
[2024-10-10 15:32] LABS: CALCIUM 8.9 mg/dL (8.5-10.1); EST CRCL DRUG DOSING (CG) 10.17 mL/min; PLATELET COUNT,PLT 103 x10^3/uL (130-400); POTASSIUM,K 4.3 mmol/L (3.5-5.1)
[2024-10-10 15:33] LABS: ANION GAP 13.3 mmol/L (5-15)
[2024-10-10 15:34] LABS: CREATININE 5.6 mg/dL (0.70-1.30)
[2024-10-10] MEDS: Take Home: Acetaminophen/HYDROcodone 325-5 MG, 5 Tab Pack PO ONE (15:49)
== END 2024-10-10 15:56 | disposition home or self-care (01) ==
LOC: VM.ED 14:39 → SUPCPDRO 14:39 → VM.ED 15:56
DX: M79.604 Pain in right leg (principal); M79.605 Pain in left leg; E78.00 Pure hypercholesterolemia, unspecified; K21.9 Gastro-esophageal reflux disease without esophagitis; Z91.041 Radiographic dye allergy status; Z91.013 Allergy to seafood; Z91.018 Allergy to other foods; Z88.8 Allergy status to other drugs, medicaments and biological substances
CPT/HCPCS: 36415; 80048; 85025; 99283; 99284; A9270-GY

== ENCOUNTER 2024-10-26 07:54 | Observation (INO) | payer MEDICARE, OTHER ==
[2024-10-26 07:55] LABS: BASOPHILS PERCENT AUTO 0.5 % (0.2-1.2); EOSINOPHILS ABSOLUTE AUTO 0.1 x10^3/uL (0.0-0.5); EOSINOPHILS PERCENT AUTO 1.1 % (0.0-4.0); HEMATOCRIT 30.5 % (40.0-52.0); HEMOGLOBIN 10.2 g/dL (14.0-18.0); IMMATURE GRAN ABSOLUTE AUTO 0.01 x10^3/uL (0.00-0.07); LYMPHOCYTES ABSOLUTE AUTO 0.5 x10^3/uL (1.0-4.8); LYMPHOCYTES PERCENT AUTO 11.2 % (25.0-50.0); MEAN CORPUSCULAR HEMOGLOBIN 40.2 pg (26.0-32.0); MEAN CORPUSCULAR HGB CONC 33.4 g/dL (32.0-36.0); MONOCYTES ABSOLUTE AUTO 0.6 x10^3/uL (0.0-0.8); MONOCYTES PERCENT AUTO 14.4 % (2.0-11.0); NEUTROPHILS ABSOLUTE AUTO 3.2 x10^3/uL (1.8-7.7); NEUTROPHILS PERCENT AUTO 72.6 % (50.0-80.0); PLATELET COUNT,PLT 90 x10^3/uL (130-400); RED BLOOD CELL COUNT 2.54 x10^6/uL (4.5-6.0); WHITE BLOOD CELL COUNT,WBC 4.4 x10^3/uL (4.0-10.0)
[2024-10-26 08:08] LABS: INR 1.2 (0.9-1.1); PROTHROMBIN TIME 12.6 SEC (9.6-12.0)
[2024-10-26 08:09] LABS: MEAN CORPUSCULAR VOLUME 120.1 fL (78.0-93.0)
[2024-10-26 08:17] LABS: A/G RATIO 0.78; ALANINE AMINOTRANSFERASE,ALT 21 U/L (16-63); ALBUMIN 2.9 g/dL (3.4-5.0); ALKALINE PHOSPHATASE 116 U/L (46-116); ASPARTATE AMNIOTRANSFERASE,AST 37 U/L (15-37); BLOOD UREA NITROGEN,BUN 27 mg/dL (7-18); CALCIUM 9.8 mg/dL (8.5-10.1); CARBON DIOXIDE,CO2 29 mmol/L (21-32); CHLORIDE,CL 98 mmol/L (98-107); GLUCOSE RANDOM 125 mg/dL (70-99); MAGNESIUM 2.1 mg/dL (1.8-2.4); POTASSIUM,K 4.1 mmol/L (3.5-5.1); PROTEIN TOTAL,TP 6.6 g/dL (6.4-8.2); SODIUM,NA 137 mmol/L (136-145)
[2024-10-26 08:21] LABS: ANION GAP 14.1 mmol/L (5-15); ESTIMATED GFR 14 mL/min (>=60)
[2024-10-26] MEDS ORDERED: Ondansetron 4 MG Tab.DIS PO PRN (14:36)
[2024-10-26] MEDS ORDERED: Sodium Chloride 0.9% 10 ML Syringe FLUSH PRN (14:36)
[2024-10-26] MEDS ORDERED: Acetaminophen 325 MG Tab PO PRN (14:36)
[2024-10-26 16:51] VITALS: BP 84/36; PULSE 48
== END 2024-10-26 18:10 | disposition short-term general hospital (02) ==
LOC: VM.ED 07:54 → VM.MS 13:10
PROVIDERS: ADMIT Nurse Practitioner Family; ATTEND Nurse Practitioner Family
DX: G93.40 Encephalopathy, unspecified (principal); S09.90XA Unspecified injury of head, initial encounter; I13.2 Hypertensive heart and chronic kidney disease with heart failure and with stage 5 chronic kidney disease, or end stage renal disease; I50.9 Heart failure, unspecified; N18.6 End stage renal disease; E11.22 Type 2 diabetes mellitus with diabetic chronic kidney disease; E11.42 Type 2 diabetes mellitus with diabetic polyneuropathy; Z91.013 Allergy to seafood; Z99.2 Dependence on renal dialysis; Z88.8 Allergy status to other drugs, medicaments and biological substances; Z91.041 Radiographic dye allergy status; W19.XXXA Unspecified fall, initial encounter
CPT/HCPCS: 36415; 70450; 72125; 80053; 83735; 84484; 85025; 85610; 93005; 99285; G0378; 12004; 93010; 99284